=== PATIENT | female | born 1980 | race Caucasian/White ===

== ENCOUNTER 2016-07-16 15:57 | Emergency (ER) | payer SELFPAY ==
[~2016-07-16] VITALS: Ht 165.1 cm; Wt 70.0 kg
[~2016-07-16 15:57] MED LIST: BACT800T5 PO; EFFE75CA PO; FLUO10TA PO; IBUP800T23 PO; PRENTAB62 PO
[2016-07-16 15:58] VITALS: BP 120/74; PULSE 95; RESP 12; TEMP 97.9; O2SAT 98
[2016-08-27] MEDS ORDERED: BACL10TA PO (11:09)
[2016-08-28] MEDS ORDERED: CEFE2INJ2 IV (14:13)
== END 2016-07-16 16:27 | disposition left against medical advice (07) ==
LOC: NED 15:57
DX: R50.9 Fever, unspecified (principal); Z53.21 Procedure and treatment not carried out due to patient leaving prior to being seen by health care provider
CPT/HCPCS: 99281

== ENCOUNTER 2016-07-27 14:17 | Inpatient (IN) | payer OTHER ==
[2016-07-27 15:30] VITALS: BP 120/76; TEMP 98.3; O2SAT 97
--- NOTE | 2016-07-27 16:11 | PD ---
HPI Chief Complaint: Back/ Neck Pain or Injury Time Seen by Provider: 16:11 Travel History International Travel<30 days: No Contact w/Intl Traveler<30days: No History of Present Illness HPI 36 year old female with PMH of chronic back pain, presents to the ED via EMS for evaluation of one week history of left sided back pain. 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 Rated 10/10, worsened by movement. Patient also complains of increased urinary urgency, dysuria. She denies fever, chills. She states that she was seen at [facility], prescribed lortab and muscle relaxants with no improvement of symptoms. She states that she has been lying flat on her back for the last few days. She states that she was given "8 of Dilaudid" by a friend which helped her pain. Denies IVDA. PFSH Past Medical History Bipolar Disorder: Yes (? 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) Menopausal: No : 1 Para: 1 Social History Alcohol Use: Yes Tobacco Use: Yes Substance Use: Yes Allergies-Medications (Allergen,Severity, Reaction): Coded Allergies: Dimetapp (Verified Allergy, Severe, Hives, 11/21/15) Reported Meds & Prescriptions Reported Meds & Active Scripts Active Ibuprofen 800 Mg Tab 800 Mg PO TID Bactrim DS (Sulfamethoxazole-Trimethoprim DS) 1 Tab Tab 1 Tab PO BID Prozac (Fluoxetine HCl) 10 Mg Tab 10 Mg PO DAILY Vitamins Plus ( Vit W/ Ferrous Fumara) Plus Tab 1 Tab PO DAILY Reported Effexor Xr (Venlafaxine HCl) 75 Mg Cap 75 Mg PO BID Vitamins Plus ( Vit W/ Ferrous Fumara) Plus Tab 1 Tab PO Review of Systems Except as stated in HPI: all other systems reviewed are Neg Physical Exam Narrative GENERAL: Well-nourished, well-developed thin white female, sleeping under a blanket. SKIN: Warm and dry. Multiple tattoos. Multiple superficial scratches and punctures of the upper extremities without signs of infection. Patient states these are from yard work. HEAD: Normocephalic. EYES: No scleral icterus. No injection or drainage. NECK: Supple, trachea midline. No JVD or lymphadenopathy. No meningeal signs. CARDIOVASCULAR: Regular rate and rhythm without murmurs, gallops, or rubs. 2+ DP and radial pulses bilaterally. RESPIRATORY: Breath sounds clear and equal bilaterally. No accessory muscle use. GASTROINTESTINAL: Abdomen soft, nondistended. Tender to suprapubic palpation. MUSCULOSKELETAL: No cyanosis, or edema. NEUROLOGICAL: Awake and alert. Cranial nerves II through XII intact. Motor and sensory grossly within normal limits. 5/5 muscle strength in dorsiflexion, plantar flexion, knee flexion, hip flexion, manager regulatory strength. Normal speech. BACK: No midline tenderness or obvious deformity. No CVA tenderness. Tender to palpation of the left lateral flank and musculature of the left mid back. Data Data Last Documented VS Vital Signs Date Time Temp Pulse Resp B/P Pulse Ox O2 Delivery O2 Flow Rate FiO2 07/27/16 21:42 101 18 135/85 97 Room Air 07/27/16 15:30 98.3 Orders Complete Blood Count With Diff (07/27/16 16:23) Comprehensive Metabolic Panel (07/27/16 16:23) Urinalysis - C+S If Indicated (07/27/16 16:23) Ed Urine Pregnancytest Poc (07/27/16 16:23) Ct Abd/Pel W/O Iv Contrast (07/27/16 16:23) Ecg Monitoring (07/27/16 16:23) Iv Access Insert/Monitor (07/27/16 16:23) Sodium Chloride 0.9% Flush (Ns Flush) (07/27/16 16:30) Morphine Inj (Morphine Inj) (07/27/16 18:15) Sodium Chlor 0.9% 1000 Ml Inj (Ns 1000 M (07/27/16 18:08) Urine Culture (07/27/16 18:15) Ceftriaxone Inj (Rocephin Inj) (07/27/16 19:00) Chest, Single Ap (07/27/16 ) Morphine Inj (Morphine Inj) (07/27/16 21:30) Methocarbamol (Robaxin) (07/27/16 21:45) Blood Culture (07/27/16 22:04) Electrocardiogram (07/27/16 ) Vancomycin Inj (Vancomycin Inj) (07/27/16 22:15) Admit Order (Ed Use Only) (07/27/16 23:11) Labs Laboratory Tests Test 07/27/16 07/27/16 17:30 18:15 White Blood Count 9.6 TH/MM3 Red Blood Count 4.73 MIL/MM3 Hemoglobin 13.7 GM/DL Hematocrit 39.7 % Mean Corpuscular Volume 84.0 FL Mean Corpuscular Hemoglobin 29.0 PG Mean Corpuscular Hemoglobin 34.5 % Concent Red Cell Distribution Width 13.7 % Platelet Count 450 TH/MM3 Mean Platelet Volume 7.8 FL Neutrophils (%) (Auto) 81.4 % Lymphocytes (%) (Auto) 9.7 % Monocytes (%) (Auto) 8.3 % Eosinophils (%) (Auto) 0.3 % Basophils (%) (Auto) 0.3 % Neutrophils # (Auto) 7.8 TH/MM3 Lymphocytes # (Auto) 0.9 TH/MM3 Monocytes # (Auto) 0.8 TH/MM3 Eosinophils # (Auto) 0.0 TH/MM3 Basophils # (Auto) 0.0 TH/MM3 CBC Comment DIFF FINAL Differential Comment Sodium Level 137 MEQ/L Potassium Level 4.1 MEQ/L Chloride Level 98 MEQ/L Carbon Dioxide Level 26.3 MEQ/L Anion Gap 13 MEQ/L Blood Urea Nitrogen 14 MG/DL Creatinine 0.58 MG/DL Estimat Glomerular Filtration 118 ML/MIN Rate Random Glucose 109 MG/DL Calcium Level 8.9 MG/DL Total Bilirubin 0.4 MG/DL Aspartate Amino Transf 19 U/L (AST/SGOT) Alanine Aminotransferase 22 U/L (ALT/SGPT) Alkaline Phosphatase 75 U/L Total Protein 8.9 GM/DL Albumin 3.0 GM/DL Urine Color YELLOW Urine Turbidity CLOUDY Urine pH 6.0 Urine Specific [place] 1.016 Urine Protein TRACE mg/dL Urine Glucose (UA) NEG mg/dL Urine Ketones NEG mg/dL Urine Occult Blood MOD Urine Nitrite NEG Urine Bilirubin NEG Urine Urobilinogen 4.0 MG/DL Urine Leukocyte Esterase LARGE Urine RBC 4 /hpf Urine WBC 30 /hpf Urine Squamous Epithelial 58 /hpf Cells Urine Bacteria MOD /hpf Urine Hyaline Casts 9 /lpf Urine Mucus FEW /lpf Microscopic Urinalysis Comment CULTURE INDICATED MDM Medical Decision Making Medical Screen Exam Complete: Yes Emergency Medical Condition: Yes Differential Diagnosis musculoskeletal pain versus cystitis versus pyelonephritis versus nephroureterolithiasis versus spinal epidural abscess versus endocarditis versus drug-seeking behavior versus Narrative Course 36 year old female with PMH of chronic back pain, history IVDA, presents to the ED via EMS for evaluation of one week history of left sided back pain. 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 Rated 10/10, worsened by movement. Patient also complains of increased urinary urgency, dysuria. She denies fever, chills, current IVDU. She states that she was seen at [facility], prescribed lortab and muscle relaxants with no improvement of symptoms. She states that she has been lying flat on her back for the last few days. She states that she was given "8 of Dilaudid" by a friend which helped her pain. Denies IVDA. Vitals reviewed. Patient is tachycardic on presentation. Physical exam reveals a nontoxic-appearing white female, lying flat on her back, in no acute distress. Patient does become tearful, moaning with attempted physical exam. Abdominal exam positive for suprapubic tenderness. No midline tenderness of the back. Tender to palpation of the left flank and musculature of the left mid back. 5/5 strength of the bilateral lower extremities. No focal neuro deficits. IV established. Patient was administered a liter fluid, 4 mg morphine. CBC: WBC 9.6. Hemoglobin 13.7. CMP: unremarkable UA: Cloudy, moderate occult blood, large leukocyte esterase, 30 WBCs, moderate bacteria, culture pending. UPT: Negative CT of abdomen and pelvis: 1. left lower lobe consolidation, most characteristic of pneumonia. 2. moderate constipation with ileus. 3. renal calculi without renal uropathy. 4. mild bladder distention, no bladder stones per radiology read. CXR: No acute disease per radiology read. Patient was administered IV Rocephin. She reports some improvement of her symptoms on recheck. Patient does endorse a chronic cough which she states sounds "wet" but nonproductive. EKG, chest x-ray ordered, IV vancomycin, blood cultures 3 ordered. I discussed the patient, workup and plan of care with Dr. Evans. He feels that this patient is high risk for endocarditis secondary to IVDA. We'll admit to the medicine service for rule out. I spoke with who will accept this patient to the medical service for IV antibiotics. Please see medicine notes for disposition. Diagnosis Primary Impression: Pyelonephritis Additional Impressions: Left lower lobe pneumonia Qualified Code: J18.1 - Pneumonia of left lower lobe due to infectious organism History of intravenous drug use in remission Nikki Ackerman Jul 27, 2016 16:11
[2016-07-27] MEDS ORDERED: SODIUM CHLORIDE 0.9% FLUSH 5 ML FLUSH IVF PRN (16:30)
[2016-07-27] MEDS ORDERED: SODIUM CHLOR 0.9% 1000 ML INJ 1,000 ML IV SCH (18:08)
[2016-07-27] MEDS ORDERED: MORPHINE SULFATE 4 MG/ML INJ IV PUSH ONE ×2 (18:15→21:30)
[2016-07-27 18:23] LABS: AUTOMATED NEUTROPHIL # 7.8 TH/MM3 (1.8-7.7); BASOPHIL % 0.3 % (0.0-2.0); EOSINOPHIL % 0.3 % (0.0-4.0); HEMATOCRIT 39.7 % (35.0-46.0); HEMO FLAGS DIFF FINAL; LYMPH % 9.7 % (9.0-44.0); LYMPHOCYTE # 0.9 TH/MM3 (1.0-4.8); MEAN CORPUSCULAR HGB CONC 34.5 % (32.0-36.0); MONO % 8.3 % (0.0-8.0); NEUT % 81.4 % (16.0-70.0); PLATELET COUNT 450 TH/MM3 (150-450); RED BLOOD COUNT 4.73 MIL/MM3 (4.00-5.30); RED CELL DISTRIBUTION WIDTH 13.7 % (11.6-17.2); WHITE BLOOD COUNT 9.6 TH/MM3 (4.0-11.0)
[2016-07-27 18:39] LABS: BACTERIA, URINE MOD /hpf; BLOOD, URINE MOD (NEG); COMMENT (UR) CULTURE INDICATED; CULTURE IF INDICATED CULTURE INDICATED; GLUCOSE,URINE NEG (NEG); HYALINE CAST, URINE 9 /lpf (RARE); KETONE, URINE NEG (NEG); MUCUS URINE FEW /lpf (OCC); NITRITE,URINE NEG (NEG); SQUAMOUS EPITHELIAL CELL URINE 58 /hpf (0-5); URINE COLOR YELLOW (YELLW/STRAW)
[2016-07-27 18:47] LABS: ANION GAP 13 MEQ/L (5-15); AST (GOT) 19 U/L (15-37); BICARBONATE 26.3 MEQ/L (21.0-32.0); BLOOD UREA NITROGEN 14 MG/DL (7-18); CHLORIDE 98 MEQ/L (98-107); GLOMERULAR FILTRATION RATE 118 ML/MIN (>89); POTASSIUM 4.1 MEQ/L (3.5-5.1); SODIUM (NA) 137 MEQ/L (136-145)
[2016-07-27 18:50] LABS: ALKALINE PHOSPHATASE 75 U/L (45-117); ALT (GPT) 22 U/L (10-53); TOTAL BILIRUBIN ADULT 0.4 MG/DL (0.2-1.0)
[2016-07-27] MEDS ORDERED: cefTRIAXone INJ 1,000 MG in SODIUM CHLORIDE 0.9% INJ 100 ML IV ONE (19:00)
[2016-07-27 19:40] VITALS: BP 133/66; PULSE 74; RESP 20; O2SAT 98
--- NOTE | 2016-07-27 20:08 | RADRPT ---
EXAM DATE/TIME: 07/27/2016 19:04 [facility] COMPARISON: No previous studies available for comparison. INDICATIONS : Right-sided back pain with dysuria ORAL CONTRAST: No oral contrast ingested. RADIATION DOSE: 9.96 CTDIvol (mGy) MEDICAL HISTORY : Seizures. SURGICAL HISTORY : None documented. ENCOUNTER: Initial ACUITY: 1 week PAIN SCALE: 6/10 LOCATION: Right flank TECHNIQUE: Volumetric scanning of the abdomen and pelvis was performed. Using automated exposure control and ad justment of the mA and/or kV according to patient size, radiation dose was kept as low as reasonably achievable to obtain optimal diagnostic quality images. FINDINGS: There is consolidation in the left lower lobe medially most characteristic of a bronchopneumonia. No acute findings in the liver, spleen, adrenals, kidneys or pancreas. There is a diffuse ileus, cynthia cially large bowel with moderate constipation. No renal calculi or hydronephrosis identified. No acute bony abnormalities. CONCLUSION: 1. Left lower lobe consolidation medially most characteristic of pneumonia. Right lung is clear. 2. Moderate constipation with ileus. 3. No renal calculi or evidence for obstructive uropathy. 4. Bladder mildly distended. No bladder calculi. Ovidio Mac MD on July 27, 2016 at 20:03 Board Certified Radiologist. This report was verified electronically.
[2016-07-27 21:42] VITALS: BP 135/85; PULSE 101; RESP 18; O2SAT 97
[2016-07-27] MEDS ORDERED: METHOCARBAMOL 500 MG TAB PO ONE (21:45)
--- NOTE | 2016-07-27 21:53 | RADRPT ---
EXAM DATE/TIME: 07/27/2016 20:57 [facility] COMPARISON: No previous studies available for comparison. INDICATIONS : Chest and back pain. MEDICAL HISTORY : Seizures. SURGICAL HISTORY : None. ENCOUNTER: Initial ACUITY: 1 week PAIN SCORE: 10/10 LOCATION: Bilateral chest FINDINGS: A single view of the chest demonstrates the lungs to be symmetrically aerated without evidence of mas s, infiltrate or effusion. The cardiomediastinal contours are unremarkable. Osseous structures are intact. CONCLUSION: No acute disease. Ovidio Mac MD on July 27, 2016 at 21:51 Board Certified Radiologist. This report was verified electronically.
[2016-07-27] MEDS ORDERED: VANCOMYCIN INJ 1,150 MG in SODIUM CHLOR 0.9% 250 ML INJ 250 ML IV ONE (22:15)
[2016-07-27] MEDS ORDERED: NALOXONE HCL 0.4 MG/ML AMP IV PRN (23:45)
[2016-07-28] VITALS (7 sets, daily range): BP systolic 105–128; BP diastolic 67–84; PULSE 88–111; RESP 18–20; TEMP 97.6–98.7; O2SAT 96–99
[2016-07-28] MEDS ORDERED: diphenhydrAMINE HCL 25 MG CAP PO ONE (01:15)
[2016-07-28 05:20] LABS: AUTOMATED NEUTROPHIL # 6.5 TH/MM3 (1.8-7.7); BASOPHIL % 0.2 % (0.0-2.0); EOSINOPHIL % 0.3 % (0.0-4.0); HEMATOCRIT 36.5 % (35.0-46.0); HEMO FLAGS DIFF FINAL; LYMPH % 13.2 % (9.0-44.0); LYMPHOCYTE # 1.1 TH/MM3 (1.0-4.8); MEAN CELL VOLUME 84.7 FL (80.0-100.0); MEAN CORPUSCULAR HEMOGLOBIN 28.9 PG (27.0-34.0); MEAN CORPUSCULAR HGB CONC 34.1 % (32.0-36.0); MONO % 9.5 % (0.0-8.0); NEUT % 76.8 % (16.0-70.0); PLATELET COUNT 390 TH/MM3 (150-450); RED BLOOD COUNT 4.31 MIL/MM3 (4.00-5.30); RED CELL DISTRIBUTION WIDTH 13.7 % (11.6-17.2); WHITE BLOOD COUNT 8.5 TH/MM3 (4.0-11.0)
[2016-07-28 05:37] LABS: BICARBONATE 25.9 MEQ/L (21.0-32.0)
[2016-07-28] MEDS ORDERED: CYCLOBENZAPRINE HCL 10 MG TAB PO PRN (08:00)
[2016-07-28] MEDS ORDERED: PILL SPLITTER OTHER PRN (08:15)
[2016-07-28] MEDS: LEVOFLOXACIN 750 MG PREMIX INJ 150 ML IV SCH (08:16)
[2016-07-28] MEDS: ENOXAPARIN SODIUM 40 MG/0.4 ML SYRINGE SQ SCH (08:16)
[2016-07-28] MEDS: SODIUM CHLORIDE 0.9% FLUSH 5 ML FLUSH FLUSH SCH ×2 (08:17→19:58)
--- NOTE | 2016-07-28 14:33 | HHI.HP ---
HPI Service [facility] Primary Care Physician No Primary Care Physician Admission Diagnosis pyelonephritis, LLL pneumonia Diagnoses: Chief Complaint: back pain Travel History International Travel<30 Days: No Contact w/Intl Traveler <30 Da: No Traveled to Known Affected Are: No History of Present Illness 36-year-old female with history of IVDU, chronic back pain, sciatica, migraines , presents with a one-week history of back pain. 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 Denies fevers or chills. She went to [facility], given Lortab and muscle relaxers without any relief. States she has been mostly nonambulatory over the past few days. Her friend gave her a milligrams of oral Dilaudid which did eventually help the pain. Patient initially reported increase in urinary urgency and dysuria, UA with possible UTI. She denies any nausea/vomiting/diarrhea/ constipation. CT abdomen was done in the ER, showed LLL infiltrate. Upon questioning, she does report productive cough with yellow sputum for 1 month now worse over the past week. Denies any chest pain. She states the cough exacerbates her back pain. She admits to IV drug use, mostly with opiates, last use 8 days ago. She denies any history of endocarditis. She states she has been checked for HIV recently and was negative. Review of Systems Constitutional: DENIES: Diaphoretic episodes, Fever, Chills, Dizziness Endocrine: DENIES: Polydipsia, Polyuria, Polyphagia Eyes: DENIES: Blurred vision, Vision loss, Double Vision Ears, nose, mouth, throat: DENIES: Throat pain, Ear Pain, Running Nose, Odynophagia Respiratory: COMPLAINS OF: Cough, Sputum production, DENIES: Wheezing, Shortness of breath Cardiovascular: DENIES: Chest pain, Palpitations, Syncope, Dyspnea on Exertion , Lower Extremity Edema Gastrointestinal: DENIES: Abdominal pain, Constipation, Diarrhea, Nausea, Vomiting Genitourinary: COMPLAINS OF: Urgency, Dysuria, DENIES: Urinary frequency Musculoskeletal: COMPLAINS OF: Back pain, DENIES: Joint pain, Neck pain Integumentary: DENIES: Abnormal pigmentation, Pruritus, Rash Hematologic/lymphatic: DENIES: Bruising, Lymphadenopathy Immunologic/allergic: DENIES: Eczema, Urticaria Neurologic: COMPLAINS OF: Abnormal gait, DENIES: Headache, Localized weakness , Paresthesias Psychiatric: DENIES: Anxiety, Depression Past Family Social History Past Medical History chronic back pain sciatica migraines Past Surgical History Denies any prior surgeries. Reported Medications Denies taking any medications on a regular basis. Took friend's po dilaudid recently. Also recently prescribed [place] and muscle relaxers. Allergies: Coded Allergies: Dimetapp (Verified Allergy, Severe, Hives, 11/21/15) Active Ordered Medications Current Medications Medications (Trade) Dose Ordered Sig/Mendez Route Start Time Stop Time Status Last Admin (NS Flush) 2 ml UNSCH PRN FLUSH 07/27/16 23:45 (NS Flush) 2 ml BID FLUSH 07/28/16 09:00 07/28/16 08:17 (Lovenox Inj) 40 mg Q24H SQ 07/28/16 09:00 07/28/16 08:16 Naloxone HCl 0.4 mg 0.4 mg UNSCH PRN IV 07/27/16 23:45 (Levaquin 750 Mg Premix Inj) 150 ml @ 100 mls/hr Q24H IV 07/28/16 09:00 07/28/16 08:16 (Flexeril) 5 mg Q8H PRN PO 07/28/16 08:00 07/28/16 08:17 (Pill Splitter) 1 ea UNSCH PRN OTHER 07/28/16 08:15 Family History Denies any significant family history of cancer, stroke, diabetes, or heart disease. Social History Tobacco Use: 1PPD since teenager, now down to 4 cigarettes daily and using vapor Alcohol Use: Denies Illicit Drug use: The patient admits to IVDU, last use 8 days ago, injects "Roxys" and other opiates. Physical Exam Vital Signs Vital Signs Date Time Temp Pulse Resp B/P Pulse Ox O2 Delivery O2 Flow Rate FiO2 07/28/16 08:13 Room Air 2/7/17 08:13 97.9 96 18 125/78 96 07/28/16 08:00 104 07/28/16 06:08 98.7 88 20 125/78 97 07/28/16 03:42 100 07/28/16 00:38 96 18 123/84 99 Room Air 07/27/16 21:42 101 18 135/85 97 Room Air 07/27/16 19:40 74 20 133/66 98 Room Air 07/27/16 15:30 98.3 110 16 120/76 97 Room Air Physical Exam GENERAL: Well-nourished, well-developed middle aged female patient in [facility]. SKIN: Warm and dry. No rash. HEAD: Normocephalic. Atraumatic. EYES: Pupils equal and round. No scleral icterus. No injection or drainage. ENT: No nasal bleeding or discharge. Mucous membranes pink and moist. Oral mucosa with small amount of white exudate. NECK: Supple. Trachea midline. CARDIOVASCULAR: Regular rate and rhythm. S1, S2 noted. No murmur appreciated. RESPIRATORY: No accessory muscle use. Clear to auscultation. Breath sounds equal bilaterally. GASTROINTESTINAL: Abdomen soft, non-tender, nondistended. Normoactive bowel sounds x4. MUSCULOSKELETAL: No obvious deformities. Extremities without clubbing, cyanosis , or edema. Left lumbar paraspinous muscle with diffuse TTP. No lumbar bony point tenderness or overlying skin changes. NEUROLOGICAL: Awake and alert. No obvious cranial nerve deficits. Motor grossly within normal limits. 5/5 muscle strength in bilateral upper and lower extremities. Normal speech. PSYCHIATRIC:Anxious mood; insight and judgment normal. Laboratory Laboratory Tests Test 07/27/16 07/27/16 07/28/16 17:30 18:15 04:56 White Blood Count 9.6 8.5 Red Blood Count 4.73 4.31 Hemoglobin 13.7 12.5 Hematocrit 39.7 36.5 Mean Corpuscular Volume 84.0 84.7 Mean Corpuscular Hemoglobin 29.0 28.9 Mean Corpuscular Hemoglobin 34.5 34.1 Concent Red Cell Distribution Width 13.7 13.7 Platelet Count 450 390 Mean Platelet Volume 7.8 7.3 Neutrophils (%) (Auto) 81.4 76.8 Lymphocytes (%) (Auto) 9.7 13.2 Monocytes (%) (Auto) 8.3 9.5 Eosinophils (%) (Auto) 0.3 0.3 Basophils (%) (Auto) 0.3 0.2 Neutrophils # (Auto) 7.8 6.5 Lymphocytes # (Auto) 0.9 1.1 Monocytes # (Auto) 0.8 0.8 Eosinophils # (Auto) 0.0 0.0 Basophils # (Auto) 0.0 0.0 CBC Comment DIFF FINAL DIFF FINAL Differential Comment Sodium Level 137 134 Potassium Level 4.1 4.0 Chloride Level 98 100 Carbon Dioxide Level 26.3 25.9 Anion Gap 13 8 Blood Urea Nitrogen 14 12 Creatinine 0.58 0.64 Estimat Glomerular Filtration 118 105 Rate Random Glucose 109 127 Calcium Level 8.9 8.8 Total Bilirubin 0.4 Aspartate Amino Transf 19 (AST/SGOT) Alanine Aminotransferase 22 (ALT/SGPT) Alkaline Phosphatase 75 Total Protein 8.9 Albumin 3.0 Urine Color YELLOW Urine Turbidity CLOUDY Urine pH 6.0 Urine Specific [place] 1.016 Urine Protein TRACE Urine Glucose (UA) NEG Urine Ketones NEG Urine Occult Blood MOD Urine Nitrite NEG Urine Bilirubin NEG Urine Urobilinogen 4.0 Urine Leukocyte Esterase LARGE Urine RBC 4 Urine WBC 30 Urine Squamous Epithelial 58 Cells Urine Bacteria MOD Urine Hyaline Casts 9 Urine Mucus FEW Microscopic Urinalysis Comment CULTURE INDICATED Date/Time Procedure Status Source Growth 07/27/16 18:15 Urine Culture - Final Complete Urine Clean Catch 50-100,000 CFU/ML MIXED LYNDSAY... 07/27/16 00:40 Aerobic Blood Culture Received Blood Line Pending 07/27/16 00:40 Anaerobic Blood Culture Received Blood Line Pending Result Diagram: 07/28/16 0456 07/28/16 0456 Imaging Last Impressions Abdomen/Pelvis CT 07/27/16 1623 Signed Impressions: Service Date/Time: Wednesday, July 27, 2016 19:04 - CONCLUSION: 1. Left lower lobe consolidation medially most characteristic of pneumonia. Right lung is clear. 2. Moderate constipation with ileus. 3. No renal calculi or evidence for obstructive uropathy. 4. Bladder mildly distended. No bladder calculi. Ovidio Mac MD Chest X-Ray 07/27/16 0000 Signed Impressions: Service Date/Time: Wednesday, July 27, 2016 20:57 - CONCLUSION: No acute disease. Ovidio Mac MD Assessment and Plan Assessment and Plan 36-year-old female with history of IVDU, chronic back pain, sciatica, migraines , presents with a one-week history of back pain. Community Acquired LLL Pneumonia: seen on CT abd, images reviewed by me. WBC 9.6K upon arrival, afebrile, does not meet sepsis criteria. Continue on IV Levaquin. Check sputum culture. Monitor blood cultures. Abnormal UA: UA with possible UTI, given IV Rocephin, however urine culture with 50-100K mixed lyndsay, likely contaminants. D/c IV Rocephin. On IV levaquin for pneumonia as above. 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 No distal numbness/tingling. No cauda equina. Check lumbar xray. Give tramadol prn, IV toradol prn breakthrough pain, avoid IV narcotics with hx of IVDU. Give Flexeril 10mg po q8h prn spasms. Ordered K thermia pad. PT consult. Oral Candidiasis: start on Magic Mouthwash 5ml SS qid. IVDU: counseled on cessation. Last use 8days ago. Does not appear to be in withdrawal. Monitor blood cultures. ' Tobacco Use: counseled on cessation, nicotine patch prn. DVT Prophylaxis: Lovenox Written by Emilee Barriga, acting as scribe for Dr. Goodwin on 07/28/16 at 14:33. The documentation accurately reflects the work performed [id number] by me Dr. Goodwin on 07/28/16 at 14:33. Code Status Full Discussed Condition With Patient, Emilee Rapp PA-C Jul 28, 2016 14:33 Sandra Goodwin MD Jul 28, 2016 18:10
--- NOTE | 2016-07-28 17:03 | EKG ---
Date Performed: 07/28/2016 Time Performed: 00:57:20 PTAGE: 36 years EKG: SINUS TACHYCARDIA POSSIBLE LEFT ATRIAL ENLARGEMENT NONSPECIFIC T-WAVE ABNORMALITY ABNORMAL RHYTHM ECG NO PREVIOUS TRACING DOCTOR: Curt Sims Interpretating Date/Time 07/28/2016 16:59:46
[2016-07-28] MEDS: CYCLOBENZAPRINE HCL 10 MG TAB PO PRN (17:22)
[2016-07-28] MEDS: NYSTAT/DIPHENHY/LIDO MOUTHWASH (Adult) 120ML SWISH-SWAL SCH ×2 (17:22→19:58)
[2016-07-28] MEDS ORDERED: traMADol HCL 50 MG TAB PO PRN (17:30)
[2016-07-28] MEDS: KETOROLAC TROMETHAMINE 30 MG/ML (IVP) VIAL IVP PRN (19:36)
--- NOTE | 2016-07-28 20:09 | RADRPT ---
EXAM DATE/TIME: 07/28/2016 18:52 [facility] COMPARISON: No previous studies available for comparison. INDICATIONS : Severe lower back pain. MEDICAL HISTORY : Seizures. SURGICAL HISTORY : None. ENCOUNTER: Initial ACUITY: 1 day PAIN SCORE: 10/10 LOCATION: Bilateral Lower back. FINDINGS: Two view examination was performed. No acute fracture or spondylolisthesis. Moderate degenerative nikole nge at the lumbosacral junction. Small Schmorl's nodes at L1, L2, L3 and L4. CONCLUSION: 1. No acute findings. Degenerative change as above. Ovidio Mac MD on July 28, 2016 at 20:05 Board Certified Radiologist. This report was verified electronically.
[2016-07-29] MEDS: CYCLOBENZAPRINE HCL 10 MG TAB PO PRN ×2 (01:12→10:21)
[2016-07-29] MEDS: KETOROLAC TROMETHAMINE 30 MG/ML (IVP) VIAL IVP PRN ×2 (03:42→20:16)
[2016-07-29 03:49] VITALS: BP 124/82; PULSE 93; RESP 18; TEMP 97.9; O2SAT 99
[2016-07-29 05:28] LABS: AUTOMATED NEUTROPHIL # 5.4 TH/MM3 (1.8-7.7); BASOPHIL % 0.3 % (0.0-2.0); EOSINOPHIL % 0.5 % (0.0-4.0); HEMATOCRIT 39.2 % (35.0-46.0); HEMO FLAGS DIFF FINAL; LYMPH % 18.9 % (9.0-44.0); LYMPHOCYTE # 1.5 TH/MM3 (1.0-4.8); MEAN CELL VOLUME 83.2 FL (80.0-100.0); MEAN CORPUSCULAR HEMOGLOBIN 28.5 PG (27.0-34.0); MEAN CORPUSCULAR HGB CONC 34.2 % (32.0-36.0); MONO % 10.5 % (0.0-8.0); NEUT % 69.8 % (16.0-70.0); PLATELET COUNT 460 TH/MM3 (150-450); RED BLOOD COUNT 4.71 MIL/MM3 (4.00-5.30); RED CELL DISTRIBUTION WIDTH 13.8 % (11.6-17.2); WHITE BLOOD COUNT 7.8 TH/MM3 (4.0-11.0)
[2016-07-29 05:47] LABS: BICARBONATE 24.5 MEQ/L (21.0-32.0); MAGNESIUM 2.3 MG/DL (1.5-2.5)
[2016-07-29] MEDS: NYSTAT/DIPHENHY/LIDO MOUTHWASH (Adult) 120ML SWISH-SWAL SCH ×4 (08:31→20:15)
[2016-07-29] MEDS: LEVOFLOXACIN 750 MG PREMIX INJ 150 ML IV SCH (08:31)
[2016-07-29] MEDS: SODIUM CHLORIDE 0.9% FLUSH 5 ML FLUSH FLUSH SCH ×2 (08:31→20:16)
[2016-07-29] MEDS: ENOXAPARIN SODIUM 40 MG/0.4 ML SYRINGE SQ SCH (08:31)
[2016-07-29 08:34] VITALS: BP 89/56; PULSE 87; RESP 20; TEMP 98.1; O2SAT 98
--- NOTE | 2016-07-29 10:52 | HHI.PR ---
Subjective Remarks Follow up for fever, pneumonia, low back pain. The patient reports feeling much better today. No fevers overnight. Cough has improved, now nonproductive, unable to provide a sputum culture. Back pain also improved, she was able to ambulate with physical therapy today. Bowel movement normal, no diarrhea. Later on this morning, blood cultures resulted as positive, discussed with the patient. Objective Vitals Vital Signs Date Time Temp Pulse Resp B/P Pulse Ox O2 Delivery O2 Flow Rate FiO2 07/29/16 08:34 98.1 87 20 89/56 98 07/29/16 04:42 16 07/29/16 03:49 97.9 93 18 124/82 99 07/28/16 21:54 Room Air 07/28/16 21:06 98.0 99 18 105/67 97 07/28/16 14:37 97.6 111 18 128/83 97 I/O 07/28/16 07/28/16 07/28/16 07/29/16 07/29/16 07/29/16 07:00 15:00 23:00 07:00 15:00 23:00 Intake Total 390 ml Balance 390 ml Intake Oral 240 ml IV Total 150 ml # Voids 3 1 # Bowel Movements 1 Result Diagram: 07/29/16 0455 07/29/16 0455 Imaging Last Impressions Lumbar Spine X-Ray 07/28/16 0000 Signed Impressions: Service Date/Time: Thursday, July 28, 2016 18:52 - CONCLUSION: 1. No acute findings. Degenerative change as above. Ovidio Mac MD Abdomen/Pelvis CT 07/27/16 1623 Signed Impressions: Service Date/Time: Wednesday, July 27, 2016 19:04 - CONCLUSION: 1. Left lower lobe consolidation medially most characteristic of pneumonia. Right lung is clear. 2. Moderate constipation with ileus. 3. No renal calculi or evidence for obstructive uropathy. 4. Bladder mildly distended. No bladder calculi. Ovidio Mac MD Chest X-Ray 07/27/16 0000 Signed Impressions: Service Date/Time: Wednesday, July 27, 2016 20:57 - CONCLUSION: No acute disease. Ovidio Mac MD Objective Remarks GENERAL: Well-nourished, well-developed middle aged female patient in [facility]. SKIN: Warm and dry. No rash. HEAD: Normocephalic. Atraumatic. EYES: Pupils equal and round. No scleral icterus. No injection or drainage. ENT: No nasal bleeding or discharge. Mucous membranes pink and moist. Oral mucosa with small amount of white exudate. NECK: Supple. Trachea midline. CARDIOVASCULAR: Tachycardic, Regular rhythm. S1, S2 noted. No murmur appreciated. RESPIRATORY: No accessory muscle use. Clear to auscultation. Breath sounds equal bilaterally. GASTROINTESTINAL: Abdomen soft, non-tender, nondistended. Normoactive bowel sounds x4. MUSCULOSKELETAL: No obvious deformities. Extremities without clubbing, cyanosis , or edema. Left lumbar paraspinous muscle with diffuse TTP. No lumbar bony point tenderness or overlying skin changes. NEUROLOGICAL: Awake and alert. No obvious cranial nerve deficits. Motor grossly within normal limits. 5/5 muscle strength in bilateral upper and lower extremities. Normal speech. PSYCHIATRIC: Appropriate mood; insight and judgment normal. Medications and IVs Current Medications Medications (Trade) Dose Ordered Sig/Mendez Route Start Time Stop Time Status Last Admin (NS Flush) 2 ml UNSCH PRN FLUSH 07/27/16 23:45 (NS Flush) 2 ml BID FLUSH 07/28/16 09:00 07/29/16 08:31 (Lovenox Inj) 40 mg Q24H SQ 07/28/16 09:00 07/29/16 08:31 (Narcan Inj) 0.4 mg UNSCH PRN IV 07/27/16 23:45 (Pill Splitter) 1 ea UNSCH PRN OTHER 07/28/16 08:15 (Magic Mouthwash Adult Liq) 5 ml QID SWISH-SWAL 07/28/16 18:00 07/29/16 12:47 (Flexeril) 10 mg Q8H PRN PO 07/28/16 16:00 07/29/16 10:21 (Toradol Inj) 15 mg Q6H PRN IVP 07/28/16 17:30 08/02/16 17:29 07/29/16 03:42 (Ultram) 50 mg Q4H PRN PO 07/28/16 17:30 07/29/16 12:46 (Ultram) 100 mg Q4H PRN PO 07/28/16 17:30 Guaifenesin 600 mg 600 mg BID PO 07/29/16 11:00 07/29/16 11:34 Pharmacy Profile Note 0 ml @ 0 mls/hr UNSCH OTHER 07/29/16 11:00 (Vancomycin Inj/ NS 250 ml Inj) 250 ml @ 250 mls/hr Q12H IV 07/29/16 12:00 07/29/16 12:47 Miscellaneous Information SPECIFIC LAB TO BE DRAWN:VANCOMYCIN TROUGH DATE TO... ONCE ONCE XX 07/30/16 23:45 07/30/16 23:46 (Prostaphlin Inj/ NS Inj) 100 ml @ 200 mls/hr Q4H IV 07/29/16 16:00 (Levaquin) 750 mg DAILY@11 PO 07/30/16 11:00 A/P Problem List: (1) Bacteremia ICD Code: R78.81 Status: Acute (2) Left lower lobe pneumonia ICD Code: J18.1 Status: Acute (3) IVDU (intravenous drug user) ICD Code: F19.90 Status: Acute Assessment and Plan 36-year-old female with history of IVDU, chronic back pain, sciatica, migraines , presents with a one-week history of back pain. Bacteremia: 2/ blood cultures with gram positive cocci. Repeat blood cultures x2. Started IV Vanco. Consulted ID who started IV Oxacillin in addition to vanco. Check ESR/CRP, lumbar spine MRI r/out discitis/osteomyelitis. Check echocardiogram to eval for endocarditis. Community Acquired LLL Pneumonia: seen on CT abd, images reviewed by me. WBC 9.6K upon arrival, afebrile, does not meet sepsis criteria. Continue on Levaquin. Check sputum culture. ID recommends repeat CXR in 2 days. Abnormal UA: UA with possible UTI, given IV Rocephin, however urine culture with 50-100K mixed lyndsay, likely contaminants. D/c IV Rocephin. On levaquin for pneumonia as above. 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 No distal numbness/tingling/cauda equina. Lumbar xray unremarkable. Give tramadol prn, IV toradol prn breakthrough pain, avoid IV narcotics with hx of IVDU. Give Flexeril 10mg po q8h prn spasms. Ordered K thermia pad. PT consult. Oral Candidiasis: start on Magic Mouthwash 5ml SS qid. IVDU: counseled on cessation. Last use 8days ago. Does not appear to be in withdrawal. Blood cultures positive as above. Tobacco Use: counseled on cessation, nicotine patch prn. DVT Prophylaxis: Lovenox Written by Emilee Barriga, acting as scribe for Dr. Goodwin on 07/29/16 at 10:50. The documentation accurately reflects the work performed [id number] by me Dr. Goodwin on 07/29/16 at 10:50. Problem Qualifiers (1) Left lower lobe pneumonia: Qualified Code: J18.1 - Pneumonia of left lower lobe due to infectious organism Emilee Barriga PA-C Jul 29, 2016 10:52 Sandra Goodwin MD Jul 29, 2016 16:32
[2016-07-29] MEDS ORDERED: Vancomycin Consult Pharmacy 1 EA OTHER SCH (11:00)
[2016-07-29] MEDS: guaiFENesin E.R. 600 MG TAB PO SCH ×2 (11:34→20:16)
[2016-07-29 12:33] VITALS: BP 107/63; PULSE 100; RESP 16; TEMP 98; O2SAT 99
[2016-07-29] MEDS: traMADol HCL 50 MG TAB PO PRN ×2 (12:46→17:43)
[2016-07-29] MEDS: VANCOMYCIN 1,000 MG/NS 250 ML IV SCH ×2 (12:47)
--- NOTE | 2016-07-29 13:34 | PD.CONS ---
History of Present Illness Service Infectious disease Consult Requested By Ham Millan Reason for Consult Evaluate patient with possible blood culture Primary Care Physician No Primary Care Physician Diagnoses: History of Present Illness Patient seen and examined. Records reviewed. Patient is a 36-year-old female presented to the hospital for further evaluation of worsening back pain. Patient's problems started about a week and a half ago when she started experiencing low back pain. 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 She's had previous problem with sciatica and thought it might be her sciatica. It the pain was bad and it started radiating to her posterior left lower extremity. Been able to do any activity, and has been in bed for most of the time. She was also experiencing some subjective fevers, and was getting significant sweats. She has a chronic smoker's cough with no sputum production, and has not really noted any significant change. Denies any shortness of breath or any chest pain. She has not had any abdominal pain nausea vomiting or diarrhea. Ice any dysuria but noted that her urine was tea colored. Denies any vaginal discharge. She denies any urinary incontinence or urinary retention. She has known IV drug use, and the last time she used drugs was in the last several weeks. She has not had any prior infection in any of her injection sites. Patient presented to the hospital, and she has not been febrile. 2 blood cultures done and are now reported as growing gram-positive cocci. She also has an abnormal urinalysis. Her CT of the abdomen and pelvis did not show any significant intra-abdominal pathogen, but there are some suggestion of some infiltrates in the left base. Infectious disease consultation is requested to evaluate the patient. Review of Systems Constitutional: COMPLAINS OF: Diaphoretic episodes, Fever, Chills Eyes: DENIES: Eye pain Ears, nose, mouth, throat: DENIES: Vertigo, Oral lesions, Throat pain, Hoarseness, Ear Pain, Running Nose, Sinus Pain, Toothache Respiratory: COMPLAINS OF: Cough, DENIES: Hemoptysis, Sputum production, Shortness of breath Cardiovascular: DENIES: Chest pain, Palpitations, Syncope Gastrointestinal: DENIES: Abdominal pain, Diarrhea, Nausea, Vomiting, Difficulty Swallowing Genitourinary: DENIES: Urgency, Hematuria, Dysuria Musculoskeletal: COMPLAINS OF: Muscle aches, Back pain, DENIES: Neck pain Integumentary: DENIES: Pruritus, Rash Immunologic/allergic: DENIES: Urticaria Neurologic: DENIES: Headache Psychiatric: DENIES: Anxiety Past Family Social History Allergies: Coded Allergies: Dimetapp (Verified Allergy, Severe, Hives, 11/21/15) Past Medical History chronic back pain sciatica migraines 2 pregnancies, and 2 spontaneous vaginal delivery Previous HIV testing negative, last one probably in the last 6-12 months done [facility] Past Surgical History None Active Ordered Medications Flexeril Lovenox Mucinex Portal Levaquin Ultram Vancomycin Social History Used to smoke a pack a day of cigarettes, started using E vapor and had cut down significantly on her smoking Denies alcohol abuse Patient admits to IV drug use Physical Exam Vital Signs Vital Signs Date Time Temp Pulse Resp B/P Pulse Ox O2 Delivery O2 Flow Rate FiO2 07/29/16 12:33 98.0 100 16 107/63 99 07/29/16 08:34 98.1 87 20 89/56 98 07/29/16 04:42 16 07/29/16 03:49 97.9 93 18 124/82 99 07/28/16 21:54 Room Air 07/28/16 21:06 98.0 99 18 105/67 97 07/28/16 14:37 97.6 111 18 128/83 97 Physical Exam GENERAL: This is a thin, well-developed female, awake and alert, looks acutely ill appearing, in distress due to her back pain. Not in respiratory distress. SKIN: Warm and moist, no generalized rash, no ecchymosis or embolic lesions. She has some track hernandez in her upper extremities. HEAD: Atraumatic. Normocephalic. No temporal or scalp tenderness. EYES: Pale conjunctivae, no petechia or hemorrhage. Pupils equal round and reactive. Extraocular motions intact. No scleral icterus. No injection or drainage. ENT: Nose without bleeding, or purulent drainage. Moist oral mucosa. Throat without erythema or exudate. Uvula midline. Airway patent. NECK: Trachea midline. No JVD , Has some cervical lymphadenopathy. Supple, nontender, no meningeal signs. CARDIOVASCULAR: Regular rate and rhythm without murmurs, gallops, or rubs. RESPIRATORY: Clear to auscultation. Breath sounds equal bilaterally. No wheezes , rales, or rhonchi. GASTROINTESTINAL: Abdomen soft, non-tender, nondistended. No hepato-splenomegaly , or palpable masses. Bowel sounds are present and normoactive. No guarding. MUSCULOSKELETAL: Extremities without clubbing, cyanosis, or edema. No joint tenderness, effusion, or edema noted. No calf tenderness. Negative Homans sign bilaterally. NEUROLOGICAL: Awake and alert. Cranial nerves II through XII intact. Motor and sensory grossly within normal limits. Five out of 5 muscle strength in all muscle groups. Normal speech. BACK: NO CVA tenderness, no spine point tenderness LINE: PIV with no evidence of infection Laboratory Laboratory Tests Test 07/29/16 04:55 White Blood Count 7.8 Red Blood Count 4.71 Hemoglobin 13.4 Hematocrit 39.2 Mean Corpuscular Volume 83.2 Mean Corpuscular Hemoglobin 28.5 Mean Corpuscular Hemoglobin 34.2 Concent Red Cell Distribution Width 13.8 Platelet Count 460 Mean Platelet Volume 7.5 Neutrophils (%) (Auto) 69.8 Lymphocytes (%) (Auto) 18.9 Monocytes (%) (Auto) 10.5 Eosinophils (%) (Auto) 0.5 Basophils (%) (Auto) 0.3 Neutrophils # (Auto) 5.4 Lymphocytes # (Auto) 1.5 Monocytes # (Auto) 0.8 Eosinophils # (Auto) 0.0 Basophils # (Auto) 0.0 CBC Comment DIFF FINAL Differential Comment Sodium Level 135 Potassium Level 4.0 Chloride Level 101 Carbon Dioxide Level 24.5 Anion Gap 10 Blood Urea Nitrogen 17 Creatinine 0.57 Estimat Glomerular Filtration 120 Rate Random Glucose 109 Calcium Level 9.4 Phosphorus Level 3.9 Magnesium Level 2.3 Vitamin B12 Level 365 25-Hydroxy Vitamin D Total 22.5 Date/Time Procedure Status Source Growth 07/29/16 12:21 Aerobic Blood Culture Received Blood Peripheral Pending 07/29/16 12:21 Anaerobic Blood Culture Received Blood Peripheral Pending 07/27/16 18:15 Urine Culture - Final Complete Urine Clean Catch 50-100,000 CFU/ML MIXED FAUSTINO... 07/27/16 00:40 Aerobic Blood Culture - Preliminary Resulted Blood Line Gram Positive Cocci 07/27/16 00:40 Anaerobic Blood Culture - Preliminary Resulted Blood Line NO GROWTH IN 1 DAY Result Diagram: 07/29/16 0455 07/29/16 0455 Imaging RADIOLOGY STUDIES/FILMS REVIEWED Lumbar Spine X-Ray 07/28/16 0000 Signed Impressions: Service Date/Time: Thursday, July 28, 2016 18:52 - CONCLUSION: 1. No acute findings. Degenerative change as above. Ovidio Mac MD Abdomen/Pelvis CT 07/27/16 1623 Signed Impressions: Service Date/Time: Wednesday, July 27, 2016 19:04 - CONCLUSION: 1. Left lower lobe consolidation medially most characteristic of pneumonia. Right lung is clear. 2. Moderate constipation with ileus. 3. No renal calculi or evidence for obstructive uropathy. 4. Bladder mildly distended. No bladder calculi. Ovidio Mac MD Chest X-Ray 07/27/16 0000 Signed Impressions: Service Date/Time: Wednesday, July 27, 2016 20:57 - CONCLUSION: No acute disease. Ovidio Mac MD Assessment and Plan Assessment and Plan IMPRESSION Sepsis on presentation, has (+) BC, patient with IVDU and back pain - concern is back infection, discitis, osteo - R/O endocarditis (+) UA, no significant symptoms Known active IVDU RECOMMENDATION Repeat blood culture to document clearing Echocardiogram to evaluate the valves MRI of the lumbar spine to look at the disc and spine Continue vancomycin Also on Levaquin for questionable pneumonia - Will need to repeat chest x-ray in a few days Add oxacillin Once gram-positive cocci identified, if MSSA, will use oxacillin, and if MRSA will use IV vancomycin Monitor progress Follow cultures and adjust antibiotics accordingly I will determine course of antibiotics once workup is completed I will follow along with you. Thank you for this consultation Discussed Condition With Explained plan to the patient Tamika Leiva MD Jul 29, 2016 13:34
[2016-07-29 14:32] VITALS: BP 103/64; PULSE 108; RESP 14; TEMP 98.3
[2016-07-29] MEDS: OXACILLIN INJ 2 GM in SODIUM CHLORIDE 0.9% INJ 100 ML IV SCH ×2 (15:38→20:16)
[2016-07-29] MEDS: NICOTINE 14 MG/24 HR PATCH TD SCH (17:56)
[2016-07-30] MEDS: OXACILLIN INJ 2 GM in SODIUM CHLORIDE 0.9% INJ 100 ML IV SCH ×4 (00:44→11:28)
[2016-07-30] MEDS: VANCOMYCIN 1,000 MG/NS 250 ML IV SCH ×2 (00:44)
[2016-07-30] MEDS: KETOROLAC TROMETHAMINE 30 MG/ML (IVP) VIAL IVP PRN (03:06)
[2016-07-30 03:16] VITALS: BP 104/73; PULSE 88; RESP 21; TEMP 98.6; O2SAT 98
[2016-07-30 07:06] VITALS: BP 93/67; PULSE 88; RESP 14; TEMP 97; O2SAT 97
[2016-07-30] MEDS: REMOVE OLD PATCH TD SCH (09:00)
[2016-07-30] MEDS: guaiFENesin E.R. 600 MG TAB PO SCH ×2 (09:00→21:00)
--- NOTE | 2016-07-30 09:19 | HHI.PR ---
Subjective Remarks Follow-up for bacteremia. The patient reports her cough is improving. Tolerating diet. Normal BM. Denies any fever, chills, chest pain, shortness breath, nausea, vomiting, rash. Objective Vitals Vital Signs Date Time Temp Pulse Resp B/P Pulse Ox O2 Delivery O2 Flow Rate FiO2 07/30/16 07:06 97.0 88 14 93/67 97 07/30/16 04:07 16 07/30/16 03:16 98.6 88 21 104/73 98 07/29/16 14:32 98.3 108 14 103/64 07/29/16 12:33 98.0 100 16 107/63 99 I/O 07/29/16 07/29/16 07/29/16 07/30/16 07/30/16 07/30/16 07:00 15:00 23:00 07:00 15:00 23:00 Intake Total 390 ml 875 ml Balance 390 ml 875 ml Intake Oral 240 ml 500 ml IV Total 150 ml 375 ml # Voids 1 1 Result Diagram: 07/29/16 0455 07/29/16 0455 Imaging Last Impressions Lumbar Spine X-Ray 07/28/16 0000 Signed Impressions: Service Date/Time: Thursday, July 28, 2016 18:52 - CONCLUSION: 1. No acute findings. Degenerative change as above. Ovidio Mac MD Abdomen/Pelvis CT 07/27/16 1623 Signed Impressions: Service Date/Time: Wednesday, July 27, 2016 19:04 - CONCLUSION: 1. Left lower lobe consolidation medially most characteristic of pneumonia. Right lung is clear. 2. Moderate constipation with ileus. 3. No renal calculi or evidence for obstructive uropathy. 4. Bladder mildly distended. No bladder calculi. Ovidio Mac MD Chest X-Ray 07/27/16 0000 Signed Impressions: Service Date/Time: Wednesday, July 27, 2016 20:57 - CONCLUSION: No acute disease. Ovidio Mac MD Objective Remarks GENERAL: Well-developed well-nourished. In no acute distress. SKIN: Warm and dry. No lesions noted. HEENT: Normocephalic. Pupils equal and round. Mucous membranes pink and moist. CARDIOVASCULAR: Regular rate and rhythm. No murmur appreciated. RESPIRATORY: No accessory muscle use. Clear to auscultation. Breath sounds equal bilaterally. GASTROINTESTINAL: Abdomen soft, non-tender, nondistended. Bowel sounds x4. MUSCULOSKELETAL: No obvious deformities. No clubbing or cyanosis. No edema. NEUROLOGICAL: Awake and alert. No focal neurological deficits. Moves upper and lower extremities spontaneously. Normal speech. PSYCHIATRIC: Appropriate mood and affect; insight and judgment normal. A/P Problem List: (1) Bacteremia ICD Code: R78.81 Status: Acute (2) Left lower lobe pneumonia ICD Code: J18.1 Status: Acute (3) IVDU (intravenous drug user) ICD Code: F19.90 Status: Acute Assessment and Plan 36-year-old female with history of IVDU, chronic back pain, sciatica, migraines , presents with a one-week history of back pain. Bacteremia: 2/4 blood cultures with gram positive cocci. Repeat blood cultures x2 pending. Continue IV Vanco. Consulted ID who started IV Oxacillin in addition to vanco. ESR/CRP elevated. Ordered lumbar spine MRI r/out discitis/ osteomyelitis. Check echocardiogram to eval for endocarditis. Community Acquired LLL Pneumonia: Consolidation seen on CT abd. WBC 9.6K upon arrival, afebrile, does not meet sepsis criteria. Continue on Levaquin. Sputum culture pending. ID recommends repeat CXR in a few days. Abnormal UA: UA with possible UTI, given IV Rocephin, however urine culture with 50-100K mixed lyndsay, likely contaminants. D/c IV Rocephin. On levaquin for pneumonia as above. 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 No distal numbness/tingling/cauda equina. Lumbar xray unremarkable. Give tramadol prn, IV toradol prn breakthrough pain, avoid IV narcotics with hx of IVDU. Flexeril 10mg po q8h prn spasms. Ordered K thermia pad. PT consult. Oral Candidiasis: Continue Magic Mouthwash 5ml SS qid. IVDU: counseled on cessation. Last use 8days prior to admission. Does not appear to be in withdrawal. Blood cultures positive as above. Tobacco Use: counseled on cessation, nicotine patch prn. DVT Prophylaxis: Lovenox Written by Jaciel Pratt, acting as scribe for Dr. Goodwin on 07/30/16 at 09:19. The documentation accurately reflects the work performed [id number] by me Dr. Goodwin on 07/30/16 at 09:19. Discharge Planning Disposition pending clinical course. Problem Qualifiers (1) Left lower lobe pneumonia: Qualified Code: J18.1 - Pneumonia of left lower lobe due to infectious organism Jaciel Pratt Jul 30, 2016 09:19 Sandra Goodwin MD Jul 30, 2016 11:21
[2016-07-30] MEDS ORDERED: GADODIAMIDE PF 287 MG/ML 10 ML VIAL (for RAD MRI) IV ONE (09:51)
[2016-07-30] MEDS: NICOTINE 14 MG/24 HR PATCH TD SCH (10:13)
[2016-07-30] MEDS: LEVOFLOXACIN 750 MG TAB PO SCH (10:14)
[2016-07-30] MEDS: SODIUM CHLORIDE 0.9% FLUSH 5 ML FLUSH FLUSH SCH ×2 (10:14→21:00)
[2016-07-30] MEDS: ENOXAPARIN SODIUM 40 MG/0.4 ML SYRINGE SQ SCH (10:14)
[2016-07-30] MEDS: traMADol HCL 50 MG TAB PO PRN (10:15)
[2016-07-30] MEDS: NYSTAT/DIPHENHY/LIDO MOUTHWASH (Adult) 120ML SWISH-SWAL SCH ×4 (10:15→21:00)
--- NOTE | 2016-07-30 11:10 | RADRPT ---
EXAM DATE/TIME: 07/30/2016 09:15 [facility] COMPARISON: No previous studies available for comparison. INDICATIONS: Abscess. Back pain. History of IVDU. CONTRAST: 9 cc Omniscan (gadodiamide) IV MEDICAL HISTORY: None. SURGICAL HISTORY: None. ENCOUNTER: Subsequent ACUITY: 3 day PAIN SCORE: 6/10 LOCATION: Back. TECHNIQUE: Multiplanar multisequence MRI of the lumbar spine was performed with and without contrast. FINDINGS: Severe disc space narrowing at L5-S1 as well as marrow edema surrounding this disc space involving th e lower half of L5 and the upper half of S1. There is also diffuse enhancement of this area of marro w edema. There is also an enhancing anterior epidural collection extending from the superior aspect of L5 to the inferior aspect of S1 predominantly centrally and left paracentral in location. This an terior epidural abscess appears to efface the left anterior lateral aspect of the thecal sac and like ly impinges upon the left S1 nerve root. Clinical correlation is recommended. The findings are cons istent with probable acute discitis at L5-S1 with associated osteomyelitis of the L5 and S1 vertebral bodies and central/left paracentral anterior epidural abscess. The remainder of the lumbar disc spa anoop are normal in height and signal intensity. The remainder of the lumbar vertebral bodies are also normal in height and marrow intensity. T12-L1: There is no significant spinal stenosis, disc bulge or herniation. The bilateral neural foramina are patent. The facet joints and ligaments are normal. L1-2: There is no significant spinal stenosis, disc bulge or herniation. The bilateral neural foramina are patent. The facet joints and ligaments are normal. L2-3: There is mild bilateral foraminal narrowing related to facet joint hypertrophy and ligamentous laxity . No diffuse or focal disc bulge is noted. No spinal stenosis is noted. L3-4: There is minimal bilateral foraminal narrowing secondary to mild facet joint hypertrophy and ligament ous laxity. No focal disc herniation is noted. No spinal stenosis is noted. L4-5: There is no significant spinal stenosis, disc bulge or herniation. Bilateral neural foramina are pat ent. Minimal facet joint hypertrophy is noted bilaterally. L5-S1: Again, there is an anterior central to left paracentral enhancing epidural abscess which resulted in slight effacement of the thecal sac and likely impinges upon the left S1 nerve root. Again diskitis and associated osteomyelitis of the L5 and S1 vertebral bodies is noted at this level also. There is no spinal stenosis. Moderate bilateral foraminal narrowing is noted secondary to diffuse disc bulge and facet joint hypertrophy bilaterally at this level. CONCLUSION: 1. Acute discitis and associated osteomyelitis involving the L5-S1 level and the L5 and S1 vertebra l bodies with moderate-sized anterior epidural abscess extending from the top of L5 to the bottom of S1 centrally and within the left paracentral region. The epidural abscess appears to impinge upon th e left S1 nerve root and effaces the left anterior lateral aspect of the thecal sac at this level. 2. Moderate bilateral foraminal narrowing at L5-S1 secondary to diffuse disc bulge and facet joint h ypertrophy bilaterally. 3. Minimal bilateral foraminal narrowing at L2-3 and L3-4. Vincent Olsen MD on July 30, 2016 at 10:17 Board Certified Radiologist. This report was verified electronically.
[2016-07-30 11:20] VITALS: BP 109/72; PULSE 107; RESP 18; TEMP 96.1; O2SAT 96
[2016-07-30] MEDS ORDERED: PROPOFOL 200 MG/20 ML AMP IV ONE (12:00)
[2016-07-30] MEDS ORDERED: LACTATED RINGER'S 1000 ML INJ 1,000 ML IV ONE (12:00)
[2016-07-30] MEDS ORDERED: PHENYLEPH/NS 1000 MCG/10 ML SYR IV ONE (12:00)
--- NOTE | 2016-07-30 12:57 | EC ---
Study Study Date:07/30/2016 STUDY CONCLUSIONS SUMMARY - Procedure narrative: Transthoracic echocardiography. Image quality was suboptimal. Scanning was performed from the parasternal, apical, and subcostal acoustic windows. - Left ventricle: The cavity size was normal. Wall thickness was normal. Systolic function was normal. The estimated ejection fraction was in the range of 55% to 60%. Wall motion was normal; there were no regional wall motion abnormalities. - Aortic valve: Valve area: 3.02cm^2 (Vmax). If LV function is below 40, please consider prescribing an ACEI or ARB or document rationale for non-use. PROCEDURE DATA STUDY STATUS: Elective. Procedure: Transthoracic echocardiography. Image quality was suboptimal. Scanning was performed from the parasternal, apical, and subcostal acoustic windows. Study completion: The patient tolerated the procedure well. Transthoracic echocardiography. M-mode, complete 2D, complete spectral Doppler, and color Doppler. Height: Height: 65in. Weight: Weight: 98.8lb. Body mass index: BMI: 16.5kg/m^2. Body surface area: BSA: 1.47m^2. Patient status: Inpatient. CARDIAC ANATOMY LEFT VENTRICLE: The cavity size was normal. Wall thickness was normal. Systolic function was normal. The estimated ejection fraction was in the range of 55% to 60%. Wall motion was normal; there were no regional wall motion abnormalities. AORTIC VALVE: Trileaflet; normal thickness leaflets. Doppler: Transvalvular velocity was within the normal range. There was no stenosis. No regurgitation. Valve area: 3.02cm^2 (Vmax). Indexed valve area: 2.05cm^2/m^2 (Vmax). AORTA: Aortic root: The aortic root was normal in size. MITRAL VALVE: Structurally normal valve. Doppler: Transvalvular velocity was within the normal range. There was no evidence for stenosis. Trace regurgitation. LEFT ATRIUM: The atrium was normal in size. RIGHT VENTRICLE: The cavity size was normal. Wall thickness was normal. PULMONIC VALVE: Doppler: Transvalvular velocity was within the normal range. There was no evidence for stenosis. No regurgitation. TRICUSPID VALVE: Structurally normal valve. Doppler: Transvalvular velocity was within the normal range. Trace regurgitation. PULMONARY ARTERY: The main pulmonary artery was normal-sized. Systolic pressure was within the normal range. RIGHT ATRIUM: The atrium was normal in size. PERICARDIUM: There was no pericardial effusion. SYSTEMIC VEINS: Inferior vena cava: The vessel was normal in size. Patient weight: 98.8lb _Ejection fraction:_ 65-75% _Fractional shortening:_ 32% up to 5Kg 5-11.5Kg 11.6-22.9Kg 23-45Kg 45-57Kg Aortic Root 7-13 <17 13-22 17-27 17-27 LA diam 6-13 <23 24-38 33-47 37-40 RVID 10-17 7-15 7-15 7-18 8-17 LVIDd 12-22 <32 24-38 33-47 37-40 LVPW 2-4 3-6 5-7 6-8 7-8 IVS 2-4 3-6 5-7 6-8 7-8 BASIC MEASUREMENTS ADULT NORMAL Left ventricle LV internal dimension, ED, chordal *41.3 mm 43-52 level, PLAX LV internal dimension, ES, chordal 32 mm 23-38 level, PLAX Fractional shortening, chordal level, *23 % >29 PLAX LV posterior wall thickness, ED 6.84 mm IVS/LVPW ratio, ED 1.22 <1.3 Ventricular septum Septal thickness, ED 8.36 mm Aortic valve Leaflet separation 15 mm 15-26 BASIC MEASUREMENTS ADULT NORMAL Aortic valve Leaflet separation 15 mm 15-26 Aorta Root diameter, ED 21 mm 20-37 Left atrium Anterior-posterior dimension, ES 29 mm 19-40 Anterior-posterior dimension index, ES 1.97 cm/m^2 <2.2 LA/aortic root ratio 1.38 DOPPLER MEASUREMENTS ADULT NORMAL Main pulmonary artery Pressure, S 17 mm Hg =30 Aortic valve Peak velocity, S 77.4 cm/s Valve area, Vmax 3.02 cm^2 Valve area index, Vmax 2.05 cm^2/m^2 Mitral valve Peak E-wave velocity 47.9 cm/s Peak A-wave velocity 47.9 cm/s Deceleration time *148 ms 150-230 Peak E/A ratio 1 Tricuspid valve Regurgitant peak velocity 162 cm/s Peak RV-RA gradient, S 10 mm Hg Maximal regurgitant velocity 162 cm/s Systemic veins Estimated CVP 10 mm Hg Right ventricle RV pressure, S 20 mm Hg <30 Pulmonic valve Peak velocity, S 80.1 cm/s LEGEND: Mean values are shown as u=mean value. Asterisk (*) hernandez values outside specified normal range. Prepared and signed by Kevin Lam [id number]
[2016-07-30] MEDS: CYCLOBENZAPRINE HCL 10 MG TAB PO PRN (13:11)
--- NOTE | 2016-07-30 14:34 | HHI.IDPN ---
Subjective Subjective Remarks Notes reviewed Temps ok Back pain better with meds Did some walking with PT and sat up today MRI noted - has discitis, osteo L5-S1 and epidural abscess Antibiotics Levaquin Vanco Oxacillin Lines PIV Past Medical History chronic back pain sciatica migraines 2 pregnancies, and 2 spontaneous vaginal delivery Previous HIV testing negative, last one probably in the last 6-12 months done in the [facility] Allergies: Coded Allergies: Dimetapp (Verified Allergy, Severe, Hives, 11/21/15) Objective . Vital Signs Date Time Temp Pulse Resp B/P Pulse Ox O2 Delivery O2 Flow Rate FiO2 07/30/16 11:20 96.1 107 18 109/72 96 07/30/16 07:06 97.0 88 14 93/67 97 07/30/16 04:07 16 07/30/16 03:16 98.6 88 21 104/73 98 07/29/16 14:32 98.3 108 14 103/64 07/29/16 07/29/16 07/30/16 15:00 23:00 07:00 Intake Total 390 ml 875 ml Balance 390 ml 875 ml Intake Oral 240 ml 500 ml IV Total 150 ml 375 ml # Voids 1 1 . Laboratory Tests Test 07/29/16 07/30/16 04:55 06:25 White Blood Count 7.8 TH/MM3 Red Blood Count 4.71 MIL/MM3 Hemoglobin 13.4 GM/DL Hematocrit 39.2 % Mean Corpuscular Volume 83.2 FL Mean Corpuscular Hemoglobin 28.5 PG Mean Corpuscular Hemoglobin 34.2 % Concent Red Cell Distribution Width 13.8 % Platelet Count 460 TH/MM3 Mean Platelet Volume 7.5 FL Neutrophils (%) (Auto) 69.8 % Lymphocytes (%) (Auto) 18.9 % Monocytes (%) (Auto) 10.5 % Eosinophils (%) (Auto) 0.5 % Basophils (%) (Auto) 0.3 % Neutrophils # (Auto) 5.4 TH/MM3 Lymphocytes # (Auto) 1.5 TH/MM3 Monocytes # (Auto) 0.8 TH/MM3 Eosinophils # (Auto) 0.0 TH/MM3 Basophils # (Auto) 0.0 TH/MM3 CBC Comment DIFF FINAL Differential Comment Erythrocyte Sedimentation Rate 26 mm/hr Laboratory Tests Test 07/29/16 07/30/16 04:55 06:25 Sodium Level 135 MEQ/L Potassium Level 4.0 MEQ/L Chloride Level 101 MEQ/L Carbon Dioxide Level 24.5 MEQ/L Anion Gap 10 MEQ/L Blood Urea Nitrogen 17 MG/DL Creatinine 0.57 MG/DL Estimat Glomerular Filtration 120 ML/MIN Rate Random Glucose 109 MG/DL Calcium Level 9.4 MG/DL Phosphorus Level 3.9 MG/DL Magnesium Level 2.3 MG/DL Vitamin B12 Level 365 PG/ML 25-Hydroxy Vitamin D Total 22.5 ng/ML C-Reactive Protein 5.29 MG/DL Microbiology Date/Time Procedure Status Source Growth 07/27/16 18:15 Urine Culture - Final Complete Urine Clean Catch 50-100,000 CFU/ML MIXED FAUSTINO... 07/29/16 12:12 Aerobic Blood Culture - Preliminary Resulted Blood Peripheral NO GROWTH IN 1 DAY 07/29/16 12:12 Anaerobic Blood Culture - Preliminary Resulted Blood Peripheral NO GROWTH IN 1 DAY 07/29/16 12:21 Aerobic Blood Culture - Preliminary Resulted Blood Peripheral NO GROWTH IN 1 DAY 07/29/16 12:21 Anaerobic Blood Culture - Preliminary Resulted Blood Peripheral NO GROWTH IN 1 DAY 07/29/16 18:40 Gram Stain - Final Resulted Sputum Expectorated Sputum 07/29/16 18:40 Sputum Culture - Preliminary Resulted Sputum Expectorated Sputum IMMATURE GROWTH - REINCUBATE 07/30/16 06:25 Aerobic Blood Culture Received Blood Peripheral Pending 07/30/16 06:25 Anaerobic Blood Culture Received Blood Peripheral Pending Imaging Last Impressions Lumbar Spine MRI 07/30/16 0000 Signed Impressions: Service Date/Time: July 09:15 - CONCLUSION: 1. Acute discitis and associated osteomyelitis involving the L5-S1 level and the L5 and S1 vertebral bodies with moderate-sized anterior epidural abscess extending from the top of L5 to the bottom of S1 centrally and within the left paracentral region. The epidural abscess appears to impinge upon the left S1 nerve root and effaces the left anterior lateral aspect of the thecal sac at this level. 2. Moderate bilateral foraminal narrowing at L5-S1 secondary to diffuse disc bulge and facet joint hypertrophy bilaterally. 3. Minimal bilateral foraminal narrowing at L2-3 and L3-4. Vincent Olsen MD Lumbar Spine X-Ray 07/28/16 0000 Signed Impressions: Service Date/Time: Thursday, July 28, 2016 18:52 - CONCLUSION: 1. No acute findings. Degenerative change as above. Ovidio Mac MD Abdomen/Pelvis CT 07/27/16 1623 Signed Impressions: Service Date/Time: Wednesday, July 27, 2016 19:04 - CONCLUSION: 1. Left lower lobe consolidation medially most characteristic of pneumonia. Right lung is clear. 2. Moderate constipation with ileus. 3. No renal calculi or evidence for obstructive uropathy. 4. Bladder mildly distended. No bladder calculi. Ovidio Mac MD Chest X-Ray 07/27/16 0000 Signed Impressions: Service Date/Time: Wednesday, July 27, 2016 20:57 - CONCLUSION: No acute disease. Ovidio Mac MD Physical Exam GENERAL: awake and alert, not in respiratory distress. Looks better than yesterday SKIN: Warm and moist, no generalized rash, no ecchymosis or embolic lesions. She has some track hernandez in her upper extremities. HEENT: Pale conjunctivae, no petechia or hemorrhage. No scleral icterus. No injection or drainage. Moist oral mucosa. Throat without erythema or exudate. NECK: Trachea midline. No JVD , Has some cervical lymphadenopathy. Supple, nontender, no meningeal signs. CARDIOVASCULAR: Regular rate and rhythm without murmurs, gallops, or rubs. RESPIRATORY: Clear to auscultation. Breath sounds equal bilaterally. No wheezes , rales, or rhonchi. GASTROINTESTINAL: Abdomen soft, non-tender, nondistended. No hepato-splenomegaly , or palpable masses. Bowel sounds are present and normoactive. No guarding. MUSCULOSKELETAL: Extremities without clubbing, cyanosis, or edema. No joint tenderness, effusion, or edema noted. No calf tenderness. Negative Homans sign bilaterally. NEUROLOGICAL: Awake and alert. Cranial nerves II through XII intact. Motor and sensory grossly within normal limits. Five out of 5 muscle strength in all muscle groups. Normal speech. BACK: No CVA tenderness, no spine point tenderness LINE: PIV with no evidence of infection Assessment & Plan Remarks IMPRESSION Sepsis on presentation, has Coag Neg Staph(+) BC, patient with IVDU and back pain - concern is back infection, discitis, osteo - No endocarditis on TTE MRI with L5-S1 discitis, osteo and epidural abscess (+) UA, no significant symptoms Known active IVDU RECOMMENDATION Follow BC Continue vancomycin Also on Levaquin for questionable pneumonia - Will need to repeat chest x-ray in a few days Stop oxacillin Get neurosurgery consult today Monitor progress Explained plan to patient D/W Tamika Judge MD Jul 30, 2016 14:33
--- NOTE | 2016-07-30 15:53 | PD.CONS ---
History of Present Illness Service Neurosurgery Consult Requested By Sandra Goodwin MD Reason for Consult L5-S1 discitis, osteomyelitis, epidural abscess Primary Care Physician No Primary Care Physician Diagnoses: History of Present Illness Review 6-year-old female states that on July 18 she was working in [employer], and that evening developed onset of pain in her low back. The next day the pain became much more severe and began radiating to the left greater than right lower extremity. She states that for most of the past week, she was in bed, unable to ambulate due to the severe pain. She has not noted any bowel or bladder dysfunction. No dysuria or hematuria. She has a chronic cough which she relates to smoking, but no increased productive cough recently. She denies fevers or chills. She remained in bed up until 3 days ago when she presented to the emergency room. She states that she thought that she may have had a flareup of back pain and sciatica, which she has previously had in the past couple of years. Since admission, blood cultures have revealed coagulase negative staph., with mixed lyndsay in urine culture. Leg and low back pain remained quite severe with attempts to ambulate and mobilize out of bed. She complains of intermittent spasm in the lower extremities. No loss of bowel or bladder control. No diarrhea or constipation. Review of Systems Constitutional: DENIES: Fever, Dizziness Eyes: DENIES: Blurred vision, Double Vision Ears, nose, mouth, throat: DENIES: Tinnitus, Hearing loss, Vertigo Respiratory: COMPLAINS OF: Cough, DENIES: Sputum production, Shortness of breath Cardiovascular: DENIES: Chest pain, Palpitations Gastrointestinal: COMPLAINS OF: Abdominal pain, DENIES: Constipation, Diarrhea , Nausea, Vomiting Musculoskeletal: COMPLAINS OF: Joint pain, Muscle aches, Back pain Hematologic/lymphatic: DENIES: Bruising Neurologic: COMPLAINS OF: Abnormal gait, DENIES: Paresthesias, Speech Problems Psychiatric: COMPLAINS OF: Anxiety, DENIES: Confusion Past Family Social History Allergies: Coded Allergies: Dimetapp (Verified Allergy, Severe, Hives, 11/21/15) Past Medical History No cardiac, pulmonary, gastrointestinal disease. No diabetes or hypertension. Past Surgical History No major surgeries reported. Reported Medications No prescription medications Family History Positive diabetes. Hypertension in her father Social History She has smoked 1 pack cigarettes a day for many years. Trying to decrease, now smoking approximately one half pack cigarettes a day. History of IV drug abuse Physical Exam Vital Signs Vital Signs Date Time Temp Pulse Resp B/P Pulse Ox O2 Delivery O2 Flow Rate FiO2 07/30/16 11:20 96.1 107 18 109/72 96 07/30/16 07:06 97.0 88 14 93/67 97 07/30/16 04:07 16 07/30/16 03:16 98.6 88 21 104/73 98 Physical Exam SKIN: No rashes, ecchymoses or lesions. Gen.: Thin, otherwise normal well-developed lady, appears moderately painful during the examination HEAD: No lacerations or contusions. Normocephalic EYES: Sclerae are clear and nonicteric. No periorbital edema or ecchymosis ENT: No CSF otorrhea or rhinorrhea. No facial fracture or deformity NECK: Supple, nontender, no meningeal signs. CARDIOVASCULAR: Regular rate and rhythm without murmurs, gallops, or rubs. RESPIRATORY: Clear to auscultation. Breath sounds equal bilaterally. No wheezes , rales, or rhonchi. GASTROINTESTINAL: Abdomen soft, non-tender, nondistended. No hepato-splenomegaly , or palpable masses. No guarding. Normal bowel sounds MUSCULOSKELETAL: Extremities without cyanosis, or edema. No joint tenderness, effusion, or edema noted. No calf tenderness. Posterior tibial pulse 2+ bilateral Significant tenderness over the lower lumbar paraspinous musculature. No significant Tenderness or hip pain with range of motion. NEUROLOGICAL: Awake and alert Oriented X 3 Speech is clear Conversant and appropriate Follow simple commands well Answers questions appropriately Reasonable judgment and insight Recent and remote memory are intact Appears somewhat anxious Pupils are equal and reactive to accommodation. Extra-ocular movements, visual villar to confrontation, facial sensorimotor, tongue, palate, sternocleidomastoid testing, hearing to finger rub testing, and bilateral shoulder shrug are all intact. Sensation is intact to light touch in all extremities Strength normal major flexion and extension groups all extremities Mary's absent bilaterally No ankle clonus Plantar responses absent bilateral Fine motor movements intact upper extremities Laboratory Current Medications Medications (Trade) Dose Ordered Sig/Mendez Route Start Time Stop Time Status Last Admin (NS Flush) 2 ml UNSCH PRN FLUSH 07/27/16 23:45 (NS Flush) 2 ml BID FLUSH 07/28/16 09:00 07/30/16 10:14 (Narcan Inj) 0.4 mg UNSCH PRN IV 07/27/16 23:45 (Pill Splitter) 1 ea UNSCH PRN OTHER 07/28/16 08:15 (Magic Mouthwash Adult Liq) 5 ml QID SWISH-SWAL 07/28/16 18:00 07/30/16 13:11 (Flexeril) 10 mg Q8H PRN PO 07/28/16 16:00 07/30/16 13:11 (Ultram) 50 mg Q4H PRN PO 07/28/16 17:30 07/30/16 10:15 (Ultram) 100 mg Q4H PRN PO 07/28/16 17:30 Guaifenesin 600 mg 600 mg BID PO 07/29/16 11:00 07/30/16 09:00 Pharmacy Profile Note 0 ml @ 0 mls/hr UNSCH OTHER 07/29/16 11:00 (Vancomycin Inj/ NS 250 ml Inj) 250 ml @ 250 mls/hr Q12H IV 07/29/16 12:00 07/30/16 00:44 Miscellaneous Information SPECIFIC LAB TO BE DRAWN:VANCOMYCIN TROUGH DATE TO... ONCE ONCE XX 07/30/16 23:45 07/30/16 23:46 (Levaquin) 750 mg DAILY@11 PO 07/30/16 11:00 07/30/16 10:14 (Habitrol 14 Mg Patch.24 Hr) 1 patch DAILY TD 07/29/16 17:45 07/30/16 10:13 Miscellaneous Information 1 DAILY TD 07/30/16 09:00 07/30/16 09:00 Laboratory Tests Test 07/30/16 06:25 Erythrocyte Sedimentation Rate 26 mm/hr C-Reactive Protein 5.29 MG/DL Hepatitis A IgM Antibody NEGATIVE Hepatitis B Surface Antigen NEGATIVE Hepatitis B Core IgM Antibody NEGATIVE Hepatitis C Antibody REACTIVE HIV (1&2) Antibody NEGATIVE Laboratory Tests Test 07/30/16 06:25 Erythrocyte Sedimentation Rate 26 C-Reactive Protein 5.29 Hepatitis A IgM Antibody NEGATIVE Hepatitis B Surface Antigen NEGATIVE Hepatitis B Core IgM Antibody NEGATIVE Hepatitis C Antibody REACTIVE HIV (1&2) Antibody NEGATIVE Date/Time Procedure Status Source Growth 07/30/16 06:25 Aerobic Blood Culture Received Blood Peripheral Pending 07/30/16 06:25 Anaerobic Blood Culture Received Blood Peripheral Pending 07/29/16 18:40 Gram Stain - Final Resulted Sputum Expectorated Sputum 07/29/16 18:40 Sputum Culture - Preliminary Resulted Sputum Expectorated Sputum IMMATURE GROWTH - REINCUBATE 07/29/16 12:21 Aerobic Blood Culture - Preliminary Resulted Blood Peripheral NO GROWTH IN 1 DAY 07/29/16 12:21 Anaerobic Blood Culture - Preliminary Resulted Blood Peripheral NO GROWTH IN 1 DAY 07/27/16 18:15 Urine Culture - Final Complete Urine Clean Catch 50-100,000 CFU/ML MIXED LYNDSAY... Result Diagram: 07/29/16 0455 07/29/16 0455 Imaging 07/30/16 MRI Lumbar spine images reviewed. Lumbar Spine MRI 07/30/16 0000 Signed Impressions: Service Date/Time: July 09:15 - CONCLUSION: 1. Acute discitis and associated osteomyelitis involving the L5-S1 level and the L5 and S1 vertebral bodies with moderate-sized anterior epidural abscess extending from the top of L5 to the bottom of S1 centrally and within the left paracentral region. The epidural abscess appears to impinge upon the left S1 nerve root and effaces the left anterior lateral aspect of the thecal sac at this level. 2. Moderate bilateral foraminal narrowing at L5-S1 secondary to diffuse disc bulge and facet joint hypertrophy bilaterally. 3. Minimal bilateral foraminal narrowing at L2-3 and L3-4. Vincent Olsen MD Lumbar Spine X-Ray 07/28/16 0000 Signed Impressions: Service Date/Time: Thursday, July 28, 2016 18:52 - CONCLUSION: 1. No acute findings. Degenerative change as above. Ovidio Mac MD Abdomen/Pelvis CT 07/27/16 1623 Signed Impressions: Service Date/Time: Wednesday, July 27, 2016 19:04 - CONCLUSION: 1. Left lower lobe consolidation medially most characteristic of pneumonia. Right lung is clear. 2. Moderate constipation with ileus. 3. No renal calculi or evidence for obstructive uropathy. 4. Bladder mildly distended. No bladder calculi. Ovidio Mac MD Chest X-Ray 07/27/16 0000 Signed Impressions: Service Date/Time: Wednesday, July 27, 2016 20:57 - CONCLUSION: No acute disease. Ovidio Mac MD Assessment and Plan Assessment and Plan Impression: L5 - S1 discitis,osteomyelitis, epidural abscess recommendations: The MRI images were reviewed with the patient. Treatment options and discussed in detail including observation versus surgical intervention. Although she does not have significant focal deficits on lower extremity neurologic exam, due to the severity of her pain and the significant size of the epidural abscess, surgical intervention is recommended. The procedure, risks, possible complications, anticipated recovery time, and prognosis of open fully discussed. All questions answered. She appears to understand all the above. She wishes to proceed with surgical intervention which is scheduled for today. Plan L5 S1 laminectomy, evacuation abscess Patient has been on lovenox and toradol, which may increase risk of post operative hematoma. Hamilton Baer MD Jul 30, 2016 15:53
[2016-07-30 16:24] VITALS: BP 119/71; PULSE 96; RESP 18; TEMP 96; O2SAT 98
[2016-07-30] MEDS ORDERED: KETOROLAC TROMETHAMINE 30 MG/ML (IVP) VIAL IV PUSH PRN (17:45)
[2016-07-30] MEDS: ACETAMINOPHEN/HYDROcodone 325 MG/5 MG TAB PO PRN (18:00)
[2016-07-30] MEDS ORDERED: GENTAMICIN SULFATE 80 MG/2 ML VIAL ONE (20:00)
[2016-07-30] MEDS ORDERED: THROMBIN (TOPICAL) 5,000 UNIT VIAL ONE (20:00)
[2016-07-30] MEDS ORDERED: LIDOCAINE 1%/EPINEPHrine 1:100,000 SOLN 30 ML VIAL ONE (20:00)
[2016-07-30] MEDS ORDERED: GELFOAM SIZE 100 ONE (20:00)
[2016-07-30] MEDS ORDERED: ceFAZolin INJ 1,000 MG VIAL ONE (20:11)
[2016-07-30] MEDS ORDERED: fentaNYL CITRATE 250 MCG/5 ML AMP ONE (22:44)
[2016-07-30] MEDS ORDERED: MIDAZOLAM HCL 2 MG/2 ML VIAL ONE (22:44)
--- NOTE | 2016-07-30 22:52 | RADRPT ---
EXAM DATE/TIME: 07/30/2016 21:10 [facility] COMPARISON: No previous studies available for comparison. INDICATIONS : Laminectomy L5-S1. MEDICAL HISTORY : Seizures. SURGICAL HISTORY : None. ENCOUNTER: Initial ACUITY: 1 day PAIN SCORE: Non-responsive. LOCATION: Lumbar Spine. FINDINGS: A single lateral view of the lumbar spine was performed. There is normal alignment of the vertebral bodies without evidence of subluxation. Vertebral body height and disc space height is maintained. CONCLUSION: 1. Surgical instruments overlie posterior elements at lumbosacral junction. Ovidio Mac MD on July 30, 2016 at 22:50 Board Certified Radiologist. This report was verified electronically.
[2016-07-30] MEDS ORDERED: *morphine SULFATE 8 MG/ML PERIprocedure ONLY ONE (22:59)
--- NOTE | 2016-07-30 23:26 | PD.OP ---
Operative Report Date of Surgery: Jul 30, 2016 Preoperative Diagnosis: (1) Discitis of lumbosacral region (2) Abscess in epidural space of lumbar spine L5-S1 discitis, osteomyelitis L5-S1 epidural abscess Postoperative Diagnosis: (1) Discitis of lumbosacral region (2) Abscess in epidural space of lumbar spine L5-S1 discitis, osteomyelitis L5-S1 epidural abscess Procedure: Left L5 semi-hemilaminectomy, evacuation epidural abscess, resection degenerative herniated disc Anesthesia: Gen. Surgeon: Hamilton Baer Advertising Statistical Clerk(s): Catalino Dubon Operation and Findings: Findings: Small loculated area of epidural abscess accompanied by necrotic appearing debris/herniated disc material primarily L5-S1 ventral midline. Procedure in detail: The patient was brought into the operating room and general endotracheal anesthesia induced without difficulty. Knee-high sequential compression devices were placed. Lines were established by Anesthesia The patient was placed in prone position on the concentric Jaylen table with the side bolsters and all extremities appropriately padded Appropriate time-out procedure was performed with all personal present and in agreement The lumbar region was shaved with clippers and sterilely prepped and draped. 1% Xylocaine with epinephrine was used for local infiltration over the incision site which was made just to the left of midline at the L5-S1 level. The incision was carried sharply down to the lumbodorsal fascia which was incised just adjacent to the spinous processes. Castro elevator was used for subperiosteal elevation of paraspinous musculature and fascia away from the lamina and spinous process of L5 and S1 on the left side The deep self-retaining retractor was placed. The appropriate level was verified with intraoperative C-arm. The microscope was moved into place and used for the remainder of the procedure including the closure. the 3 mm Kerrison rongeur was used to remove the inferior aspect of the L5 lamina along with a small amount of the medial facet sufficient to gain access to the lateral recess without significant nerve root or thecal sac retraction. The ligamentum flavum was elevated away from the thecal sac and resected with the Kerrison rongeur which was also used to further remove ligamentum along the lateral recess. The exiting nerve left S1 root was traced down to the medial aspect of the left S1 pedicle and traced back to the exit from the thecal sac. The thecal sac and exiting nerve root were then retracted gently medially revealing the underlying disc and annulus. The patient was noted to have significant disruption of the disc with essentially total loss of intervertebral disc. On amount of necrotic-appearing disc and inflammatory debris was noted ventral to the thecal sac. This was further visualized by next working medial to the exiting left S1 nerve root with the [place] 4 dissector Any loose pieces of disc material in the intervertebral disc space were carefully removed. The neural structures appeared well decompressed at the end of the procedure. Bleeding was carefully controlled with bone wax for the bone bleeding and bipolar forceps. There is no significant bleeding time of closure. No cerebrospinal fluid leakage was encountered. The closure was performed with 0 Vicryl interrupted for the deep and superficial fascia, with 3-0 Vicryl interrupted for the subcutaneous closure, and 4-0 Vicryl running for the subcuticular closure. The dressing of sterile Mastisol, Steri-Strips, and Primapore dressing was applied. The patient was taken to recovery room in stable condition. All counts were correct at the end of the case. No specimen was sent to pathology. The culturette swab of the epidural abscess and a specimen of the necrotic- appearing disc material were both sent to microbiology for fungal and bacterial cultures Estimated blood loss was 25 cc . Hamilton Baer MD Jul 30, 2016 23:26
[2016-07-30] MEDS ORDERED: DO NOT ADM ANY ANTICOAGULANT DRUGS XX PRN (23:45)
[2016-07-30] MEDS ORDERED: PHARMACY ORDERED LAB XX ONE (23:45)
[2016-07-31] MEDS: VANCOMYCIN 1,000 MG/NS 250 ML IV SCH ×6 (00:25→11:45)
[2016-07-31] MEDS: D5-1/2 NS + KCL 20 MEQ INJ 1,000 ML IV SCH ×2 (00:28→17:04)
[2016-07-31] MEDS: MORPHINE SULFATE 4 MG/ML INJ IV PUSH PRN ×5 (00:46→19:54)
[2016-07-31] MEDS: CYCLOBENZAPRINE HCL 10 MG TAB PO PRN ×3 (02:22→22:26)
[2016-07-31 08:00] VITALS: BP 114/76; PULSE 84; RESP 17; TEMP 98.5; O2SAT 97
[2016-07-31] MEDS: SODIUM CHLORIDE 0.9% FLUSH 5 ML FLUSH FLUSH SCH ×2 (09:00→22:27)
[2016-07-31] MEDS: NICOTINE 14 MG/24 HR PATCH TD SCH (09:00)
[2016-07-31] MEDS: NYSTAT/DIPHENHY/LIDO MOUTHWASH (Adult) 120ML SWISH-SWAL SCH ×4 (09:00→22:27)
[2016-07-31] MEDS: REMOVE OLD PATCH TD SCH (09:00)
[2016-07-31] MEDS: guaiFENesin E.R. 600 MG TAB PO SCH ×2 (09:00→22:25)
[2016-07-31] MEDS ORDERED: INSULIN NovoLIN REGULAR SUPPLEMENTAL SCALE ONE (09:32)
--- NOTE | 2016-07-31 09:38 | HHI.IDPN ---
Subjective Subjective Remarks Notes reviewed D/W RN Patient seen in [facility] Went to surgery late last night had semilaminectomy, gabe of epidural abscess and resention of degenerated herniated disc G/S and C/S negative so far Temps ok Back pain better Antibiotics Levaquin Vanco Lines PIV Past Medical History chronic back pain sciatica migraines 2 pregnancies, and 2 spontaneous vaginal delivery Previous HIV testing negative, last one probably in the last 6-12 months done in the [facility] Allergies: Coded Allergies: Dimetapp (Verified Allergy, Severe, Hives, 11/21/15) Objective . Vital Signs Date Time Temp Pulse Resp B/P Pulse Ox O2 Delivery O2 Flow Rate FiO2 07/31/16 08:00 98.5 84 17 114/76 97 07/31/16 06:00 80 12 128/66 97 Room Air 07/31/16 04:00 98.4 79 16 109/79 98 Room Air 125/65 07/31/16 02:00 98.1 90 16 135/83 98 Room Air 07/31/16 01:00 83 12 132/71 97 Room Air 07/31/16 00:00 91 10 117/81 98 Room Air 136/73 07/30/16 23:30 98.1 97 9 114/85 97 Room Air 125/72 07/30/16 23:15 93 10 117/79 96 Room Air 115/65 07/30/16 23:00 97 12 128/91 99 Room Air 121/69 07/30/16 22:45 103 16 130/89 99 Simple Mask 10 135/69 07/30/16 22:36 97.7 119 15 137/89 99 Simple Mask 10 139/80 07/30/16 19:08 18 07/30/16 16:24 96.0 96 18 119/71 98 07/30/16 11:20 96.1 107 18 109/72 96 07/30/16 07/30/16 07/31/16 15:00 23:00 07:00 Intake Total 1200 ml 1710 ml 1118 ml Output Total 25 ml 1700 ml Balance 1200 ml 1685 ml -582 ml Intake Oral 1000 ml 10 ml 600 ml IV Total 200 ml 300 ml 518 ml Other 1400 ml Output Urine Total 0 ml 1700 ml Estimated Blood Loss 25 ml Other 0 ml # Voids 2 . Laboratory Tests Test 07/30/16 06:25 Erythrocyte Sedimentation Rate 26 mm/hr Laboratory Tests Test 07/30/16 07/31/16 06:25 06:55 C-Reactive Protein 5.29 MG/DL Creatinine 0.47 MG/DL Estimat Glomerular Filtration 150 ML/MIN Rate Microbiology Date/Time Procedure Status Source Growth 07/29/16 12:12 Aerobic Blood Culture - Preliminary Resulted Blood Peripheral NO GROWTH IN 1 DAY 07/29/16 12:12 Anaerobic Blood Culture - Preliminary Resulted Blood Peripheral NO GROWTH IN 1 DAY 07/29/16 12:21 Aerobic Blood Culture - Preliminary Resulted Blood Peripheral NO GROWTH IN 1 DAY 07/29/16 12:21 Anaerobic Blood Culture - Preliminary Resulted Blood Peripheral NO GROWTH IN 1 DAY 07/29/16 18:40 Gram Stain - Final Complete Sputum Expectorated Sputum 07/29/16 18:40 Sputum Culture - Final Complete Sputum Expectorated Sputum HEAVY GROWTH NORMAL RESPIRATORY FAUSTINO 07/30/16 06:25 Aerobic Blood Culture Received Blood Peripheral Pending 07/30/16 06:25 Anaerobic Blood Culture Received Blood Peripheral Pending 07/30/16 21:40 Gram Stain Received Abscess Back Pending 07/30/16 21:40 Wound Culture Received Abscess Back Pending 07/30/16 21:40 Acid Fast Stain Received Abscess Back Pending 07/30/16 21:40 Mycobacterial Culture Received Abscess Back Pending 07/30/16 21:40 Fungal Smear Received Abscess Back Pending 07/30/16 21:40 Fungal Culture Received Abscess Back Pending 07/30/16 21:50 Gram Stain Received Abscess Back Pending 07/30/16 21:50 Wound Culture Received Abscess Back Pending 07/30/16 21:50 Acid Fast Stain Received Abscess Back Pending 07/30/16 21:50 Mycobacterial Culture Received Abscess Back Pending 07/30/16 21:50 Fungal Smear Received Abscess Back Pending 07/30/16 21:50 Fungal Culture Received Abscess Back Pending 07/31/16 06:55 Aerobic Blood Culture Received Blood Peripheral Pending 07/31/16 06:55 Anaerobic Blood Culture Received Blood Peripheral Pending Imaging Last Impressions Lumbar Spine MRI 07/30/16 0000 Signed Impressions: Service Date/Time: July 09:15 - CONCLUSION: 1. Acute discitis and associated osteomyelitis involving the L5-S1 level and the L5 and S1 vertebral bodies with moderate-sized anterior epidural abscess extending from the top of L5 to the bottom of S1 centrally and within the left paracentral region. The epidural abscess appears to impinge upon the left S1 nerve root and effaces the left anterior lateral aspect of the thecal sac at this level. 2. Moderate bilateral foraminal narrowing at L5-S1 secondary to diffuse disc bulge and facet joint hypertrophy bilaterally. 3. Minimal bilateral foraminal narrowing at L2-3 and L3-4. Vincent Olsen MD Lumbar Spine X-Ray 07/28/16 0000 Signed Impressions: Service Date/Time: Thursday, July 28, 2016 18:52 - CONCLUSION: 1. No acute findings. Degenerative change as above. Ovidio Mac MD Abdomen/Pelvis CT 07/27/16 1623 Signed Impressions: Service Date/Time: Wednesday, July 27, 2016 19:04 - CONCLUSION: 1. Left lower lobe consolidation medially most characteristic of pneumonia. Right lung is clear. 2. Moderate constipation with ileus. 3. No renal calculi or evidence for obstructive uropathy. 4. Bladder mildly distended. No bladder calculi. Ovidio Mac MD Chest X-Ray 07/27/16 0000 Signed Impressions: Service Date/Time: Wednesday, July 27, 2016 20:57 - CONCLUSION: No acute disease. Ovidio Mac MD Physical Exam GENERAL: awake and alert, not in respiratory distress. SKIN: Warm and moist, no generalized rash. No embolic lesions. She has some track hernandez in her upper extremities. HEENT: Pale conjunctivae, no petechia or hemorrhage. No scleral icterus. Moist oral mucosa. Throat without erythema or exudate. NECK: Trachea midline. No JVD , Has some cervical lymphadenopathy. Supple, nontender, no meningeal signs. CARDIOVASCULAR: Regular rate and rhythm without murmurs, gallops, or rubs. RESPIRATORY: Clear to auscultation. Breath sounds equal bilaterally. No wheezes , rales, or rhonchi. GASTROINTESTINAL: Abdomen soft, non-tender, nondistended. No hepato-splenomegaly , or palpable masses. Bowel sounds are present and normoactive. No guarding. MUSCULOSKELETAL: Extremities without clubbing, cyanosis, or edema. No joint tenderness, effusion, or edema noted. No calf tenderness. Negative Homans sign bilaterally. NEUROLOGICAL: Awake and alert. Cranial nerves II through XII intact. Motor and sensory grossly within normal limits. Five out of 5 muscle strength in all muscle groups. Normal speech. BACK: Dressing in place from OR last night LINE: PIV with no evidence of infection Assessment & Plan Remarks IMPRESSION Sepsis on presentation, has Coag Neg Staph(+) BC, patient with IVDU and back pain - concern is back infection, discitis, osteo - No endocarditis on TTE MRI with L5-S1 discitis, osteo and epidural abscess - S/P surgery (+) UA, no significant symptoms Known active IVDU RECOMMENDATION Follow BC Continue vancomycin Also on Levaquin for questionable pneumonia - Will need to repeat chest x-ray in a few days Monitor progress Will need a long course of IV Abx Explained plan to patient D/W RN Will have hospitalist call ID coverage if there is any question regarding the C/ S result Tamika Leiva MD Jul 31, 2016 09:37
[2016-07-31] MEDS: LEVOFLOXACIN 750 MG TAB PO SCH (10:35)
[2016-07-31 11:00] VITALS: BP 93/50; PULSE 94; RESP 17; TEMP 98.1; O2SAT 99
[2016-07-31] MEDS: ACETAMINOPHEN/HYDROcodone 325 MG/5 MG TAB PO PRN ×3 (12:49→22:26)
[2016-07-31 13:45] VITALS: BP 109/66; PULSE 89; RESP 16; TEMP 97.7; O2SAT 98
[2016-07-31 14:05] VITALS: BP 109/66; PULSE 89; RESP 16; TEMP 97.7; O2SAT 98
[2016-07-31] MEDS ORDERED: DO NOT ADM ANY ANTICOAGULANT DRUGS XX PRN (14:30)
--- NOTE | 2016-07-31 15:19 | HHI.PR ---
Subjective Remarks Patient feels weak. Back pain is controlled by meds. Says surgery went well. No n/v/d/c. Says she has pain however is controlled by meds. No n/v/d/c. No fevers overnight. Objective Vitals Vital Signs Date Time Temp Pulse Resp B/P Pulse Ox O2 Delivery O2 Flow Rate FiO2 07/31/16 13:45 97.7 89 16 109/66 98 07/31/16 11:00 98.1 94 17 93/50 99 07/31/16 08:00 98.5 84 17 114/76 97 07/31/16 06:00 80 12 128/66 97 Room Air 07/31/16 04:00 98.4 79 16 109/79 98 Room Air 125/65 07/31/16 02:00 98.1 90 16 135/83 98 Room Air 07/31/16 01:00 83 12 132/71 97 Room Air 07/31/16 00:00 91 10 117/81 98 Room Air 136/73 07/30/16 23:30 98.1 97 9 114/85 97 Room Air 125/72 07/30/16 23:15 93 10 117/79 96 Room Air 115/65 07/30/16 23:00 97 12 128/91 99 Room Air 121/69 07/30/16 22:45 103 16 130/89 99 Simple Mask 10 135/69 07/30/16 22:36 97.7 119 15 137/89 99 Simple Mask 10 139/80 07/30/16 19:08 18 07/30/16 16:24 96.0 96 18 119/71 98 I/O 07/30/16 07/30/16 07/30/16 07/31/16 07/31/16 07/31/16 07:00 15:00 23:00 07:00 15:00 23:00 Intake Total 1200 ml 1710 ml 1118 ml 200 ml Output Total 25 ml 1700 ml 1850 ml Balance 1200 ml 1685 ml -582 ml -1650 ml Intake Oral 1000 ml 10 ml 600 ml 200 ml IV Total 200 ml 300 ml 518 ml Other 1400 ml Output Urine Total 0 ml 1700 ml 1850 ml Estimated Blood Loss 25 ml Other 0 ml # Voids 2 Result Diagram: 07/29/16 0455 07/31/16 0655 Imaging Last Impressions Lumbar Spine X-Ray 2/9/17 0000 Signed Impressions: Service Date/Time: July 21:10 - CONCLUSION: 1. Surgical instruments overlie posterior elements at lumbosacral junction. Ovidio Mac MD Lumbar Spine MRI 07/30/16 0000 Signed Impressions: Service Date/Time: July 09:15 - CONCLUSION: 1. Acute discitis and associated osteomyelitis involving the L5-S1 level and the L5 and S1 vertebral bodies with moderate-sized anterior epidural abscess extending from the top of L5 to the bottom of S1 centrally and within the left paracentral region. The epidural abscess appears to impinge upon the left S1 nerve root and effaces the left anterior lateral aspect of the thecal sac at this level. 2. Moderate bilateral foraminal narrowing at L5-S1 secondary to diffuse disc bulge and facet joint hypertrophy bilaterally. 3. Minimal bilateral foraminal narrowing at L2-3 and L3-4. Vincent Olsen MD Abdomen/Pelvis CT 07/27/16 1623 Signed Impressions: Service Date/Time: Wednesday, July 27, 2016 19:04 - CONCLUSION: 1. Left lower lobe consolidation medially most characteristic of pneumonia. Right lung is clear. 2. Moderate constipation with ileus. 3. No renal calculi or evidence for obstructive uropathy. 4. Bladder mildly distended. No bladder calculi. Ovidio Mac MD Chest X-Ray 07/27/16 0000 Signed Impressions: Service Date/Time: Wednesday, July 27, 2016 20:57 - CONCLUSION: No acute disease. Ovidio Mac MD Objective Remarks GENERAL: Well-developed well-nourished. In no acute distress. SKIN: Warm and dry. No lesions noted. HEENT: Normocephalic. Pupils equal and round. Mucous membranes pink and moist. CARDIOVASCULAR: Regular rate and rhythm. No murmur appreciated. RESPIRATORY: No accessory muscle use. Clear to auscultation. Breath sounds equal bilaterally. GASTROINTESTINAL: Abdomen soft, non-tender, nondistended. Bowel sounds x4. MUSCULOSKELETAL: Back with 2 dressings c/d/i on lower back after surgery. No obvious deformities. No clubbing or cyanosis. No edema. NEUROLOGICAL: Awake and alert. No focal neurological deficits. Moves upper and lower extremities spontaneously. Normal speech. PSYCHIATRIC: Appropriate mood and affect; insight and judgment normal. A/P Problem List: (1) Bacteremia ICD Code: R78.81 Status: Acute (2) Left lower lobe pneumonia ICD Code: J18.1 Status: Acute (3) IVDU (intravenous drug user) ICD Code: F19.90 Status: Acute Assessment and Plan 36-year-old female with history of IVDU, chronic back pain, sciatica, migraines , presents with a one-week history of back pain. Bacteremia: 2/4 blood cultures with gram positive cocci. Sepsis on presentation, has Coag Neg Staph(+) BC, patient with IVDU and back pain Repeat blood cultures x2 NTD. ID consulted seen by Dr Leiva . Continue IV Vanco. ESR/CRP elevated. Ordered lumbar spine MRI r/out discitis/ osteomyelitis. JAMIE no endocarditis. MRI with L5-S1 discitis, osteo and epidural abscess- S/P surgery 07/30/16 semilaminectomy, eval of epidural abscess and retention of degenerated herniated disc G/S and C/S negative so far Will need a long course of IV Abx Currently on vancomycin IV and also levaquin for PNA Pain meds, flexeril for back pain Community Acquired LLL Pneumonia: Consolidation seen on CT abd. WBC 9.6K upon arrival, afebrile, does not meet sepsis criteria. Continue on Levaquin. Sputum culture pending. ID recommends repeat CXR in a few days. Abnormal UA: UA with possible UTI, given IV Rocephin, however urine culture with 50-100K mixed lyndsay, likely contaminants. D/c IV Rocephin. On levaquin for pneumonia as above. Oral Candidiasis: Continue Magic Mouthwash 5ml SS qid. IVDU: counseled on cessation. Last use 8days prior to admission. Does not appear to be in withdrawal. Blood cultures positive as above. Tobacco Use: counseled on cessation, nicotine patch prn. PT consult. DVT Prophylaxis: Lovenox Discussed with the patient, nurse, ID specialist Dr Leiva Problem Qualifiers (1) Left lower lobe pneumonia: Qualified Code: J18.1 - Pneumonia of left lower lobe due to infectious organism Sandra Goodwin MD Jul 31, 2016 15:18
[2016-07-31 18:27] VITALS: O2SAT 96
[2016-07-31 21:03] VITALS: BP 102/60; PULSE 96; RESP 18; TEMP 97.3; O2SAT 98
[2016-08-01] VITALS (9 sets, daily range): BP systolic 85–126; BP diastolic 47–78; PULSE 80–111; RESP 18–22; TEMP 96.9–98.8; O2SAT 98–100
[2016-08-01] MEDS: VANCOMYCIN 1,000 MG/NS 250 ML IV SCH ×6 (00:09→21:18)
[2016-08-01] MEDS: MORPHINE SULFATE 4 MG/ML INJ IV PUSH PRN ×5 (00:10→22:37)
[2016-08-01] MEDS: ACETAMINOPHEN/HYDROcodone 325 MG/5 MG TAB PO PRN ×4 (04:10→21:18)
[2016-08-01] MEDS: CYCLOBENZAPRINE HCL 10 MG TAB PO PRN ×2 (07:37→21:18)
[2016-08-01] MEDS: NYSTAT/DIPHENHY/LIDO MOUTHWASH (Adult) 120ML SWISH-SWAL SCH ×4 (09:00→21:00)
[2016-08-01] MEDS: NICOTINE 14 MG/24 HR PATCH TD SCH (09:00)
[2016-08-01] MEDS: REMOVE OLD PATCH TD SCH (09:00)
[2016-08-01] MEDS: SODIUM CHLORIDE 0.9% FLUSH 5 ML FLUSH FLUSH SCH ×2 (09:01→21:00)
[2016-08-01] MEDS: guaiFENesin E.R. 600 MG TAB PO SCH ×2 (09:01→21:18)
[2016-08-01] MEDS: LEVOFLOXACIN 750 MG TAB PO SCH (11:39)
[2016-08-01] MEDS ORDERED: PHARMACY ORDERED LAB XX ONE (11:45)
--- NOTE | 2016-08-01 13:42 | HHI.PR ---
Subjective Remarks Able to move. No numbness. Pain is controlled by meds. No fever or chills overnight. No rash. Denies cp, sob, n/v/d/c. Objective Vitals Vital Signs Date Time Temp Pulse Resp B/P Pulse Ox O2 Delivery O2 Flow Rate FiO2 08/01/16 12:25 /78 104/78 08/01/16 12:04 98.8 80 18 85/47 99 08/01/16 08:02 97.6 90 18 107/67 100 08/01/16 05:42 18 08/01/16 04:00 97.0 92 18 118/75 100 08/01/16 00:26 96.9 111 18 126/75 100 08/01/16 00:18 18 07/31/16 21:03 97.3 96 18 102/60 98 07/31/16 18:27 96 21 07/31/16 14:05 97.7 89 16 109/66 98 07/31/16 13:45 97.7 89 16 109/66 98 I/O 07/31/16 07/31/16 07/31/16 08/01/16 08/01/16 08/01/16 07:00 15:00 23:00 07:00 15:00 23:00 Intake Total 1118 ml 200 ml Output Total 1700 ml 1850 ml Balance -582 ml -1650 ml Intake Oral 600 ml 200 ml IV Total 518 ml Output Urine Total 1700 ml 1850 ml # Voids 2 3 # Bowel Movements 0 0 Result Diagram: 07/29/16 0455 07/31/16 0655 Imaging Last Impressions Lumbar Spine X-Ray 07/30/16 0000 Signed Impressions: Service Date/Time: July 21:10 - CONCLUSION: 1. Surgical instruments overlie posterior elements at lumbosacral junction. Ovidio Mac MD Lumbar Spine MRI 07/30/16 0000 Signed Impressions: Service Date/Time: July 09:15 - CONCLUSION: 1. Acute discitis and associated osteomyelitis involving the L5-S1 level and the L5 and S1 vertebral bodies with moderate-sized anterior epidural abscess extending from the top of L5 to the bottom of S1 centrally and within the left paracentral region. The epidural abscess appears to impinge upon the left S1 nerve root and effaces the left anterior lateral aspect of the thecal sac at this level. 2. Moderate bilateral foraminal narrowing at L5-S1 secondary to diffuse disc bulge and facet joint hypertrophy bilaterally. 3. Minimal bilateral foraminal narrowing at L2-3 and L3-4. Vincent Olsen MD Abdomen/Pelvis CT 07/27/16 1623 Signed Impressions: Service Date/Time: Wednesday, July 27, 2016 19:04 - CONCLUSION: 1. Left lower lobe consolidation medially most characteristic of pneumonia. Right lung is clear. 2. Moderate constipation with ileus. 3. No renal calculi or evidence for obstructive uropathy. 4. Bladder mildly distended. No bladder calculi. Ovidio Mac MD Chest X-Ray 07/27/16 0000 Signed Impressions: Service Date/Time: Wednesday, July 27, 2016 20:57 - CONCLUSION: No acute disease. Ovidio Mac MD Objective Remarks GENERAL: Well-developed well-nourished. In no acute distress. SKIN: Warm and dry. No lesions noted. HEENT: Normocephalic. Pupils equal and round. Mucous membranes pink and moist. CARDIOVASCULAR: Regular rate and rhythm. No murmur appreciated. RESPIRATORY: No accessory muscle use. Clear to auscultation. Breath sounds equal bilaterally. GASTROINTESTINAL: Abdomen soft, non-tender, nondistended. Bowel sounds x4. MUSCULOSKELETAL: Back with 2 dressings c/d/i on lower back after surgery. No obvious deformities. No clubbing or cyanosis. No edema. NEUROLOGICAL: Awake and alert. No focal neurological deficits. Moves upper and lower extremities spontaneously. Normal speech. PSYCHIATRIC: Appropriate mood and affect; insight and judgment normal. A/P Problem List: (1) Bacteremia ICD Code: R78.81 Status: Acute (2) Left lower lobe pneumonia ICD Code: J18.1 Status: Acute (3) IVDU (intravenous drug user) ICD Code: F19.90 Status: Acute Assessment and Plan 36-year-old female with history of IVDU, chronic back pain, sciatica, migraines , presents with a one-week history of back pain. Bacteremia: 2/4 blood cultures with gram positive cocci, staph hominis Sepsis on presentation, has Coag Neg Staph(+) BC, patient with IVDU and back pain Repeat blood cultures x2 NTD. ID consulted seen by Dr Leiva . Continue IV Vanco. ESR/CRP elevated. Ordered lumbar spine MRI r/out discitis/ osteomyelitis. JAMIE no endocarditis. MRI with L5-S1 discitis, osteo and epidural abscess- S/P surgery 07/30/16 semilaminectomy, eval of epidural abscess and retention of degenerated herniated disc G/S and C/S negative so far Will need a long course of IV Abx Currently on vancomycin IV and also levaquin for PNA Pain meds, flexeril for back pain Community Acquired LLL Pneumonia: Consolidation seen on CT abd. WBC 9.6K upon arrival, afebrile, does not meet sepsis criteria. Continue on Levaquin. Sputum culture pending. ID recommends repeat CXR in a few days. Abnormal UA: UA with possible UTI, given IV Rocephin, however urine culture with 50-100K mixed lyndsay, likely contaminants. D/c IV Rocephin. On levaquin for pneumonia as above. Oral Candidiasis: Continue Magic Mouthwash 5ml SS qid. IVDU: counseled on cessation. Last use 8days prior to admission. Does not appear to be in withdrawal. Blood cultures positive as above. Tobacco Use: counseled on cessation, nicotine patch prn. PT consult. DVT Prophylaxis: Lovenox Discussed with the patient, nurse, ID specialist Dr Leiva Problem Qualifiers (1) Left lower lobe pneumonia: Qualified Code: J18.1 - Pneumonia of left lower lobe due to infectious organism Sandra Goodwin MD Aug 01, 2016 13:42
--- NOTE | 2016-08-01 14:05 | HHI.NSPN ---
History Chief Complaint: my back hurts Interval History Day2 after lumbar decompression for osteomyelitis, very alert and getting OOB. She is voiding on her own. Review of Systems General: Negative for: fever, chills, insomnia Respiratory: Negative for: shortness of breath, cough, sputum Cardiovascular: Negative for: chest pain, palpitations, orthopnea Gastrointestinal: Negative for: nausea, vomitting, diarrhea, constipation Genitourinary: Negative for: urinary burning, urinary frequency, urinary urgency Exam Results Vital Signs Date Time Temp Pulse Resp B/P Pulse Ox O2 Delivery O2 Flow Rate FiO2 08/01/16 12:25 /78 104/78 08/01/16 12:04 98.8 80 18 99 07/31/16 18:27 21 07/31/16 06:00 Room Air 07/30/16 22:45 10 Intake and Output 07/31/16 07/31/16 08/01/16 08:00 16:00 00:00 Intake Total 1318 ml Output Total 2250 ml 1300 ml Balance -932 ml -1300 ml Physical Examination Alert and cooperative, speech fluent, Motor 5/5 with pain in the hip flexors, quads, ant tib and EHL, gastroc nicole Sensory intact to LT in all dermatomes including S1 No Babinski, no clonus, no saddle anesthesia Wound in lower back dressed and dry Lab, Micro, Other Results Laboratory Tests Test 08/01/16 11:50 Vancomycin Level Trough 5.6 MCG/ML Microbiology Date/Time Procedure Status Source Growth 07/29/16 18:40 Gram Stain - Final Complete Sputum Expectorated Sputum 07/29/16 18:40 Sputum Culture - Final Complete Sputum Expectorated Sputum HEAVY GROWTH NORMAL RESPIRATORY FAUSTINO 07/30/16 06:25 Aerobic Blood Culture - Preliminary Resulted Blood Peripheral NO GROWTH IN 2 DAYS 07/30/16 06:25 Anaerobic Blood Culture - Preliminary Resulted Blood Peripheral NO GROWTH IN 2 DAYS 07/30/16 21:40 Gram Stain - Final Resulted Abscess Back 07/30/16 21:40 Wound Culture - Preliminary Resulted Abscess Back NO GROWTH IN 24 HOURS. 07/30/16 21:40 Acid Fast Stain - Final Resulted Abscess Back NO ACID FAST BACILLI SEEN 07/30/16 21:40 Mycobacterial Culture Resulted Abscess Back Pending 07/30/16 21:40 Fungal Smear - Final Resulted Abscess Back NO FUNGAL ELEMENTS SEEN. 07/30/16 21:40 Fungal Culture Resulted Abscess Back Pending 07/30/16 21:50 Gram Stain - Final Resulted Abscess Back 07/30/16 21:50 Wound Culture - Preliminary Resulted Abscess Back NO GROWTH IN 24 HOURS. 07/30/16 21:50 Acid Fast Stain - Final Resulted Abscess Back NO ACID FAST BACILLI SEEN 07/30/16 21:50 Mycobacterial Culture Resulted Abscess Back Pending 07/30/16 21:50 Fungal Smear - Final Resulted Abscess Back NO FUNGAL ELEMENTS SEEN. 07/30/16 21:50 Fungal Culture Resulted Abscess Back Pending 07/31/16 06:55 Aerobic Blood Culture - Preliminary Resulted Blood Peripheral NO GROWTH IN 1 DAY 07/31/16 06:55 Anaerobic Blood Culture - Preliminary Resulted Blood Peripheral NO GROWTH IN 1 DAY Medical Decision Making Impression and Plan Stable neurologically, followed by ID. A brace was added for comfort. rehab continued. Vin Robertson Aug 01, 2016 2:05 pm
[2016-08-01] MEDS: D5-1/2 NS + KCL 20 MEQ INJ 1,000 ML IV SCH ×2 (15:15→17:11)
[2016-08-02] VITALS (8 sets, daily range): BP systolic 94–120; BP diastolic 61–75; PULSE 74–96; RESP 18–20; TEMP 95.6–98.4; O2SAT 95–100
[2016-08-02] MEDS: VANCOMYCIN 1,000 MG/NS 250 ML IV SCH ×6 (04:23→21:01)
[2016-08-02] MEDS: CYCLOBENZAPRINE HCL 10 MG TAB PO PRN ×2 (04:23→18:29)
[2016-08-02] MEDS: ACETAMINOPHEN/HYDROcodone 325 MG/5 MG TAB PO PRN ×2 (04:26→11:13)
[2016-08-02] MEDS: MORPHINE SULFATE 4 MG/ML INJ IV PUSH PRN ×2 (05:22→11:47)
[2016-08-02] MEDS: SODIUM CHLORIDE 0.9% FLUSH 5 ML FLUSH FLUSH SCH ×2 (08:47→21:01)
[2016-08-02] MEDS: REMOVE OLD PATCH TD SCH (08:48)
[2016-08-02] MEDS: NYSTAT/DIPHENHY/LIDO MOUTHWASH (Adult) 120ML SWISH-SWAL SCH ×4 (08:48→21:21)
[2016-08-02] MEDS: NICOTINE 14 MG/24 HR PATCH TD SCH (08:48)
[2016-08-02] MEDS: guaiFENesin E.R. 600 MG TAB PO SCH ×2 (08:48→21:01)
--- NOTE | 2016-08-02 09:10 | HHI.PR ---
Subjective Remarks Says she has back pain especially with movement. Pain meds held as BP is into a lower side. No n/v/d/c. Denies fever or chills. Will change fluids to NS and will give a bolus of 1l NS. Objective Vitals Vital Signs Date Time Temp Pulse Resp B/P Pulse Ox O2 Delivery O2 Flow Rate FiO2 08/02/16 04:00 97.2 82 18 105/68 99 08/02/16 00:00 97.6 78 18 114/72 97 08/01/16 20:00 97.2 88 18 118/74 98 08/01/16 19:14 21 08/01/16 18:00 102 22 114/76 08/01/16 16:00 97.7 82 18 101/72 100 Manual Cuff/Auscultation Arterial Line 08/01/16 12:25 /78 104/78 08/01/16 12:04 98.8 80 18 85/47 99 08/01/16 10:15 100 21 I/O 08/01/16 08/01/16 08/01/16 08/02/16 08/02/16 08/02/16 07:00 15:00 23:00 07:00 15:00 23:00 # Voids 2 4 4 # Bowel Movements 0 0 Result Diagram: 07/29/16 0455 07/31/16 0655 Imaging Last Impressions Lumbar Spine X-Ray 07/30/16 0000 Signed Impressions: Service Date/Time: July 21:10 - CONCLUSION: 1. Surgical instruments overlie posterior elements at lumbosacral junction. Ovidio Mac MD Lumbar Spine MRI 07/30/16 0000 Signed Impressions: Service Date/Time: July 09:15 - CONCLUSION: 1. Acute discitis and associated osteomyelitis involving the L5-S1 level and the L5 and S1 vertebral bodies with moderate-sized anterior epidural abscess extending from the top of L5 to the bottom of S1 centrally and within the left paracentral region. The epidural abscess appears to impinge upon the left S1 nerve root and effaces the left anterior lateral aspect of the thecal sac at this level. 2. Moderate bilateral foraminal narrowing at L5-S1 secondary to diffuse disc bulge and facet joint hypertrophy bilaterally. 3. Minimal bilateral foraminal narrowing at L2-3 and L3-4. Vincent Olsen MD Abdomen/Pelvis CT 07/27/16 1623 Signed Impressions: Service Date/Time: Wednesday, July 27, 2016 19:04 - CONCLUSION: 1. Left lower lobe consolidation medially most characteristic of pneumonia. Right lung is clear. 2. Moderate constipation with ileus. 3. No renal calculi or evidence for obstructive uropathy. 4. Bladder mildly distended. No bladder calculi. Ovidio Mac MD Chest X-Ray 07/27/16 0000 Signed Impressions: Service Date/Time: Wednesday, July 27, 2016 20:57 - CONCLUSION: No acute disease. Ovidio Mac MD Objective Remarks GENERAL: Well-developed well-nourished. In no acute distress. SKIN: Warm and dry. No lesions noted. HEENT: Normocephalic. Pupils equal and round. Mucous membranes pink and moist. CARDIOVASCULAR: Regular rate and rhythm. No murmur appreciated. RESPIRATORY: No accessory muscle use. Clear to auscultation. Breath sounds equal bilaterally. GASTROINTESTINAL: Abdomen soft, non-tender, nondistended. Bowel sounds x4. MUSCULOSKELETAL: Back with 2 dressings c/d/i on lower back after surgery. No obvious deformities. No clubbing or cyanosis. No edema. NEUROLOGICAL: Awake and alert. No focal neurological deficits. Moves upper and lower extremities spontaneously. Normal speech. PSYCHIATRIC: Appropriate mood and affect; insight and judgment normal. A/P Problem List: (1) Bacteremia ICD Code: R78.81 Status: Acute (2) Left lower lobe pneumonia ICD Code: J18.1 Status: Acute (3) IVDU (intravenous drug user) ICD Code: F19.90 Status: Acute Assessment and Plan 36-year-old female with history of IVDU, chronic back pain, sciatica, migraines , presents with a one-week history of back pain. Bacteremia: 2/4 blood cultures with gram positive cocci, staph hominis Sepsis on presentation, has Coag Neg Staph(+) BC, patient with IVDU and back pain Repeat blood cultures x2 NTD. ID consulted seen by Dr Leiva . Continue IV Vanco. ESR/CRP elevated. Ordered lumbar spine MRI r/out discitis/ osteomyelitis. JAMIE no endocarditis. MRI with L5-S1 discitis, osteo and epidural abscess- S/P surgery 07/30/16 semilaminectomy, eval of epidural abscess and retention of degenerated herniated disc G/S and C/S negative so far Will need a long course of IV Abx Currently on vancomycin IV and also levaquin for PNA Pain meds per pain scale, hold pain meds if low BP discussed with the patient and the nurse. Flexeril for back pain Community Acquired LLL Pneumonia: Consolidation seen on CT abd. WBC 9.6K upon arrival, afebrile, does not meet sepsis criteria. Continue on Levaquin. Sputum culture pending. ID recommends repeat CXR in a few days. Will repeat CXR. Abnormal UA: UA with possible UTI, given IV Rocephin, however urine culture with 50-100K mixed lyndsay, likely contaminants. D/c IV Rocephin. On levaquin for pneumonia as above. low BP. Change IVF to 0.9 NS. Give 1L NS bolus. Oral Candidiasis: Continue Magic Mouthwash 5ml SS qid. IVDU: counseled on cessation. Last use 8days prior to admission. Does not appear to be in withdrawal. Blood cultures positive as above. Tobacco Use: counseled on cessation, nicotine patch prn. PT consult. DVT Prophylaxis: Lovenox Discussed with the patient, nurse Problem Qualifiers (1) Left lower lobe pneumonia: Qualified Code: J18.1 - Pneumonia of left lower lobe due to infectious organism Sandra Goodwin MD Aug 02, 2016 09:10
[2016-08-02] MEDS ORDERED: SODIUM CHLOR 0.9% 1000 ML INJ 1,000 ML IV ONE (09:30)
[2016-08-02] MEDS: LEVOFLOXACIN 750 MG TAB PO SCH (11:12)
[2016-08-02] MEDS ORDERED: PHARMACY ORDERED LAB XX ONE (11:45)
--- NOTE | 2016-08-02 13:19 | HHI.NSPN ---
History Chief Complaint: my back hurts Interval History Day 3 after lumbar decompression for osteomyelitis, very alert and getting OOB. She is voiding on her own but has some constipation and pain control difficulties Review of Systems General: Negative for: fever, chills, insomnia Exam Results Vital Signs Date Time Temp Pulse Resp B/P Pulse Ox O2 Delivery O2 Flow Rate FiO2 08/02/16 11:50 97.0 96 18 107/62 98 08/02/16 09:15 21 07/31/16 06:00 Room Air 07/30/16 22:45 10 Physical Examination Alert and cooperative, speech fluent, Motor 5/5 with pain in the hip flexors, quads, ant tib and EHL, gastroc nicole Sensory intact to LT in all dermatomes including S1 No Babinski, no clonus, no saddle anesthesia Wound in lower back dressed and dry Lab, Micro, Other Results Microbiology Date/Time Procedure Status Source Growth 07/30/16 21:40 Gram Stain - Final Complete Abscess Back 07/30/16 21:40 Wound Culture - Final Complete Pseudomonas Aeruginosa 07/30/16 21:40 Acid Fast Stain - Final Resulted Abscess Back NO ACID FAST BACILLI SEEN 07/30/16 21:40 Mycobacterial Culture Resulted Abscess Back Pending 07/30/16 21:40 Fungal Smear - Final Resulted Abscess Back NO FUNGAL ELEMENTS SEEN. 07/30/16 21:40 Fungal Culture Resulted Abscess Back Pending 07/30/16 21:50 Gram Stain - Final Complete Abscess Back 07/30/16 21:50 Wound Culture - Final Complete Abscess Back NO GROWTH IN 72 HRS.--AEROBICALLY OR ... 07/30/16 21:50 Acid Fast Stain - Final Resulted Abscess Back NO ACID FAST BACILLI SEEN 07/30/16 21:50 Mycobacterial Culture Resulted Abscess Back Pending 07/30/16 21:50 Fungal Smear - Final Resulted Abscess Back NO FUNGAL ELEMENTS SEEN. 07/30/16 21:50 Fungal Culture Resulted Abscess Back Pending 07/31/16 06:55 Aerobic Blood Culture - Preliminary Resulted Blood Peripheral NO GROWTH IN 2 DAYS 07/31/16 06:55 Anaerobic Blood Culture - Preliminary Resulted Blood Peripheral NO GROWTH IN 2 DAYS Medical Decision Making Impression and Plan Stable neurologically, followed by ID for pseudomonas at L5S1 with osteomyelitis. A brace was added for comfort. rehab continued. Total Minutes: 10 Vin Robertson Aug 02, 2016 13:19
[2016-08-02] MEDS: MORPHINE SULFATE 30 MG CONTROLLED RELEASE TAB PO SCH ×2 (14:47→21:02)
[2016-08-02] MEDS: SODIUM CHLOR 0.9% 1000 ML INJ 1,000 ML IV SCH ×2 (14:48→18:31)
[2016-08-03] VITALS: BP 114/71; PULSE 86; RESP 18; TEMP 97.2; O2SAT 100
[2016-08-03 04:00] VITALS: BP 114/69; PULSE 77; RESP 18; TEMP 96.1; O2SAT 97
[2016-08-03] MEDS: VANCOMYCIN 1,000 MG/NS 250 ML IV SCH ×6 (04:03→21:26)
[2016-08-03] MEDS: SODIUM CHLOR 0.9% 1000 ML INJ 1,000 ML IV SCH ×2 (04:05→17:36)
[2016-08-03] MEDS: MORPHINE SULFATE 4 MG/ML INJ IV PUSH PRN ×6 (05:22→21:17)
[2016-08-03] MEDS: CYCLOBENZAPRINE HCL 10 MG TAB PO PRN ×2 (05:22→13:09)
--- NOTE | 2016-08-03 07:02 | RADRPT ---
EXAM DATE/TIME: 08/03/2016 05:43 [facility] COMPARISON: CHEST SINGLE AP, July 27, 2016, 20:57. INDICATIONS : Coughing, short of breath, severe back pain, recent back surgery MEDICAL HISTORY : seizures SURGICAL HISTORY : lumbar spine ENCOUNTER: Subsequent ACUITY: 1 week PAIN SCORE: 9/10 LOCATION: Bilateral chest FINDINGS: A single view of the chest demonstrates the lungs to be symmetrically aerated without evidence of mas s, infiltrate or effusion. The cardiomediastinal contours are unremarkable. Osseous structures are intact. CONCLUSION: 1. No acute cardiopulmonary disease. Karlo Vizcarra MD on August 03, 2016 at 7:00 Board Certified Radiologist. This report was verified electronically.
[2016-08-03 08:34] VITALS: BP 108/62; PULSE 70; RESP 20; TEMP 96.9; O2SAT 99
[2016-08-03] MEDS: BISACODYL 10 MG SUPP RECTAL SCH (09:00)
[2016-08-03] MEDS: REMOVE OLD PATCH TD SCH (09:00)
[2016-08-03] MEDS: CHOLECALCIFEROL (VIT D3) 1000 UNIT TAB PO SCH (09:04)
[2016-08-03] MEDS: MORPHINE SULFATE 30 MG CONTROLLED RELEASE TAB PO SCH ×2 (09:04→21:13)
[2016-08-03] MEDS: guaiFENesin E.R. 600 MG TAB PO SCH ×2 (09:05→21:12)
[2016-08-03] MEDS: NICOTINE 14 MG/24 HR PATCH TD SCH (09:05)
[2016-08-03] MEDS: DOCUSATE SODIUM 50 MG/SENNA 8.6 MG TAB PO SCH (09:05)
[2016-08-03] MEDS: NYSTAT/DIPHENHY/LIDO MOUTHWASH (Adult) 120ML SWISH-SWAL SCH ×4 (09:06→21:13)
[2016-08-03] MEDS: SODIUM CHLORIDE 0.9% FLUSH 5 ML FLUSH FLUSH SCH ×2 (09:07→21:00)
--- NOTE | 2016-08-03 11:05 | HHI.IDPN ---
Subjective Subjective Remarks Notes reviewed No fever Started getting OOB this weekend C/O back mc after she has been up Wears a brace when she is up C/S from OR with rare PSAE BC on admission with Staph hominis Repeat BC negative so far TTE report noted, no mention of vegetation 07/30 - Had hemilaminectomy, evac of epidural abscess and resection of degenerated herniated disc G/S and C/S negative so far Antibiotics Levaquin Vanco Lines PIV Past Medical History chronic back pain sciatica migraines 2 pregnancies, and 2 spontaneous vaginal delivery Previous HIV testing negative, last one probably in the last 6-12 months done in the [facility] Allergies: Coded Allergies: Dimetapp (Verified Allergy, Severe, Hives, 11/21/15) Objective . Vital Signs Date Time Temp Pulse Resp B/P Pulse Ox O2 Delivery O2 Flow Rate FiO2 08/03/16 10:04 18 08/03/16 09:16 20 08/03/16 08:34 96.9 70 20 108/62 99 08/03/16 04:00 96.1 77 18 114/69 97 08/03/16 00:00 97.2 86 18 114/71 100 08/02/16 20:00 98.4 87 18 105/68 99 08/02/16 15:54 95.6 89 18 110/75 100 08/02/16 11:50 97.0 96 18 107/62 98 08/02/16 11:11 106/64 08/02/16 08/02/16 08/03/16 15:00 23:00 07:00 Intake Total 480 ml 850 ml Balance 480 ml 850 ml Intake Oral 480 ml 850 ml # Voids 9 7 # Bowel Movements 0 . Laboratory Tests Test 08/02/16 08:09 Creatinine 0.57 MG/DL Estimat Glomerular Filtration 120 ML/MIN Rate Imaging Last Impressions Lumbar Spine MRI 07/30/16 0000 Signed Impressions: Service Date/Time: July 09:15 - CONCLUSION: 1. Acute discitis and associated osteomyelitis involving the L5-S1 level and the L5 and S1 vertebral bodies with moderate-sized anterior epidural abscess extending from the top of L5 to the bottom of S1 centrally and within the left paracentral region. The epidural abscess appears to impinge upon the left S1 nerve root and effaces the left anterior lateral aspect of the thecal sac at this level. 2. Moderate bilateral foraminal narrowing at L5-S1 secondary to diffuse disc bulge and facet joint hypertrophy bilaterally. 3. Minimal bilateral foraminal narrowing at L2-3 and L3-4. Vincent Olsen MD Lumbar Spine X-Ray 07/28/16 0000 Signed Impressions: Service Date/Time: Thursday, July 28, 2016 18:52 - CONCLUSION: 1. No acute findings. Degenerative change as above. Ovidio Mac MD Abdomen/Pelvis CT 07/27/16 1623 Signed Impressions: Service Date/Time: Wednesday, July 27, 2016 19:04 - CONCLUSION: 1. Left lower lobe consolidation medially most characteristic of pneumonia. Right lung is clear. 2. Moderate constipation with ileus. 3. No renal calculi or evidence for obstructive uropathy. 4. Bladder mildly distended. No bladder calculi. Ovidio Mac MD Chest X-Ray 07/27/16 0000 Signed Impressions: Service Date/Time: Wednesday, July 27, 2016 20:57 - CONCLUSION: No acute disease. Ovidio Mac MD Physical Exam GENERAL: awake and alert, not in respiratory distress. SKIN: Warm and moist, no generalized rash. No embolic lesions. She has some track hernandez in her upper extremities. HEENT: Pale conjunctivae, no petechia or hemorrhage. No scleral icterus. Moist oral mucosa. Throat without erythema or exudate. NECK: Has some cervical lymphadenopathy. Supple, nontender, no meningeal signs. CARDIOVASCULAR: Regular rate and rhythm without murmurs, gallops, or rubs. RESPIRATORY: Clear to auscultation. Breath sounds equal bilaterally. No wheezes , rales, or rhonchi. GASTROINTESTINAL: Abdomen soft, non-tender, nondistended. No hepato-splenomegaly , or palpable masses. Bowel sounds are present and normoactive. No guarding. MUSCULOSKELETAL: Extremities without clubbing, cyanosis, or edema. No joint tenderness, effusion, or edema noted. No calf tenderness. Negative Homans sign bilaterally. NEUROLOGICAL: Non-focal BACK: Incision dry, no redness, has old dried blood LINE: PIV with no evidence of infection Assessment & Plan Remarks IMPRESSION Sepsis on presentation, has Staph hominis (+) BC on admission, patient with IVDU and back pain - Fup BC negative MRI with L5-S1 discitis, osteo and epidural abscess - S/P surgery - C/S with PSAE (+) UA, no significant symptoms Known active IVDU RECOMMENDATION Follow BC Continue vancomycin Continue Levaquin Add Cefepime for 2nd PSAE coverage If BC negative, will have PICC placed Monitor progress Will need a long course of IV Abx Disposition will be a problem because of her IVDU and she has no insurance coverage Spoke with CM Explained plan to patient Tamika Leiva MD Aug 03, 2016 11:05
[2016-08-03 11:47] VITALS: BP 125/63; PULSE 80; RESP 20; TEMP 97.1; O2SAT 100
[2016-08-03] MEDS: LEVOFLOXACIN 750 MG TAB PO SCH (12:30)
[2016-08-03] MEDS: CEFEPIME INJ 2,000 MG in SODIUM CHLORIDE 0.9% INJ 100 ML IV SCH (12:30)
--- NOTE | 2016-08-03 12:50 | HHI.PR ---
Subjective Remarks BP better controlled. Pain when moving. Says she has spasm as well. No n/v/d/c. Denies cp, sob. No fever or chills. Able to ambulate to the bedside commode. Objective Vitals Vital Signs Date Time Temp Pulse Resp B/P Pulse Ox O2 Delivery O2 Flow Rate FiO2 08/03/16 11:47 97.1 80 20 125/63 100 08/03/16 10:04 18 08/03/16 09:16 20 08/03/16 08:34 96.9 70 20 108/62 99 08/03/16 04:00 96.1 77 18 114/69 97 08/03/16 00:00 97.2 86 18 114/71 100 08/02/16 20:00 98.4 87 18 105/68 99 08/02/16 15:54 95.6 89 18 110/75 100 I/O 08/02/16 08/02/16 08/02/16 08/03/16 08/03/16 08/03/16 07:00 15:00 23:00 07:00 15:00 23:00 Intake Total 480 ml 850 ml 1450 ml Balance 480 ml 850 ml 1450 ml Intake Oral 480 ml 850 ml IV Total 1450 ml # Voids 9 7 # Bowel Movements 0 Result Diagram: 08/02/16 0809 Imaging Last Impressions Chest X-Ray 08/03/16 0600 Signed Impressions: Service Date/Time: Wednesday, August 03, 2016 05:43 - CONCLUSION: 1. No acute cardiopulmonary disease. Karlo Vizcarra MD Lumbar Spine X-Ray 07/30/16 0000 Signed Impressions: Service Date/Time: July 21:10 - CONCLUSION: 1. Surgical instruments overlie posterior elements at lumbosacral junction. Ovidio Mac MD Lumbar Spine MRI 07/30/16 0000 Signed Impressions: Service Date/Time: July 09:15 - CONCLUSION: 1. Acute discitis and associated osteomyelitis involving the L5-S1 level and the L5 and S1 vertebral bodies with moderate-sized anterior epidural abscess extending from the top of L5 to the bottom of S1 centrally and within the left paracentral region. The epidural abscess appears to impinge upon the left S1 nerve root and effaces the left anterior lateral aspect of the thecal sac at this level. 2. Moderate bilateral foraminal narrowing at L5-S1 secondary to diffuse disc bulge and facet joint hypertrophy bilaterally. 3. Minimal bilateral foraminal narrowing at L2-3 and L3-4. Vincent Olsen MD Abdomen/Pelvis CT 07/27/16 1623 Signed Impressions: Service Date/Time: Wednesday, July 27, 2016 19:04 - CONCLUSION: 1. Left lower lobe consolidation medially most characteristic of pneumonia. Right lung is clear. 2. Moderate constipation with ileus. 3. No renal calculi or evidence for obstructive uropathy. 4. Bladder mildly distended. No bladder calculi. Ovidio Mac MD Objective Remarks GENERAL: Well-developed well-nourished. In no acute distress. SKIN: Warm and dry. No lesions noted. HEENT: Normocephalic. Pupils equal and round. Mucous membranes pink and moist. CARDIOVASCULAR: Regular rate and rhythm. No murmur appreciated. RESPIRATORY: No accessory muscle use. Clear to auscultation. Breath sounds equal bilaterally. GASTROINTESTINAL: Abdomen soft, non-tender, nondistended. Bowel sounds x4. MUSCULOSKELETAL: Back with 2 dressings c/d/i on lower back after surgery. No obvious deformities. No clubbing or cyanosis. No edema. NEUROLOGICAL: Awake and alert. No focal neurological deficits. Moves upper and lower extremities spontaneously. Normal speech. PSYCHIATRIC: Appropriate mood and affect; insight and judgment normal. A/P Problem List: (1) Bacteremia ICD Code: R78.81 Status: Acute (2) Left lower lobe pneumonia ICD Code: J18.1 Status: Acute (3) IVDU (intravenous drug user) ICD Code: F19.90 Status: Acute Assessment and Plan 36-year-old female with history of IVDU, chronic back pain, sciatica, migraines , presents with a one-week history of back pain. Bacteremia: 2/4 blood cultures with gram positive cocci, staph hominis Sepsis on presentation, has Coag Neg Staph(+) BC, patient with IVDU and back pain Repeat blood cultures x2 NTD. ID consulted seen by Dr Leiva . Continue IV Vanco. ESR/CRP elevated. Ordered lumbar spine MRI r/out discitis/ osteomyelitis. JAMIE no endocarditis. MRI with L5-S1 discitis, osteo and epidural abscess- S/P surgery 07/30/16 semilaminectomy, eval of epidural abscess and retention of degenerated herniated disc G/S and C/S negative so far Will need a long course of IV Abx Currently on vancomycin IV and also levaquin for PNA Pain meds per pain scale, hold pain meds if low BP discussed with the patient and the nurse. Flexeril for back pain Community Acquired LLL Pneumonia: Consolidation seen on CT abd. WBC 9.6K upon arrival, afebrile, does not meet sepsis criteria. Continue on Levaquin. Sputum culture pending. ID recommends repeat CXR in a few days. Repeat CXR reviewed. Abnormal UA: UA with possible UTI, given IV Rocephin, however urine culture with 50-100K mixed lyndsay, likely contaminants. D/c IV Rocephin. On levaquin for pneumonia as above. low BP. Change IVF to 0.9 NS. Give 1L NS bolus. Oral Candidiasis: Continue Magic Mouthwash 5ml SS qid. IVDU: counseled on cessation. Last use 8days prior to admission. Does not appear to be in withdrawal. Blood cultures positive as above. Tobacco Use: counseled on cessation, nicotine patch prn. PT consult. DVT Prophylaxis: Lovenox Discussed with the patient, nurse Problem Qualifiers (1) Left lower lobe pneumonia: Qualified Code: J18.1 - Pneumonia of left lower lobe due to infectious organism Sandra Goodwin MD Aug 03, 2016 12:50
[2016-08-03 16:06] VITALS: BP 111/64; PULSE 86; RESP 20; TEMP 98.1; O2SAT 99
[2016-08-03 20:52] VITALS: BP 116/68; PULSE 80; RESP 20; TEMP 98.5; O2SAT 100
[2016-08-04 00:39] VITALS: BP 112/73; PULSE 85; RESP 20; TEMP 98.7; O2SAT 96
[2016-08-04] MEDS: CEFEPIME INJ 2,000 MG in SODIUM CHLORIDE 0.9% INJ 100 ML IV SCH ×3 (01:13→23:42)
[2016-08-04] MEDS: SODIUM CHLOR 0.9% 1000 ML INJ 1,000 ML IV SCH ×3 (01:15→21:23)
[2016-08-04] MEDS: MORPHINE SULFATE 4 MG/ML INJ IV PUSH PRN ×6 (01:17→23:54)
[2016-08-04] MEDS: VANCOMYCIN 1,000 MG/NS 250 ML IV SCH ×6 (03:54→21:22)
[2016-08-04 05:32] VITALS: BP 110/74; PULSE 87; RESP 20; TEMP 96.5; O2SAT 100
[2016-08-04] MEDS: CYCLOBENZAPRINE HCL 10 MG TAB PO PRN ×2 (06:38→13:14)
[2016-08-04 07:54] VITALS: BP 120/66; PULSE 76; RESP 20; TEMP 97.7; O2SAT 100
[2016-08-04] MEDS: REMOVE OLD PATCH TD SCH (09:00)
[2016-08-04] MEDS: SODIUM CHLORIDE 0.9% FLUSH 5 ML FLUSH FLUSH SCH ×2 (09:00→21:00)
--- NOTE | 2016-08-04 10:17 | HHI.PR ---
Subjective Remarks Says she has pain in her back, however is able to move to bedside commode. No fever or chills. overnight. No n/v/d/c. Objective Vitals Vital Signs Date Time Temp Pulse Resp B/P Pulse Ox O2 Delivery O2 Flow Rate FiO2 08/04/16 07:54 97.7 76 20 120/66 100 08/04/16 05:32 96.5 87 20 110/74 100 08/04/16 00:39 98.7 85 20 112/73 96 08/03/16 20:52 98.5 80 20 116/68 100 08/03/16 17:57 20 08/03/16 16:06 98.1 86 20 111/64 99 08/03/16 11:47 97.1 80 20 125/63 100 I/O 08/03/16 08/03/16 08/03/16 08/04/16 08/04/16 08/04/16 07:00 15:00 23:00 07:00 15:00 23:00 Intake Total 850 ml 1450 ml 2811 ml Output Total 1000 ml 600 ml Balance 850 ml 1450 ml 1811 ml -600 ml Intake Oral 850 ml 1200 ml IV Total 1450 ml 1611 ml Output Urine Total 1000 ml 600 ml # Voids 7 # Bowel Movements 0 0 Result Diagram: 08/04/16 0708 Imaging Last Impressions Chest X-Ray 08/03/16 0600 Signed Impressions: Service Date/Time: Wednesday, August 03, 2016 05:43 - CONCLUSION: 1. No acute cardiopulmonary disease. Karlo Vizcarra MD Lumbar Spine X-Ray 07/30/16 0000 Signed Impressions: Service Date/Time: July 21:10 - CONCLUSION: 1. Surgical instruments overlie posterior elements at lumbosacral junction. Ovidio Mac MD Lumbar Spine MRI 07/30/16 0000 Signed Impressions: Service Date/Time: July 09:15 - CONCLUSION: 1. Acute discitis and associated osteomyelitis involving the L5-S1 level and the L5 and S1 vertebral bodies with moderate-sized anterior epidural abscess extending from the top of L5 to the bottom of S1 centrally and within the left paracentral region. The epidural abscess appears to impinge upon the left S1 nerve root and effaces the left anterior lateral aspect of the thecal sac at this level. 2. Moderate bilateral foraminal narrowing at L5-S1 secondary to diffuse disc bulge and facet joint hypertrophy bilaterally. 3. Minimal bilateral foraminal narrowing at L2-3 and L3-4. Vincent Olsen MD Abdomen/Pelvis CT 07/27/16 1623 Signed Impressions: Service Date/Time: Wednesday, July 27, 2016 19:04 - CONCLUSION: 1. Left lower lobe consolidation medially most characteristic of pneumonia. Right lung is clear. 2. Moderate constipation with ileus. 3. No renal calculi or evidence for obstructive uropathy. 4. Bladder mildly distended. No bladder calculi. Ovidio Mac MD Objective Remarks GENERAL: Well-developed well-nourished. In no acute distress. SKIN: Warm and dry. No lesions noted. HEENT: Normocephalic. Pupils equal and round. Mucous membranes pink and moist. CARDIOVASCULAR: Regular rate and rhythm. No murmur appreciated. RESPIRATORY: No accessory muscle use. Clear to auscultation. Breath sounds equal bilaterally. GASTROINTESTINAL: Abdomen soft, non-tender, nondistended. Bowel sounds x4. MUSCULOSKELETAL: Back with 2 dressings c/d/i on lower back after surgery. No obvious deformities. No clubbing or cyanosis. No edema. NEUROLOGICAL: Awake and alert. No focal neurological deficits. Moves upper and lower extremities spontaneously. Normal speech. PSYCHIATRIC: Appropriate mood and affect; insight and judgment normal. A/P Problem List: (1) Bacteremia ICD Code: R78.81 Status: Acute (2) Left lower lobe pneumonia ICD Code: J18.1 Status: Acute (3) IVDU (intravenous drug user) ICD Code: F19.90 Status: Acute Assessment and Plan 36-year-old female with history of IVDU, chronic back pain, sciatica, migraines , presents with a one-week history of back pain. Bacteremia: 2/4 blood cultures with gram positive cocci, staph hominis Sepsis on presentation, has Coag Neg Staph(+) BC, patient with IVDU and back pain Repeat blood cultures x2 NTD. ID consulted seen by Dr Leiva . Continue IV Vanco. ESR/CRP elevated. Ordered lumbar spine MRI r/out discitis/ osteomyelitis. JAMIE no endocarditis. MRI with L5-S1 discitis, osteo and epidural abscess- S/P surgery 07/30/16 semilaminectomy, eval of epidural abscess and retention of degenerated herniated disc G/S and C/S negative so far Will need a long course of IV Abx Currently on vancomycin IV and also levaquin for PNA Pain meds per pain scale, hold pain meds if low BP discussed with the patient and the nurse. Flexeril for back pain Community Acquired LLL Pneumonia: Consolidation seen on CT abd. WBC 9.6K upon arrival, afebrile, does not meet sepsis criteria. Continue on Levaquin. Sputum culture pending. ID recommends repeat CXR in a few days. Repeat CXR reviewed. Abnormal UA: UA with possible UTI, given IV Rocephin, however urine culture with 50-100K mixed lyndsay, likely contaminants. D/c IV Rocephin. On levaquin for pneumonia as above. low BP. Change IVF to 0.9 NS. Give 1L NS bolus. Oral Candidiasis: Continue Magic Mouthwash 5ml SS qid. IVDU: counseled on cessation. Last use 8days prior to admission. Does not appear to be in withdrawal. Blood cultures positive as above. Tobacco Use: counseled on cessation, nicotine patch prn. PT consult. DVT Prophylaxis: Lovenox Discussed with the patient, nurse Problem Qualifiers (1) Left lower lobe pneumonia: Qualified Code: J18.1 - Pneumonia of left lower lobe due to infectious organism Sandra Goodwin MD Aug 04, 2016 10:17
[2016-08-04] MEDS: MORPHINE SULFATE 30 MG CONTROLLED RELEASE TAB PO SCH ×2 (10:52→21:22)
[2016-08-04] MEDS: NICOTINE 14 MG/24 HR PATCH TD SCH (10:53)
[2016-08-04] MEDS: BISACODYL 10 MG SUPP RECTAL SCH (10:54)
[2016-08-04] MEDS: LEVOFLOXACIN 750 MG TAB PO SCH (10:54)
[2016-08-04] MEDS: CHOLECALCIFEROL (VIT D3) 1000 UNIT TAB PO SCH (10:54)
[2016-08-04] MEDS: DOCUSATE SODIUM 50 MG/SENNA 8.6 MG TAB PO SCH (10:54)
[2016-08-04] MEDS: guaiFENesin E.R. 600 MG TAB PO SCH ×2 (10:55→21:22)
[2016-08-04] MEDS: NYSTAT/DIPHENHY/LIDO MOUTHWASH (Adult) 120ML SWISH-SWAL SCH ×4 (10:57→21:22)
[2016-08-04 12:36] VITALS: BP 97/59; PULSE 86; RESP 20; TEMP 97.8; O2SAT 100
[2016-08-04] MEDS: ACETAMINOPHEN/HYDROcodone 325 MG/5 MG TAB PO PRN ×2 (13:15→17:08)
[2016-08-04 17:13] VITALS: BP 133/80; PULSE 92; RESP 20; TEMP 98.6; O2SAT 100
--- NOTE | 2016-08-04 20:06 | HHI.NSPN ---
History Chief Complaint: left back and gluteal region pain Interval History 07/30/2016: Status post L5-S1 laminectomy, evacuation epidural abscess. Exam Results Vital Signs Date Time Temp Pulse Resp B/P Pulse Ox O2 Delivery O2 Flow Rate FiO2 08/04/16 19:10 18 08/04/16 17:13 98.6 92 133/80 100 08/02/16 09:15 21 Intake and Output 08/03/16 08/03/16 08/04/16 08:00 16:00 00:00 Intake Total 2300 ml 2811 ml Output Total 1000 ml Balance 2300 ml 1811 ml Physical Examination Alert and cooperative, speech fluent, Motor 5/5 in all major flexion and extension groups in the right and left lower extremity Sensory intact to LT in all lower extremity dermatomes including S1 No Babinski, no clonus, no saddle anesthesia Wound in lower back dressed and dry Lab, Micro, Other Results Laboratory Tests Test 08/04/16 07:08 Creatinine 0.47 MG/DL Estimat Glomerular Filtration 150 ML/MIN Rate Medical Decision Making Impression and Plan Impression: 1. Stable neurologic exam postoperative. No focal or extremity neurologic deficit following L5-S1 laminectomy evacuation of epidural abscess 2. Persistent left gluteal, hip region pain 3. L5-S1 discitis, osteomyelitis Plan: Discussed with patient. Continue to mobilize out of bed as tolerated. No lumbar brace necessary at this time. Activity precautions including no reaching, bending, heavy lifting. Continuing IV antibiotics per infectious disease: Vancomycin, Levaquin, cefepime Total Minutes: 10 Hamilton Baer MD Aug 04, 2016 20:06
[2016-08-04 20:57] VITALS: BP 123/65; PULSE 81; RESP 20; TEMP 98.4; O2SAT 100
[2016-08-05 00:27] VITALS: BP 102/59; PULSE 95; RESP 18; TEMP 98.6; O2SAT 100
[2016-08-05] MEDS: CYCLOBENZAPRINE HCL 10 MG TAB PO PRN ×3 (02:16→21:11)
[2016-08-05] MEDS: VANCOMYCIN 1,000 MG/NS 250 ML IV SCH ×6 (04:29→21:09)
[2016-08-05] MEDS: MORPHINE SULFATE 4 MG/ML INJ IV PUSH PRN ×5 (04:30→23:03)
[2016-08-05 05:37] VITALS: BP 119/75; PULSE 84; RESP 19; TEMP 96.7; O2SAT 100
[2016-08-05] MEDS: ACETAMINOPHEN/HYDROcodone 325 MG/5 MG TAB PO PRN ×4 (06:57→21:11)
[2016-08-05] MEDS: SODIUM CHLOR 0.9% 1000 ML INJ 1,000 ML IV SCH ×2 (07:30→11:41)
[2016-08-05 08:00] VITALS: BP 107/67; PULSE 76; RESP 17; TEMP 97.1; O2SAT 99
[2016-08-05] MEDS: BISACODYL 10 MG SUPP RECTAL SCH (09:00)
[2016-08-05] MEDS: REMOVE OLD PATCH TD SCH (09:00)
[2016-08-05] MEDS: SODIUM CHLORIDE 0.9% FLUSH 5 ML FLUSH FLUSH SCH ×2 (09:20→21:00)
[2016-08-05] MEDS: guaiFENesin E.R. 600 MG TAB PO SCH ×2 (09:20→21:11)
[2016-08-05] MEDS: NYSTAT/DIPHENHY/LIDO MOUTHWASH (Adult) 120ML SWISH-SWAL SCH ×4 (09:21→21:17)
[2016-08-05] MEDS: DOCUSATE SODIUM 50 MG/SENNA 8.6 MG TAB PO SCH (09:21)
[2016-08-05] MEDS: NICOTINE 14 MG/24 HR PATCH TD SCH (09:21)
[2016-08-05] MEDS: CHOLECALCIFEROL (VIT D3) 1000 UNIT TAB PO SCH (09:21)
[2016-08-05] MEDS: MORPHINE SULFATE 30 MG CONTROLLED RELEASE TAB PO SCH ×2 (09:21→21:11)
[2016-08-05] MEDS: LEVOFLOXACIN 750 MG TAB PO SCH (11:41)
[2016-08-05] MEDS: CEFEPIME INJ 2,000 MG in SODIUM CHLORIDE 0.9% INJ 100 ML IV SCH ×2 (11:41→23:03)
[2016-08-05 12:00] VITALS: BP 97/54; PULSE 77; RESP 16; TEMP 96.7; O2SAT 100
--- NOTE | 2016-08-05 12:17 | HHI.IDPN ---
Subjective Subjective Remarks Notes reviewed No fever Main problem is pain control C/S from OR with rare PSAE BC on admission with Staph hominis Repeat BC negative so far TTE report noted, no mention of vegetation 07/30 - Had hemilaminectomy, evac of epidural abscess and resection of degenerated herniated disc Antibiotics Cefepime Levaquin Vanco Lines PIV Past Medical History chronic back pain sciatica migraines 2 pregnancies, and 2 spontaneous vaginal delivery Previous HIV testing negative, last one probably in the last 6-12 months done in the [facility] Allergies: Coded Allergies: Dimetapp (Verified Allergy, Severe, Hives, 11/21/15) Objective . Vital Signs Date Time Temp Pulse Resp B/P Pulse Ox O2 Delivery O2 Flow Rate FiO2 08/05/16 08:00 97.1 76 17 107/67 99 08/05/16 05:37 96.7 84 19 119/75 100 08/05/16 00:27 98.6 95 18 102/59 100 08/04/16 20:57 98.4 81 20 123/65 100 08/04/16 19:10 18 08/04/16 17:13 98.6 92 20 133/80 100 08/04/16 14:20 20 08/04/16 12:36 97.8 86 20 97/59 100 08/04/16 08/04/16 08/05/16 15:00 23:00 07:00 Intake Total 1320 ml 1155 ml Output Total 700 ml Balance 620 ml 1155 ml Intake Oral 1320 ml IV Total 1155 ml Output Urine Total 700 ml # Voids 4 2 # Bowel Movements 1 1 . Laboratory Tests Test 08/04/16 07:08 Creatinine 0.47 MG/DL Estimat Glomerular Filtration 150 ML/MIN Rate Imaging Last Impressions Lumbar Spine MRI 07/30/16 0000 Signed Impressions: Service Date/Time: July 09:15 - CONCLUSION: 1. Acute discitis and associated osteomyelitis involving the L5-S1 level and the L5 and S1 vertebral bodies with moderate-sized anterior epidural abscess extending from the top of L5 to the bottom of S1 centrally and within the left paracentral region. The epidural abscess appears to impinge upon the left S1 nerve root and effaces the left anterior lateral aspect of the thecal sac at this level. 2. Moderate bilateral foraminal narrowing at L5-S1 secondary to diffuse disc bulge and facet joint hypertrophy bilaterally. 3. Minimal bilateral foraminal narrowing at L2-3 and L3-4. Vincent Olsen MD Lumbar Spine X-Ray 07/28/16 0000 Signed Impressions: Service Date/Time: Thursday, July 28, 2016 18:52 - CONCLUSION: 1. No acute findings. Degenerative change as above. Ovidio Mac MD Abdomen/Pelvis CT 07/27/16 1623 Signed Impressions: Service Date/Time: Wednesday, July 27, 2016 19:04 - CONCLUSION: 1. Left lower lobe consolidation medially most characteristic of pneumonia. Right lung is clear. 2. Moderate constipation with ileus. 3. No renal calculi or evidence for obstructive uropathy. 4. Bladder mildly distended. No bladder calculi. Ovidio Mac MD Chest X-Ray 07/27/16 0000 Signed Impressions: Service Date/Time: Wednesday, July 27, 2016 20:57 - CONCLUSION: No acute disease. Ovidio Mac MD Physical Exam GENERAL: awake and alert, not in respiratory distress. SKIN: Warm and moist, no generalized rash. No embolic lesions. She has some track hernandez in her upper extremities. HEENT: Pale conjunctivae, no petechia or hemorrhage. No scleral icterus. Moist oral mucosa. Throat without erythema or exudate. NECK: Has some cervical lymphadenopathy. Supple, nontender, no meningeal signs. CARDIOVASCULAR: Regular rate and rhythm without murmurs, gallops, or rubs. RESPIRATORY: Clear to auscultation. Breath sounds equal bilaterally. No wheezes , rales, or rhonchi. GASTROINTESTINAL: Abdomen soft, non-tender, nondistended. No hepato-splenomegaly , or palpable masses. Bowel sounds are present and normoactive. No guarding. MUSCULOSKELETAL: Extremities without clubbing, cyanosis, or edema. No joint tenderness, effusion, or edema noted. No calf tenderness. Negative Homans sign bilaterally. NEUROLOGICAL: Non-focal BACK: Incision dry, no redness, has old dried blood LINE: PIV with no evidence of infection Assessment & Plan Remarks IMPRESSION Sepsis on presentation, has Staph hominis (+) BC on admission, patient with IVDU and back pain - Fup BC negative MRI with L5-S1 discitis, osteo and epidural abscess - S/P surgery - C/S with PSAE (+) UA, no significant symptoms Known active IVDU RECOMMENDATION Follow BC Continue vancomycin - at least 7 days Continue Levaquin Continue Cefepime PICC Monitor progress Will need a long course of IV Abx Will do CT spine at least 2 weeks post op Disposition will be a problem because of her IVDU and she has no insurance coverage Pain control Tamika Leiva MD Aug 05, 2016 12:17
--- NOTE | 2016-08-05 12:41 | HHI.PR ---
Subjective Remarks Complaining of pain and says she can't move much. No fever or chills overnight. No n/v/d/c. Objective Vitals Vital Signs Date Time Temp Pulse Resp B/P Pulse Ox O2 Delivery O2 Flow Rate FiO2 08/05/16 08:00 97.1 76 17 107/67 99 08/05/16 05:37 96.7 84 19 119/75 100 08/05/16 00:27 98.6 95 18 102/59 100 08/04/16 20:57 98.4 81 20 123/65 100 08/04/16 19:10 18 08/04/16 17:13 98.6 92 20 133/80 100 08/04/16 14:20 20 I/O 08/04/16 08/04/16 08/04/16 08/05/16 08/05/16 08/05/16 07:00 15:00 23:00 07:00 15:00 23:00 Intake Total 1320 ml 1155 ml Output Total 600 ml 700 ml Balance -600 ml 620 ml 1155 ml Intake Oral 1320 ml IV Total 1155 ml Output Urine Total 600 ml 700 ml # Voids 4 2 # Bowel Movements 0 1 1 Result Diagram: 08/04/16 0708 Imaging Last Impressions Chest X-Ray 08/03/16 0600 Signed Impressions: Service Date/Time: Wednesday, August 03, 2016 05:43 - CONCLUSION: 1. No acute cardiopulmonary disease. Karlo Vizcarra MD Lumbar Spine X-Ray 07/30/16 0000 Signed Impressions: Service Date/Time: July 21:10 - CONCLUSION: 1. Surgical instruments overlie posterior elements at lumbosacral junction. Ovidio Mac MD Lumbar Spine MRI 07/30/16 0000 Signed Impressions: Service Date/Time: July 09:15 - CONCLUSION: 1. Acute discitis and associated osteomyelitis involving the L5-S1 level and the L5 and S1 vertebral bodies with moderate-sized anterior epidural abscess extending from the top of L5 to the bottom of S1 centrally and within the left paracentral region. The epidural abscess appears to impinge upon the left S1 nerve root and effaces the left anterior lateral aspect of the thecal sac at this level. 2. Moderate bilateral foraminal narrowing at L5-S1 secondary to diffuse disc bulge and facet joint hypertrophy bilaterally. 3. Minimal bilateral foraminal narrowing at L2-3 and L3-4. Vincent Olsen MD Abdomen/Pelvis CT 07/27/16 1623 Signed Impressions: Service Date/Time: Wednesday, July 27, 2016 19:04 - CONCLUSION: 1. Left lower lobe consolidation medially most characteristic of pneumonia. Right lung is clear. 2. Moderate constipation with ileus. 3. No renal calculi or evidence for obstructive uropathy. 4. Bladder mildly distended. No bladder calculi. Ovidio Mac MD Objective Remarks GENERAL: Well-developed well-nourished. In no acute distress. SKIN: Warm and dry. No lesions noted. HEENT: Normocephalic. Pupils equal and round. Mucous membranes pink and moist. CARDIOVASCULAR: Regular rate and rhythm. No murmur appreciated. RESPIRATORY: No accessory muscle use. Clear to auscultation. Breath sounds equal bilaterally. GASTROINTESTINAL: Abdomen soft, non-tender, nondistended. Bowel sounds x4. MUSCULOSKELETAL: Back with 2 dressings c/d/i on lower back after surgery. No obvious deformities. No clubbing or cyanosis. No edema. NEUROLOGICAL: Awake and alert. No focal neurological deficits. Moves upper and lower extremities spontaneously. Normal speech. PSYCHIATRIC: Appropriate mood and affect; insight and judgment normal. A/P Problem List: (1) Bacteremia ICD Code: R78.81 Status: Acute (2) Left lower lobe pneumonia ICD Code: J18.1 Status: Acute (3) IVDU (intravenous drug user) ICD Code: F19.90 Status: Acute Assessment and Plan 36-year-old female with history of IVDU, chronic back pain, sciatica, migraines , presents with a one-week history of back pain. Bacteremia: 2/ blood cultures with gram positive cocci, staph hominis Sepsis on presentation, has Coag Neg Staph(+) BC, patient with IVDU and back pain Repeat blood cultures x2 NTD. ID consulted seen by Dr Leiva . Continue IV Vanco. ESR/CRP elevated. Ordered lumbar spine MRI r/out discitis/ osteomyelitis. JAMIE no endocarditis. MRI with L5-S1 discitis, osteo and epidural abscess- S/P surgery 07/30/16 semilaminectomy, eval of epidural abscess and retention of degenerated herniated disc G/S and C/S negative so far Will need a long course of IV Abx Currently on vancomycin IV and also levaquin for PNA Pain meds per pain scale, hold pain meds if low BP discussed with the patient and the nurse. Flexeril for back pain Community Acquired LLL Pneumonia: Consolidation seen on CT abd. WBC 9.6K upon arrival, afebrile, does not meet sepsis criteria. Continue on Levaquin. Sputum culture pending. ID recommends repeat CXR in a few days. Repeat CXR reviewed. Postsurgical pain, says is not controlled by meds. Will consult palliative care for pain management. Abnormal UA: UA with possible UTI, given IV Rocephin, however urine culture with 50-100K mixed lyndsay, likely contaminants. D/c IV Rocephin. On levaquin for pneumonia as above. low BP. Change IVF to 0.9 NS. Give 1L NS bolus. Oral Candidiasis: Continue Magic Mouthwash 5ml SS qid. IVDU: counseled on cessation. Last use 8days prior to admission. Does not appear to be in withdrawal. Blood cultures positive as above. Tobacco Use: counseled on cessation, nicotine patch prn. PT consult. DVT Prophylaxis: Lovenox Discussed with the patient, nurse, palliative care Problem Qualifiers (1) Left lower lobe pneumonia: Qualified Code: J18.1 - Pneumonia of left lower lobe due to infectious organism Sandra Goodwin MD Aug 05, 2016 12:41
[2016-08-05 16:00] VITALS: BP 117/66; PULSE 88; RESP 18; TEMP 98.6; O2SAT 100
[2016-08-05 19:30] VITALS: BP 101/62; PULSE 89; RESP 18; TEMP 97.9; O2SAT 100
[2016-08-06 00:05] VITALS: BP 120/62; PULSE 99; RESP 18; TEMP 98.1; O2SAT 100
[2016-08-06] MEDS: SODIUM CHLOR 0.9% 1000 ML INJ 1,000 ML IV SCH ×3 (03:30→22:53)
[2016-08-06] MEDS: VANCOMYCIN 1,000 MG/NS 250 ML IV SCH ×6 (04:09→21:17)
[2016-08-06 04:38] VITALS: BP 114/69; PULSE 74; RESP 18; TEMP 97.5; O2SAT 100
[2016-08-06] MEDS: ACETAMINOPHEN/HYDROcodone 325 MG/5 MG TAB PO PRN ×2 (05:08→21:17)
[2016-08-06] MEDS: CYCLOBENZAPRINE HCL 10 MG TAB PO PRN ×2 (05:08→21:17)
[2016-08-06] MEDS: MORPHINE SULFATE 4 MG/ML INJ IV PUSH PRN ×4 (06:38→22:35)
[2016-08-06 07:15] VITALS: BP 93/62; PULSE 79; RESP 18; TEMP 97.1; O2SAT 97
[2016-08-06] MEDS: DOCUSATE SODIUM 50 MG/SENNA 8.6 MG TAB PO SCH (08:57)
[2016-08-06] MEDS: CHOLECALCIFEROL (VIT D3) 1000 UNIT TAB PO SCH (08:57)
[2016-08-06] MEDS: REMOVE OLD PATCH TD SCH (08:57)
[2016-08-06] MEDS: NICOTINE 14 MG/24 HR PATCH TD SCH (08:57)
[2016-08-06] MEDS: guaiFENesin E.R. 600 MG TAB PO SCH ×2 (08:59→21:16)
[2016-08-06] MEDS: MORPHINE SULFATE 30 MG CONTROLLED RELEASE TAB PO SCH ×2 (08:59→21:16)
[2016-08-06] MEDS: SODIUM CHLORIDE 0.9% FLUSH 5 ML FLUSH FLUSH SCH ×2 (09:00→21:17)
[2016-08-06] MEDS: NYSTAT/DIPHENHY/LIDO MOUTHWASH (Adult) 120ML SWISH-SWAL SCH ×4 (09:00→21:18)
[2016-08-06] MEDS: BISACODYL 10 MG SUPP RECTAL SCH (09:00)
--- NOTE | 2016-08-06 10:23 | HHI.HCPN ---
Palliative care service was consulted on this patient. Formal consultations with the goal of assisting in management of acute post-operative pain in patients with aggressive goals is beyond the current staffing capabilities of the palliative care service. Discussed with Dr. Goodwin. We will be happy to discuss any specific questions with you or the team. We certainly recognize that this case presents challenges given the prior history of IV drug abuse. An clinical studies specialist would help in this patient's care if available. Jorge Reza MD Aug 06, 2016 10:23
[2016-08-06 11:00] VITALS: BP 99/63; PULSE 91; RESP 18; TEMP 97.4; O2SAT 100
--- NOTE | 2016-08-06 11:35 | HHI.PR ---
Subjective Remarks Says pain is better controlled today. Says she is able to move more. no n/v/d/ c. No fever or chills overnight. Objective Vitals Vital Signs Date Time Temp Pulse Resp B/P Pulse Ox O2 Delivery O2 Flow Rate FiO2 08/06/16 07:15 97.1 79 18 93/62 97 08/06/16 04:38 97.5 74 18 114/69 100 08/06/16 00:05 98.1 99 18 120/62 100 08/05/16 19:30 97.9 89 18 101/62 100 08/05/16 16:00 98.6 88 18 117/66 100 08/05/16 12:00 96.7 77 16 97/54 100 I/O 08/05/16 08/05/16 08/05/16 08/06/16 08/06/16 08/06/16 07:00 15:00 23:00 07:00 15:00 23:00 Intake Total 1155 ml 480 ml 720 ml Output Total 600 ml Balance 1155 ml 480 ml 120 ml Intake Oral 480 ml 720 ml IV Total 1155 ml Output Urine Total 600 ml # Voids 2 3 1 10 # Bowel Movements 0 Result Diagram: 08/06/16 0617 Imaging Last Impressions Chest X-Ray 08/03/16 06 Signed Impressions: Service Date/Time: Wednesday, August 03, 2016 05:43 - CONCLUSION: 1. No acute cardiopulmonary disease. Karlo Vizcarra MD Lumbar Spine X-Ray 07/30/16 0000 Signed Impressions: Service Date/Time: July 21:10 - CONCLUSION: 1. Surgical instruments overlie posterior elements at lumbosacral junction. Ovidio Mac MD Lumbar Spine MRI 07/30/16 0000 Signed Impressions: Service Date/Time: July 09:15 - CONCLUSION: 1. Acute discitis and associated osteomyelitis involving the L5-S1 level and the L5 and S1 vertebral bodies with moderate-sized anterior epidural abscess extending from the top of L5 to the bottom of S1 centrally and within the left paracentral region. The epidural abscess appears to impinge upon the left S1 nerve root and effaces the left anterior lateral aspect of the thecal sac at this level. 2. Moderate bilateral foraminal narrowing at L5-S1 secondary to diffuse disc bulge and facet joint hypertrophy bilaterally. 3. Minimal bilateral foraminal narrowing at L2-3 and L3-4. Vincent Olsen MD Abdomen/Pelvis CT 07/27/16 1623 Signed Impressions: Service Date/Time: Wednesday, July 27, 2016 19:04 - CONCLUSION: 1. Left lower lobe consolidation medially most characteristic of pneumonia. Right lung is clear. 2. Moderate constipation with ileus. 3. No renal calculi or evidence for obstructive uropathy. 4. Bladder mildly distended. No bladder calculi. Ovidio Mac MD Objective Remarks GENERAL: Well-developed well-nourished. In no acute distress. SKIN: Warm and dry. No lesions noted. HEENT: Normocephalic. Pupils equal and round. Mucous membranes pink and moist. CARDIOVASCULAR: Regular rate and rhythm. No murmur appreciated. RESPIRATORY: No accessory muscle use. Clear to auscultation. Breath sounds equal bilaterally. GASTROINTESTINAL: Abdomen soft, non-tender, nondistended. Bowel sounds x4. MUSCULOSKELETAL: Back with 2 dressings c/d/i on lower back after surgery. No obvious deformities. No clubbing or cyanosis. No edema. NEUROLOGICAL: Awake and alert. No focal neurological deficits. Moves upper and lower extremities spontaneously. Normal speech. PSYCHIATRIC: Appropriate mood and affect; insight and judgment normal. A/P Problem List: (1) Bacteremia ICD Code: R78.81 Status: Acute (2) Left lower lobe pneumonia ICD Code: J18.1 Status: Acute (3) IVDU (intravenous drug user) ICD Code: F19.90 Status: Acute Assessment and Plan 36-year-old female with history of IVDU, chronic back pain, sciatica, migraines , presents with a one-week history of back pain. Bacteremia: 2/ blood cultures with gram positive cocci, staph hominis Sepsis on presentation, has Coag Neg Staph(+) BC, patient with IVDU and back pain Repeat blood cultures x2 NTD. ID consulted seen by Dr Leiva . Continue IV Vanco. ESR/CRP elevated. Ordered lumbar spine MRI r/out discitis/ osteomyelitis. JAMIE no endocarditis. MRI with L5-S1 discitis, osteo and epidural abscess- S/P surgery 07/30/16 semilaminectomy, eval of epidural abscess and retention of degenerated herniated disc G/S and C/S negative so far Will need a long course of IV Abx Currently on vancomycin IV and also levaquin for PNA Pain meds per pain scale, hold pain meds if low BP discussed with the patient and the nurse. Flexeril for back pain Community Acquired LLL Pneumonia: Consolidation seen on CT abd. WBC 9.6K upon arrival, afebrile, does not meet sepsis criteria. Continue on Levaquin. Sputum culture pending. ID recommends repeat CXR in a few days. Repeat CXR reviewed. Postsurgical pain, says is not controlled by meds. Will consult palliative care for pain management. Abnormal UA: UA with possible UTI, given IV Rocephin, however urine culture with 50-100K mixed lyndsay, likely contaminants. D/c IV Rocephin. On levaquin for pneumonia as above. low BP. Change IVF to 0.9 NS. Give 1L NS bolus. Oral Candidiasis: Continue Magic Mouthwash 5ml SS qid. IVDU: counseled on cessation. Last use 8days prior to admission. Does not appear to be in withdrawal. Blood cultures positive as above. Tobacco Use: counseled on cessation, nicotine patch prn. PT consult. DVT Prophylaxis: Lovenox Discussed with the patient, nurse, palliative care Problem Qualifiers (1) Left lower lobe pneumonia: Qualified Code: J18.1 - Pneumonia of left lower lobe due to infectious organism Sandra Goodwin MD Aug 06, 2016 11:35
[2016-08-06] MEDS: LEVOFLOXACIN 750 MG TAB PO SCH (11:39)
[2016-08-06] MEDS: CEFEPIME INJ 2,000 MG in SODIUM CHLORIDE 0.9% INJ 100 ML IV SCH ×2 (11:40→22:53)
[2016-08-06 15:15] VITALS: BP 114/71; PULSE 107; RESP 18; TEMP 97.5; O2SAT 97
--- NOTE | 2016-08-06 16:32 | RADRPT ---
EXAM DATE/TIME: 08/06/2016 16:17 [facility] COMPARISON: CHEST SINGLE AP, August 03, 2016, 5:43. INDICATIONS : Post picc line placement. MEDICAL HISTORY : seizures SURGICAL HISTORY : lumbar spine surgery. ENCOUNTER: Initial ACUITY: 1 week PAIN SCORE: Non-responsive. LOCATION: Bilateral chest FINDINGS: A single view of the chest demonstrates the lungs to be symmetrically aerated without evidence of mas s, infiltrate or effusion. The cardiomediastinal contours are unremarkable. Osseous structures are intact. Right upper extremity PICC line with the tip projecting over the central venous system. CONCLUSION: 1. Right upper extremity PICC line with the tip projecting over the central venous system. 2. No acute cardiopulmonary process. Bruno Jin MD on August 06, 2016 at 16:29 Board Certified Radiologist. This report was verified electronically.
[2016-08-06 20:00] VITALS: BP 107/79; PULSE 97; RESP 18; TEMP 97.6; O2SAT 100
[2016-08-07] VITALS: BP 106/74; PULSE 96; RESP 18; TEMP 97.6; O2SAT 100
[2016-08-07] MEDS: ACETAMINOPHEN/HYDROcodone 325 MG/5 MG TAB PO PRN ×5 (00:57→23:34)
[2016-08-07] MEDS: MORPHINE SULFATE 4 MG/ML INJ IV PUSH PRN ×5 (03:05→22:01)
[2016-08-07] MEDS: VANCOMYCIN 1,000 MG/NS 250 ML IV SCH ×6 (03:05→21:44)
[2016-08-07 04:00] VITALS: BP 110/72; PULSE 90; RESP 18; TEMP 97.6; O2SAT 100
[2016-08-07] MEDS: CYCLOBENZAPRINE HCL 10 MG TAB PO PRN ×3 (05:22→21:41)
[2016-08-07 08:26] VITALS: BP 109/64; PULSE 77; RESP 18; TEMP 96.3; O2SAT 100
[2016-08-07] MEDS: SODIUM CHLORIDE 0.9% FLUSH 5 ML FLUSH FLUSH SCH ×2 (09:00→21:00)
[2016-08-07] MEDS: CHOLECALCIFEROL (VIT D3) 1000 UNIT TAB PO SCH (09:00)
[2016-08-07] MEDS: REMOVE OLD PATCH TD SCH (09:00)
[2016-08-07] MEDS: NYSTAT/DIPHENHY/LIDO MOUTHWASH (Adult) 120ML SWISH-SWAL SCH ×2 (09:00→21:42)
[2016-08-07] MEDS: MORPHINE SULFATE 30 MG CONTROLLED RELEASE TAB PO SCH ×2 (09:47→21:41)
[2016-08-07] MEDS: guaiFENesin E.R. 600 MG TAB PO SCH ×2 (09:47→21:41)
[2016-08-07] MEDS: LEVOFLOXACIN 750 MG TAB PO SCH (09:48)
[2016-08-07] MEDS: DOCUSATE SODIUM 50 MG/SENNA 8.6 MG TAB PO SCH (09:48)
[2016-08-07] MEDS: NICOTINE 14 MG/24 HR PATCH TD SCH (09:49)
[2016-08-07] MEDS: BISACODYL 10 MG SUPP RECTAL SCH (09:51)
--- NOTE | 2016-08-07 10:15 | HHI.IDPN ---
Subjective Subjective Remarks Notes reviewed No fever Main problem is pain control Has done some PT when pain manageable C/S from OR with rare PSAE BC on admission with Staph hominis Repeat BC negative so far TTE report noted, no mention of vegetation 07/30 - Had hemilaminectomy, evac of epidural abscess and resection of degenerated herniated disc Antibiotics Cefepime Vanco Levaquin Lines PIV Past Medical History chronic back pain sciatica migraines 2 pregnancies, and 2 spontaneous vaginal delivery Previous HIV testing negative, last one probably in the last 6-12 months done in the [facility] Allergies: Coded Allergies: Dimetapp (Verified Allergy, Severe, Hives, 11/21/15) Objective . Vital Signs Date Time Temp Pulse Resp B/P Pulse Ox O2 Delivery O2 Flow Rate FiO2 08/07/16 08:26 96.3 77 18 109/64 100 08/07/16 06:58 20 08/07/16 06:16 20 08/07/16 04:00 97.6 90 18 110/72 100 08/07/16 00:00 97.6 96 18 106/74 100 08/06/16 22:17 20 08/06/16 20:00 97.6 97 18 107/79 100 08/06/16 18:28 08/06/16 15:15 97.5 107 18 114/71 97 08/06/16 11:00 97.4 91 18 99/63 100 08/06/16 08/06/16 08/07/16 15:00 23:00 07:00 Intake Total 1380 ml 1200 ml Balance 1380 ml 1200 ml Intake Oral 480 ml IV Total 900 ml 1200 ml # Voids 7 # Bowel Movements 0 . Laboratory Tests Test 08/06/16 06:17 Creatinine 0.57 MG/DL Estimat Glomerular Filtration 120 ML/MIN Rate Imaging Last Impressions Lumbar Spine MRI 07/30/16 0000 Signed Impressions: Service Date/Time: July 09:15 - CONCLUSION: 1. Acute discitis and associated osteomyelitis involving the L5-S1 level and the L5 and S1 vertebral bodies with moderate-sized anterior epidural abscess extending from the top of L5 to the bottom of S1 centrally and within the left paracentral region. The epidural abscess appears to impinge upon the left S1 nerve root and effaces the left anterior lateral aspect of the thecal sac at this level. 2. Moderate bilateral foraminal narrowing at L5-S1 secondary to diffuse disc bulge and facet joint hypertrophy bilaterally. 3. Minimal bilateral foraminal narrowing at L2-3 and L3-4. Vincent Olsen MD Lumbar Spine X-Ray 07/28/16 0000 Signed Impressions: Service Date/Time: Thursday, July 28, 2016 18:52 - CONCLUSION: 1. No acute findings. Degenerative change as above. Ovidio Mac MD Abdomen/Pelvis CT 07/27/16 1623 Signed Impressions: Service Date/Time: Wednesday, July 27, 2016 19:04 - CONCLUSION: 1. Left lower lobe consolidation medially most characteristic of pneumonia. Right lung is clear. 2. Moderate constipation with ileus. 3. No renal calculi or evidence for obstructive uropathy. 4. Bladder mildly distended. No bladder calculi. Ovidio Mac MD Chest X-Ray 07/27/16 0000 Signed Impressions: Service Date/Time: Wednesday, July 27, 2016 20:57 - CONCLUSION: No acute disease. Ovidio Mac MD Physical Exam GENERAL: awake and alert, not in respiratory distress. SKIN: Warm and moist, no generalized rash. No embolic lesions. She has some track hernandez in her upper extremities. HEENT: Pale conjunctivae. No scleral icterus. Moist oral mucosa. Throat without erythema or exudate. NECK: Has some cervical lymphadenopathy. Supple, nontender, no meningeal signs. CARDIOVASCULAR: Regular rate and rhythm without murmurs, gallops, or rubs. RESPIRATORY: Clear to auscultation. Breath sounds equal bilaterally. No wheezes , rales, or rhonchi. GASTROINTESTINAL: Abdomen soft, non-tender, nondistended. No hepato-splenomegaly , or palpable masses. Bowel sounds are present and normoactive. No guarding. MUSCULOSKELETAL: Extremities without clubbing, cyanosis, or edema. No joint tenderness, effusion, or edema noted. No calf tenderness. NEUROLOGICAL: Non-focal BACK: Incision dry, no redness, has old dried blood LINE: PICC with no evidence of infection Assessment & Plan Remarks IMPRESSION Sepsis on presentation, has Staph hominis (+) BC on admission, patient with IVDU and back pain - Fup BC negative MRI with L5-S1 discitis, osteo and epidural abscess - S/P surgery - C/S with PSAE (+) UA, no significant symptoms Known active IVDU RECOMMENDATION Follow BC Continue vancomycin - continue this and I will reassess on Wednesday Continue Levaquin Continue Cefepime Monitor progress Will need a long course of IV Abx Will do CT spine at least 2 weeks post op Aug 12 Disposition will be a problem because of her IVDU and she has no insurance coverage Pain control Tamika Leiva MD Aug 07, 2016 10:15
[2016-08-07] MEDS: CEFEPIME INJ 2,000 MG in SODIUM CHLORIDE 0.9% INJ 100 ML IV SCH ×2 (11:58→23:31)
[2016-08-07 12:38] VITALS: BP 112/62; PULSE 95; RESP 18; TEMP 96.6; O2SAT 100
--- NOTE | 2016-08-07 13:41 | HHI.PR ---
Subjective Remarks Follow-up bacteremia, postsurgical pain, L5-S1 discitis/osteomyelitis. The patient continues to report significant pain in her low back. She is reporting that the back spasms are the worst part of the pain. She is requesting a change in muscle relaxer. Denies chest pain, dyspnea, nausea, vomiting, diarrhea, constipation. Objective Vitals Vital Signs Date Time Temp Pulse Resp B/P Pulse Ox O2 Delivery O2 Flow Rate FiO2 08/07/16 12:38 96.6 95 18 112/62 100 08/07/16 08:26 96.3 77 18 109/64 100 08/07/16 06:58 20 08/07/16 06:16 20 08/07/16 04:00 97.6 90 18 110/72 100 08/07/16 00:00 97.6 96 18 106/74 100 08/06/16 22:17 20 08/06/16 20:00 97.6 97 18 107/79 100 08/06/16 18:28 08/06/16 15:15 97.5 107 18 114/71 97 I/O 08/06/16 08/06/16 08/06/16 08/07/16 08/07/16 08/07/16 07:00 15:00 23:00 07:00 15:00 23:00 Intake Total 1380 ml 1200 ml Balance 1380 ml 1200 ml Intake Oral 480 ml IV Total 900 ml 1200 ml # Voids 10 7 1 # Bowel Movements 0 Result Diagram: 08/06/16 0617 Imaging Last Impressions Chest X-Ray 08/06/16 0000 Signed Impressions: Service Date/Time: July 16:17 - CONCLUSION: 1. Right upper extremity PICC line with the tip projecting over the central venous system. 2. No acute cardiopulmonary process. Bruno Jin MD Lumbar Spine X-Ray 07/30/16 0000 Signed Impressions: Service Date/Time: July 21:10 - CONCLUSION: 1. Surgical instruments overlie posterior elements at lumbosacral junction. Ovidio Mac MD Lumbar Spine MRI 07/30/16 0000 Signed Impressions: Service Date/Time: July 09:15 - CONCLUSION: 1. Acute discitis and associated osteomyelitis involving the L5-S1 level and the L5 and S1 vertebral bodies with moderate-sized anterior epidural abscess extending from the top of L5 to the bottom of S1 centrally and within the left paracentral region. The epidural abscess appears to impinge upon the left S1 nerve root and effaces the left anterior lateral aspect of the thecal sac at this level. 2. Moderate bilateral foraminal narrowing at L5-S1 secondary to diffuse disc bulge and facet joint hypertrophy bilaterally. 3. Minimal bilateral foraminal narrowing at L2-3 and L3-4. Vincent Olsen MD Abdomen/Pelvis CT 07/27/16 1623 Signed Impressions: Service Date/Time: Wednesday, July 27, 2016 19:04 - CONCLUSION: 1. Left lower lobe consolidation medially most characteristic of pneumonia. Right lung is clear. 2. Moderate constipation with ileus. 3. No renal calculi or evidence for obstructive uropathy. 4. Bladder mildly distended. No bladder calculi. Ovidio Mac MD Objective Remarks General: No acute distress. Heart: Regular rate and rhythm. No murmur. Lungs: Clear to auscultation bilaterally. No wheezes, rales, or rhonchi. Breathing is nonlabored. Abdomen: Soft, nontender, nondistended. Extremities: No lower extremity edema. Psych: Alert and oriented. Procedures 07/30/16 left L5 semi-hemilaminectomy, evacuation of epidural abscess, resection of degenerative herniated disc Urinary Catheter: No Vascular Central Line Catheter: Yes Assessment to: Continue Line: PICC A/P Problem List: (1) Bacteremia ICD Code: R78.81 Status: Acute (2) Left lower lobe pneumonia ICD Code: J18.1 Status: Acute (3) IVDU (intravenous drug user) ICD Code: F19.90 Status: Acute (4) Discitis of lumbosacral region ICD Code: M46.47 Status: Acute (5) Abscess in epidural space of lumbar spine ICD Code: G06.1 Status: Acute (6) Tobacco abuse ICD Code: Z72.0 Status: Chronic Assessment and Plan 1. Bacteremia, L5-S1 discitis/osteomyelitis with epidural abscess: Status post surgical intervention by neurosurgery on 07/30/16. Appreciate infectious disease recommendations. Continue IV antibiotics. 2. Postsurgical back pain: Continue pain medications. 3. Abnormal UA: Possible UTI. Urine culture shows mixed lyndsay, likely contaminants. Rocephin discontinued. 4. Pneumonia: Continue Levaquin. 5. IV drug abuse: Counseled. Most recent use was 8 days prior to admission. 6. Tobacco abuse: Counseled quit smoking. Nicotine patch as needed. 7. DVT prophylaxis: Lovenox. Problem Qualifiers (1) Left lower lobe pneumonia: Qualified Code: J18.1 - Pneumonia of left lower lobe due to infectious organism Guevara Perrin MD Aug 07, 2016 13:41
[2016-08-07 15:57] VITALS: BP 110/66; PULSE 93; RESP 18; TEMP 97.1; O2SAT 100
[2016-08-07] MEDS: SODIUM CHLOR 0.9% 1000 ML INJ 1,000 ML IV SCH (19:30)
[2016-08-07 20:00] VITALS: BP 111/58; PULSE 94; RESP 18; TEMP 98.2; O2SAT 99
[2016-08-08] VITALS: BP 112/60; PULSE 90; RESP 18; TEMP 98.4; O2SAT 99
[2016-08-08] MEDS: MORPHINE SULFATE 4 MG/ML INJ IV PUSH PRN ×6 (01:41→23:09)
[2016-08-08 04:00] VITALS: BP 114/64; PULSE 92; RESP 18; TEMP 98.4; O2SAT 99
[2016-08-08] MEDS: VANCOMYCIN 1,000 MG/NS 250 ML IV SCH ×6 (05:09→21:27)
[2016-08-08] MEDS: CYCLOBENZAPRINE HCL 10 MG TAB PO PRN ×3 (05:17→21:28)
[2016-08-08] MEDS: SODIUM CHLOR 0.9% 1000 ML INJ 1,000 ML IV SCH ×2 (05:18→14:24)
[2016-08-08] MEDS: ACETAMINOPHEN/HYDROcodone 325 MG/5 MG TAB PO PRN ×4 (07:41→21:29)
[2016-08-08 08:00] VITALS: BP 115/71; PULSE 79; RESP 16; TEMP 97.2; O2SAT 100
[2016-08-08] MEDS: NYSTAT/DIPHENHY/LIDO MOUTHWASH (Adult) 120ML SWISH-SWAL SCH ×4 (08:30→21:28)
[2016-08-08] MEDS: MORPHINE SULFATE 30 MG CONTROLLED RELEASE TAB PO SCH ×2 (08:30→21:27)
[2016-08-08] MEDS: SODIUM CHLORIDE 0.9% FLUSH 5 ML FLUSH FLUSH SCH ×2 (08:31→21:00)
[2016-08-08] MEDS: DOCUSATE SODIUM 50 MG/SENNA 8.6 MG TAB PO SCH (08:31)
[2016-08-08] MEDS: guaiFENesin E.R. 600 MG TAB PO SCH ×2 (08:31→21:27)
[2016-08-08] MEDS: CHOLECALCIFEROL (VIT D3) 1000 UNIT TAB PO SCH (08:31)
[2016-08-08] MEDS: BISACODYL 10 MG SUPP RECTAL SCH (08:31)
[2016-08-08] MEDS: NICOTINE 14 MG/24 HR PATCH TD SCH (08:32)
[2016-08-08] MEDS: REMOVE OLD PATCH TD SCH (08:32)
[2016-08-08] MEDS: CEFEPIME INJ 2,000 MG in SODIUM CHLORIDE 0.9% INJ 100 ML IV SCH ×2 (11:03→23:09)
[2016-08-08] MEDS: LEVOFLOXACIN 750 MG TAB PO SCH (11:03)
[2016-08-08 12:00] VITALS: BP 98/53; PULSE 82; RESP 16; TEMP 96.9; O2SAT 99
--- NOTE | 2016-08-08 14:50 | HHI.PR ---
Subjective Remarks Follow-up bacteremia, postsurgical pain, L5-S1 discitis/osteomyelitis. Patient states that she feels "about the same" as yesterday. Reporting constipation and abdominal bloating. Objective Vitals Vital Signs Date Time Temp Pulse Resp B/P Pulse Ox O2 Delivery O2 Flow Rate FiO2 08/08/16 14:08 18 08/08/16 12:00 96.9 82 16 98/53 99 08/08/16 09:12 18 08/08/16 08:23 16 08/08/16 08:00 97.2 79 16 115/71 100 08/08/16 04:00 98.4 92 18 114/64 99 08/08/16 00:00 98.4 90 18 112/60 99 08/07/16 20:00 98.2 94 18 111/58 99 08/07/16 15:57 97.1 93 18 110/66 100 I/O 08/07/16 08/07/16 08/07/16 08/08/16 08/08/16 08/08/16 07:00 15:00 23:00 07:00 15:00 23:00 Intake Total 1200 ml 240 ml 600 ml Balance 1200 ml 240 ml 600 ml Intake Oral 240 ml 600 ml IV Total 1200 ml # Voids 1 4 Result Diagram: 08/08/16 0730 Imaging Last Impressions Chest X-Ray 08/06/16 0000 Signed Impressions: Service Date/Time: July 16:17 - CONCLUSION: 1. Right upper extremity PICC line with the tip projecting over the central venous system. 2. No acute cardiopulmonary process. Bruno Jin MD Lumbar Spine X-Ray 07/30/16 0000 Signed Impressions: Service Date/Time: July 21:10 - CONCLUSION: 1. Surgical instruments overlie posterior elements at lumbosacral junction. Ovidio Mac MD Lumbar Spine MRI 07/30/16 0000 Signed Impressions: Service Date/Time: July 09:15 - CONCLUSION: 1. Acute discitis and associated osteomyelitis involving the L5-S1 level and the L5 and S1 vertebral bodies with moderate-sized anterior epidural abscess extending from the top of L5 to the bottom of S1 centrally and within the left paracentral region. The epidural abscess appears to impinge upon the left S1 nerve root and effaces the left anterior lateral aspect of the thecal sac at this level. 2. Moderate bilateral foraminal narrowing at L5-S1 secondary to diffuse disc bulge and facet joint hypertrophy bilaterally. 3. Minimal bilateral foraminal narrowing at L2-3 and L3-4. Vincent Olsen MD Abdomen/Pelvis CT 07/27/16 1623 Signed Impressions: Service Date/Time: Wednesday, July 27, 2016 19:04 - CONCLUSION: 1. Left lower lobe consolidation medially most characteristic of pneumonia. Right lung is clear. 2. Moderate constipation with ileus. 3. No renal calculi or evidence for obstructive uropathy. 4. Bladder mildly distended. No bladder calculi. Ovidio Mac MD Objective Remarks Examined in presence of the nurse. General: No acute distress. Heart: Regular rate and rhythm. No murmur. Lungs: Clear to auscultation bilaterally. No wheezes, rales, or rhonchi. Breathing is nonlabored. Abdomen: Soft, nontender, nondistended. Extremities: No lower extremity edema. Psych: Alert and oriented. Procedures 07/30/16 left L5 semi-hemilaminectomy, evacuation of epidural abscess, resection of degenerative herniated disc Urinary Catheter: No Vascular Central Line Catheter: Yes Assessment to: Continue Line: PICC A/P Problem List: (1) Bacteremia ICD Code: R78.81 Status: Acute (2) Left lower lobe pneumonia ICD Code: J18.1 Status: Acute (3) IVDU (intravenous drug user) ICD Code: F19.90 Status: Acute (4) Discitis of lumbosacral region ICD Code: M46.47 Status: Acute (5) Abscess in epidural space of lumbar spine ICD Code: G06.1 Status: Acute (6) Tobacco abuse ICD Code: Z72.0 Status: Chronic Assessment and Plan 1. Bacteremia, L5-S1 discitis/osteomyelitis with epidural abscess: Status post surgical intervention by neurosurgery on 07/30/16. Appreciate infectious disease recommendations. Continue IV antibiotics. 2. Postsurgical back pain: Continue pain medications, Flexeril. 3. Abnormal UA: Possible UTI. Urine culture shows mixed lyndsay, likely contaminants. Rocephin discontinued. 4. Pneumonia: Continue Levaquin. 5. IV drug abuse: Counseled. Most recent use was reportedly 8 days prior to admission. 6. Tobacco abuse: Counseled quit smoking. Nicotine patch as needed. 7. DVT prophylaxis: Lovenox. 8. Constipation: Continue bowel regimen. Problem Qualifiers (1) Left lower lobe pneumonia: Qualified Code: J18.1 - Pneumonia of left lower lobe due to infectious organism Guevara Perrin MD Aug 08, 2016 14:50
[2016-08-08 16:01] VITALS: BP 108/73; PULSE 94; RESP 16; TEMP 96.7; O2SAT 100
[2016-08-08] MEDS ORDERED: PHARMACY ORDERED LAB XX ONE (19:45)
[2016-08-08 20:00] VITALS: BP 109/58; PULSE 101; RESP 20; TEMP 96.7; O2SAT 100
[2016-08-08] MEDS: SODIUM CHLORIDE 0.9% FLUSH 5 ML FLUSH FLUSH PRN (23:07)
[2016-08-09] VITALS: BP 126/70; PULSE 89; RESP 20; TEMP 98.1; O2SAT 98
[2016-08-09] MEDS: ACETAMINOPHEN/HYDROcodone 325 MG/5 MG TAB PO PRN ×6 (01:46→22:06)
[2016-08-09 04:00] VITALS: BP 99/55; PULSE 71; RESP 20; TEMP 96.3; O2SAT 97
[2016-08-09] MEDS: MORPHINE SULFATE 4 MG/ML INJ IV PUSH PRN ×5 (04:12→19:51)
[2016-08-09] MEDS: VANCOMYCIN 1,000 MG/NS 250 ML IV SCH ×6 (04:15→19:47)
[2016-08-09] MEDS: SODIUM CHLOR 0.9% 1000 ML INJ 1,000 ML IV SCH ×3 (04:20→19:52)
[2016-08-09] MEDS: CYCLOBENZAPRINE HCL 10 MG TAB PO PRN ×3 (05:48→22:07)
[2016-08-09] MEDS: NYSTAT/DIPHENHY/LIDO MOUTHWASH (Adult) 120ML SWISH-SWAL SCH ×4 (08:04→19:49)
[2016-08-09] MEDS: SODIUM CHLORIDE 0.9% FLUSH 5 ML FLUSH FLUSH SCH ×2 (08:04→19:53)
[2016-08-09] MEDS: CHOLECALCIFEROL (VIT D3) 1000 UNIT TAB PO SCH (08:05)
[2016-08-09] MEDS: guaiFENesin E.R. 600 MG TAB PO SCH ×2 (08:05→19:48)
[2016-08-09] MEDS: MORPHINE SULFATE 30 MG CONTROLLED RELEASE TAB PO SCH ×2 (08:06→19:48)
[2016-08-09] MEDS: BISACODYL 10 MG SUPP RECTAL SCH (08:07)
[2016-08-09] MEDS: DOCUSATE SODIUM 50 MG/SENNA 8.6 MG TAB PO SCH (08:07)
[2016-08-09] MEDS: REMOVE OLD PATCH TD SCH (08:07)
[2016-08-09] MEDS: NICOTINE 14 MG/24 HR PATCH TD SCH (08:07)
[2016-08-09 08:10] VITALS: BP 103/68; PULSE 77; RESP 18; TEMP 97.2; O2SAT 97
[2016-08-09] MEDS: LEVOFLOXACIN 750 MG TAB PO SCH (09:56)
[2016-08-09] MEDS: CEFEPIME INJ 2,000 MG in SODIUM CHLORIDE 0.9% INJ 100 ML IV SCH ×2 (09:56→22:06)
[2016-08-09 12:10] VITALS: BP 80/46; PULSE 68; RESP 18; TEMP 97.5; O2SAT 100
--- NOTE | 2016-08-09 13:35 | HHI.PR ---
Subjective Remarks Follow up pain control, low BP. Patient states that she has had severe pain in her low back for the last 2 days. She did not mention this yesterday when I examined her. The nurse, who is present for my examination and was also present yesterday, confirms that the patient had not reported this previously. Patient states that her pain is better now that she is lying still. Objective Vitals Vital Signs Date Time Temp Pulse Resp B/P Pulse Ox O2 Delivery O2 Flow Rate FiO2 08/09/16 12:10 97.5 68 18 80/46 100 08/09/16 08:10 97.2 77 18 103/68 97 08/09/16 07:05 18 08/09/16 04:00 96.3 71 20 99/55 97 08/09/16 00:00 98.1 89 20 126/70 98 08/08/16 20:00 96.7 101 20 109/58 100 08/08/16 16:01 96.7 94 16 108/73 100 08/08/16 14:08 18 I/O 08/08/16 08/08/16 08/08/16 08/09/16 08/09/16 08/09/16 07:00 15:00 23:00 07:00 15:00 23:00 Intake Total 600 ml 600 ml 240 ml 240 ml Balance 600 ml 600 ml 240 ml 240 ml Intake Oral 600 ml 600 ml 240 ml 240 ml # Voids 4 6 1 4 # Bowel Movements 1 0 0 Result Diagram: 08/08/16 0730 Imaging Last Impressions Chest X-Ray 08/06/16 0000 Signed Impressions: Service Date/Time: July 16:17 - CONCLUSION: 1. Right upper extremity PICC line with the tip projecting over the central venous system. 2. No acute cardiopulmonary process. Bruno Jin MD Lumbar Spine X-Ray 07/30/16 0000 Signed Impressions: Service Date/Time: July 21:10 - CONCLUSION: 1. Surgical instruments overlie posterior elements at lumbosacral junction. Ovidio Mac MD Lumbar Spine MRI 07/30/16 0000 Signed Impressions: Service Date/Time: July 09:15 - CONCLUSION: 1. Acute discitis and associated osteomyelitis involving the L5-S1 level and the L5 and S1 vertebral bodies with moderate-sized anterior epidural abscess extending from the top of L5 to the bottom of S1 centrally and within the left paracentral region. The epidural abscess appears to impinge upon the left S1 nerve root and effaces the left anterior lateral aspect of the thecal sac at this level. 2. Moderate bilateral foraminal narrowing at L5-S1 secondary to diffuse disc bulge and facet joint hypertrophy bilaterally. 3. Minimal bilateral foraminal narrowing at L2-3 and L3-4. Vincent Olsen MD Abdomen/Pelvis CT 07/27/16 1623 Signed Impressions: Service Date/Time: Wednesday, July 27, 2016 19:04 - CONCLUSION: 1. Left lower lobe consolidation medially most characteristic of pneumonia. Right lung is clear. 2. Moderate constipation with ileus. 3. No renal calculi or evidence for obstructive uropathy. 4. Bladder mildly distended. No bladder calculi. Ovidio Mac MD Objective Remarks Examined in presence of the nurse. General: No acute distress. Heart: Regular rate and rhythm. No murmur. Lungs: Clear to auscultation bilaterally. No wheezes, rales, or rhonchi. Breathing is nonlabored. Abdomen: Soft, nontender, nondistended. Extremities: No lower extremity edema. Psych: Alert and oriented. Procedures 07/30/16 left L5 semi-hemilaminectomy, evacuation of epidural abscess, resection of degenerative herniated disc Urinary Catheter: No Vascular Central Line Catheter: No Line: PICC A/P Problem List: (1) Bacteremia ICD Code: R78.81 Status: Acute (2) Left lower lobe pneumonia ICD Code: J18.1 Status: Acute (3) IVDU (intravenous drug user) ICD Code: F19.90 Status: Acute (4) Discitis of lumbosacral region ICD Code: M46.47 Status: Acute (5) Abscess in epidural space of lumbar spine ICD Code: G06.1 Status: Acute (6) Tobacco abuse ICD Code: Z72.0 Status: Chronic Assessment and Plan 1. Bacteremia, L5-S1 discitis/osteomyelitis with epidural abscess: Status post surgical intervention by neurosurgery on 07/30/16. Appreciate infectious disease recommendations. Continue IV antibiotics. Patient will need repeat CT on . 2. Postsurgical back pain: Continue pain medications, Flexeril. 3. Abnormal UA: Possible UTI. Urine culture shows mixed lyndsay, likely contaminants. Rocephin discontinued. 4. Pneumonia: Continue Levaquin. 5. IV drug abuse: Counseled. Most recent use was reportedly 8 days prior to admission. 6. Tobacco abuse: Counseled quit smoking. Nicotine patch as needed. 7. DVT prophylaxis: Lovenox. 8. Constipation: Continue bowel regimen. 9. Hypotension: Caution with pain medications. Continue IV fluids. Problem Qualifiers (1) Left lower lobe pneumonia: Qualified Code: J18.1 - Pneumonia of left lower lobe due to infectious organism Guevara Perrin MD Aug 09, 2016 13:35
[2016-08-09 16:34] VITALS: BP 124/79; PULSE 91; RESP 18; TEMP 97.9; O2SAT 98
[2016-08-09 20:00] VITALS: BP 106/62; PULSE 83; RESP 20; TEMP 98.5; O2SAT 100
[2016-08-10] VITALS (7 sets, daily range): BP systolic 104–195; BP diastolic 68–91; PULSE 50–101; RESP 17–20; TEMP 97.3–98.8; O2SAT 95–100
[2016-08-10] MEDS: MORPHINE SULFATE 4 MG/ML INJ IV PUSH PRN ×6 (00:04→22:56)
[2016-08-10] MEDS: ACETAMINOPHEN/HYDROcodone 325 MG/5 MG TAB PO PRN ×5 (03:35→20:25)
[2016-08-10] MEDS: VANCOMYCIN 1,000 MG/NS 250 ML IV SCH ×4 (03:35→12:28)
[2016-08-10] MEDS: CYCLOBENZAPRINE HCL 10 MG TAB PO PRN ×2 (06:55→16:15)
[2016-08-10] MEDS: SODIUM CHLOR 0.9% 1000 ML INJ 1,000 ML IV SCH ×3 (06:55→21:13)
[2016-08-10 08:06] LABS: BICARBONATE 29.5 MEQ/L (21.0-32.0); POTASSIUM 4.2 MEQ/L (3.5-5.1)
--- NOTE | 2016-08-10 08:45 | HHI.PR ---
Subjective Remarks Follow up back pain, hypotension. States that she had fewer episodes of muscle spasm overnight. She feels a little better today. Objective Vitals Vital Signs Date Time Temp Pulse Resp B/P Pulse Ox O2 Delivery O2 Flow Rate FiO2 08/10/16 08:04 18 08/10/16 04:00 98.2 85 20 104/68 99 08/10/16 00:00 98.6 101 20 135/70 96 08/09/16 20:00 98.5 83 20 106/62 100 08/09/16 16:34 97.9 91 18 124/79 98 08/09/16 12:10 97.5 68 18 80/46 100 I/O 08/09/16 08/09/16 08/09/16 08/10/16 08/10/16 08/10/16 07:00 15:00 23:00 07:00 15:00 23:00 Intake Total 240 ml 360 ml 1463 ml 480 ml Balance 240 ml 360 ml 1463 ml 480 ml Intake Oral 240 ml 360 ml 480 ml IV Total 1463 ml # Voids 4 3 3 2 # Bowel Movements 0 0 Result Diagram: 08/08/16 0730 Imaging Last Impressions Chest X-Ray 08/06/16 0000 Signed Impressions: Service Date/Time: July 16:17 - CONCLUSION: 1. Right upper extremity PICC line with the tip projecting over the central venous system. 2. No acute cardiopulmonary process. Bruno Jin MD Lumbar Spine X-Ray 07/30/16 0000 Signed Impressions: Service Date/Time: July 21:10 - CONCLUSION: 1. Surgical instruments overlie posterior elements at lumbosacral junction. Ovidio Mac MD Lumbar Spine MRI 07/30/16 0000 Signed Impressions: Service Date/Time: July 09:15 - CONCLUSION: 1. Acute discitis and associated osteomyelitis involving the L5-S1 level and the L5 and S1 vertebral bodies with moderate-sized anterior epidural abscess extending from the top of L5 to the bottom of S1 centrally and within the left paracentral region. The epidural abscess appears to impinge upon the left S1 nerve root and effaces the left anterior lateral aspect of the thecal sac at this level. 2. Moderate bilateral foraminal narrowing at L5-S1 secondary to diffuse disc bulge and facet joint hypertrophy bilaterally. 3. Minimal bilateral foraminal narrowing at L2-3 and L3-4. Vincent Olsen MD Abdomen/Pelvis CT 07/27/16 1623 Signed Impressions: Service Date/Time: Wednesday, July 27, 2016 19:04 - CONCLUSION: 1. Left lower lobe consolidation medially most characteristic of pneumonia. Right lung is clear. 2. Moderate constipation with ileus. 3. No renal calculi or evidence for obstructive uropathy. 4. Bladder mildly distended. No bladder calculi. Ovidio Mac MD Objective Remarks Examined in presence of the nurse. General: No acute distress. Heart: Regular rate and rhythm. No murmur. Lungs: Clear to auscultation bilaterally. No wheezes, rales, or rhonchi. Breathing is nonlabored. Abdomen: Soft, nontender, nondistended. Extremities: No lower extremity edema. Psych: Alert and oriented. Procedures 07/30/16 left L5 semi-hemilaminectomy, evacuation of epidural abscess, resection of degenerative herniated disc Urinary Catheter: No Vascular Central Line Catheter: Yes Assessment to: Continue Line: PICC A/P Problem List: (1) Bacteremia ICD Code: R78.81 Status: Acute (2) Left lower lobe pneumonia ICD Code: J18.1 Status: Acute (3) IVDU (intravenous drug user) ICD Code: F19.90 Status: Acute (4) Discitis of lumbosacral region ICD Code: M46.47 Status: Acute (5) Abscess in epidural space of lumbar spine ICD Code: G06.1 Status: Acute (6) Tobacco abuse ICD Code: Z72.0 Status: Chronic Assessment and Plan 1. Bacteremia, L5-S1 discitis/osteomyelitis with epidural abscess: Status post surgical intervention by neurosurgery on 07/30/16. Appreciate infectious disease recommendations. Continue IV antibiotics. Patient will need repeat CT on . 2. Postsurgical back pain: Continue pain medications, Flexeril. 3. Abnormal UA: Possible UTI. Urine culture shows mixed lyndsay, likely contaminants. Rocephin discontinued. 4. Pneumonia: Continue Levaquin. 5. IV drug abuse: Counseled. Most recent use was reportedly 8 days prior to admission. 6. Tobacco abuse: Counseled quit smoking. Nicotine patch as needed. 7. DVT prophylaxis: Lovenox. 8. Constipation: Continue bowel regimen. 9. Hypotension: BP improved. Continue IV fluids. Caution with pain meds. Problem Qualifiers (1) Left lower lobe pneumonia: Qualified Code: J18.1 - Pneumonia of left lower lobe due to infectious organism Guevara Perrin MD Aug 10, 2016 08:45
[2016-08-10] MEDS: REMOVE OLD PATCH TD SCH (09:00)
[2016-08-10] MEDS: BISACODYL 10 MG SUPP RECTAL SCH (09:00)
[2016-08-10] MEDS: MORPHINE SULFATE 30 MG CONTROLLED RELEASE TAB PO SCH ×2 (09:07→21:17)
[2016-08-10] MEDS: CHOLECALCIFEROL (VIT D3) 1000 UNIT TAB PO SCH (09:07)
[2016-08-10] MEDS: DOCUSATE SODIUM 50 MG/SENNA 8.6 MG TAB PO SCH (09:07)
[2016-08-10] MEDS: guaiFENesin E.R. 600 MG TAB PO SCH ×2 (09:07→21:17)
[2016-08-10] MEDS: NICOTINE 14 MG/24 HR PATCH TD SCH (09:07)
[2016-08-10] MEDS: NYSTAT/DIPHENHY/LIDO MOUTHWASH (Adult) 120ML SWISH-SWAL SCH ×4 (09:08→21:00)
[2016-08-10] MEDS: SODIUM CHLORIDE 0.9% FLUSH 5 ML FLUSH FLUSH SCH ×2 (09:21→21:22)
[2016-08-10] MEDS: CEFEPIME INJ 2,000 MG in SODIUM CHLORIDE 0.9% INJ 100 ML IV SCH ×2 (10:46→22:56)
[2016-08-10] MEDS: LEVOFLOXACIN 750 MG TAB PO SCH (10:46)
--- NOTE | 2016-08-10 16:32 | HHI.IDPN ---
Subjective Subjective Remarks Notes reviewed No fever pain seems to be better C/S from OR with rare PSAE BC on admission with Staph hominis Repeat BC negative so far TTE report noted, no mention of vegetation 07/30 - Had hemilaminectomy, evac of epidural abscess and resection of degenerated herniated disc Antibiotics Cefepime Vanco Levaquin Lines PIV Past Medical History chronic back pain sciatica migraines 2 pregnancies, and 2 spontaneous vaginal delivery Previous HIV testing negative, last one probably in the last 6-12 months done in the outreach clinic Allergies: Coded Allergies: Dimetapp (Verified Allergy, Severe, Hives, 11/21/15) Objective . Vital Signs Date Time Temp Pulse Resp B/P Pulse Ox O2 Delivery O2 Flow Rate FiO2 08/10/16 12:00 98.8 76 18 115/76 99 08/10/16 10:07 19 08/10/16 09:18 19 08/10/16 08:04 18 08/10/16 08:00 97.5 80 18 114/73 96 08/10/16 04:00 98.2 85 20 104/68 99 08/10/16 00:00 98.6 101 20 135/70 96 08/09/16 20:00 98.5 83 20 106/62 100 08/09/16 16:34 97.9 91 18 124/79 98 08/09/16 08/09/16 08/10/16 15:00 23:00 07:00 Intake Total 360 ml 1463 ml 480 ml Balance 360 ml 1463 ml 480 ml Intake Oral 360 ml 480 ml IV Total 1463 ml # Voids 3 3 2 # Bowel Movements 0 . Laboratory Tests Test 08/10/16 07:10 Sodium Level 141 MEQ/L Potassium Level 4.2 MEQ/L Chloride Level 106 MEQ/L Carbon Dioxide Level 29.5 MEQ/L Anion Gap 6 MEQ/L Blood Urea Nitrogen 11 MG/DL Creatinine 0.50 MG/DL Estimat Glomerular Filtration 140 ML/MIN Rate Random Glucose 84 MG/DL Calcium Level 8.7 MG/DL Imaging Last Impressions Lumbar Spine MRI 07/30/16 0000 Signed Impressions: Service Date/Time: July 09:15 - CONCLUSION: 1. Acute discitis and associated osteomyelitis involving the L5-S1 level and the L5 and S1 vertebral bodies with moderate-sized anterior epidural abscess extending from the top of L5 to the bottom of S1 centrally and within the left paracentral region. The epidural abscess appears to impinge upon the left S1 nerve root and effaces the left anterior lateral aspect of the thecal sac at this level. 2. Moderate bilateral foraminal narrowing at L5-S1 secondary to diffuse disc bulge and facet joint hypertrophy bilaterally. 3. Minimal bilateral foraminal narrowing at L2-3 and L3-4. Vincent Olsen MD Lumbar Spine X-Ray 07/28/16 0000 Signed Impressions: Service Date/Time: Thursday, July 28, 2016 18:52 - CONCLUSION: 1. No acute findings. Degenerative change as above. Ovidio Mac MD Abdomen/Pelvis CT 07/27/16 1623 Signed Impressions: Service Date/Time: Wednesday, July 27, 2016 19:04 - CONCLUSION: 1. Left lower lobe consolidation medially most characteristic of pneumonia. Right lung is clear. 2. Moderate constipation with ileus. 3. No renal calculi or evidence for obstructive uropathy. 4. Bladder mildly distended. No bladder calculi. Ovidio Mac MD Chest X-Ray 07/27/16 0000 Signed Impressions: Service Date/Time: Wednesday, July 27, 2016 20:57 - CONCLUSION: No acute disease. Ovidio Mac MD Physical Exam GENERAL: awake and alert, not in respiratory distress. SKIN: Warm and moist, no generalized rash. No embolic lesions. She has some track hernandez in her upper extremities. HEENT: Pale conjunctivae. No scleral icterus. Moist oral mucosa. Throat without erythema or exudate. NECK: Has some cervical lymphadenopathy. Supple, nontender, no meningeal signs. CARDIOVASCULAR: Regular rate and rhythm without murmurs, gallops, or rubs. RESPIRATORY: Clear to auscultation. Breath sounds equal bilaterally. No wheezes , rales, or rhonchi. GASTROINTESTINAL: Abdomen soft, non-tender, nondistended. No hepato-splenomegaly , or palpable masses. Bowel sounds are present and normoactive. No guarding. MUSCULOSKELETAL: Extremities without clubbing, cyanosis, or edema. No joint tenderness, effusion, or edema noted. No calf tenderness. NEUROLOGICAL: Non-focal BACK: Incision dry, no redness, has old dried blood LINE: PICC with no evidence of infection Assessment & Plan Remarks IMPRESSION Sepsis on presentation, has Staph hominis (+) BC on admission, patient with IVDU and back pain - Fup BC negative MRI with L5-S1 discitis, osteo and epidural abscess - S/P surgery - C/S with PSAE (+) UA, no significant symptoms Known active IVDU RECOMMENDATION Follow BC Stop vancomycin Continue Levaquin Continue Cefepime Monitor progress Will need a long course of IV Abx Will do CT spine at least 2 weeks post op Aug 12 Repeat CBC tomorrow Needs labs weekly while on Abx: CBC, creatinine.LFT Tamika Leiva MD Aug 10, 2016 16:32
[2016-08-11] MEDS: ACETAMINOPHEN/HYDROcodone 325 MG/5 MG TAB PO PRN ×3 (01:02→17:40)
[2016-08-11] MEDS: CYCLOBENZAPRINE HCL 10 MG TAB PO PRN ×3 (01:02→21:01)
[2016-08-11] MEDS: MORPHINE SULFATE 4 MG/ML INJ IV PUSH PRN ×3 (03:39→21:11)
[2016-08-11 04:00] VITALS: BP 112/69; PULSE 73; RESP 18; TEMP 96.7; O2SAT 98
[2016-08-11 06:06] LABS: AUTOMATED NEUTROPHIL # 3.4 TH/MM3 (1.8-7.7); BASOPHIL % 0.7 % (0.0-2.0); EOSINOPHIL # 0.1 TH/MM3 (0-0.4); EOSINOPHIL % 1.4 % (0.0-4.0); HEMO FLAGS DIFF FINAL; LYMPH % 29.2 % (9.0-44.0); LYMPHOCYTE # 1.6 TH/MM3 (1.0-4.8); MEAN CELL VOLUME 84.9 FL (80.0-100.0); MEAN CORPUSCULAR HEMOGLOBIN 28.8 PG (27.0-34.0); MEAN CORPUSCULAR HGB CONC 33.9 % (32.0-36.0); MONO % 6.1 % (0.0-8.0); NEUT % 62.6 % (16.0-70.0); PLATELET COUNT 279 TH/MM3 (150-450); RED BLOOD COUNT 3.77 MIL/MM3 (4.00-5.30); RED CELL DISTRIBUTION WIDTH 13.5 % (11.6-17.2); WHITE BLOOD COUNT 5.4 TH/MM3 (4.0-11.0)
[2016-08-11 08:00] VITALS: BP 106/66; PULSE 83; RESP 18; TEMP 97; O2SAT 99
[2016-08-11] MEDS: REMOVE OLD PATCH TD SCH (08:15)
[2016-08-11] MEDS: SODIUM CHLORIDE 0.9% FLUSH 5 ML FLUSH FLUSH SCH ×2 (08:17→21:02)
[2016-08-11] MEDS: NYSTAT/DIPHENHY/LIDO MOUTHWASH (Adult) 120ML SWISH-SWAL SCH ×4 (08:17→21:00)
[2016-08-11] MEDS: guaiFENesin E.R. 600 MG TAB PO SCH ×2 (08:18→21:01)
[2016-08-11] MEDS: CHOLECALCIFEROL (VIT D3) 1000 UNIT TAB PO SCH (08:19)
[2016-08-11] MEDS: MORPHINE SULFATE 30 MG CONTROLLED RELEASE TAB PO SCH ×2 (08:19→21:01)
[2016-08-11] MEDS: BISACODYL 10 MG SUPP RECTAL SCH (08:21)
[2016-08-11] MEDS: NICOTINE 14 MG/24 HR PATCH TD SCH (08:22)
[2016-08-11] MEDS: SODIUM CHLOR 0.9% 1000 ML INJ 1,000 ML IV SCH ×2 (08:40→21:03)
--- NOTE | 2016-08-11 11:11 | HHI.PR ---
Subjective Remarks Follow up back pain, abscess. The patient states that she is feeling slightly better today. Still having back pain. Objective Vitals Vital Signs Date Time Temp Pulse Resp B/P Pulse Ox O2 Delivery O2 Flow Rate FiO2 08/11/16 08:30 18 08/11/16 08:00 97.0 83 18 106/66 99 08/11/16 04:00 96.7 73 18 112/69 98 08/10/16 23:52 98.0 74 17 121/81 100 08/10/16 22:17 18 08/10/16 21:25 18 08/10/16 21:01 98.1 50 17 155/91 98 08/10/16 16:00 97.3 96 19 147/68 95 08/10/16 12:00 98.8 76 18 115/76 99 I/O 08/10/16 08/10/16 08/10/16 08/11/16 08/11/16 08/11/16 07:00 15:00 23:00 07:00 15:00 23:00 Intake Total 480 ml 525 ml 600 ml Balance 480 ml 525 ml 600 ml Intake Oral 480 ml 525 ml 600 ml # Voids 2 4 5 # Bowel Movements 0 0 Result Diagram: 08/11/16 0550 08/10/16 0710 Imaging Last Impressions Chest X-Ray 08/06/16 0000 Signed Impressions: Service Date/Time: July 16:17 - CONCLUSION: 1. Right upper extremity PICC line with the tip projecting over the central venous system. 2. No acute cardiopulmonary process. Bruno Jin MD Lumbar Spine X-Ray 07/30/16 0000 Signed Impressions: Service Date/Time: July 21:10 - CONCLUSION: 1. Surgical instruments overlie posterior elements at lumbosacral junction. Ovidio Mac MD Lumbar Spine MRI 07/30/16 0000 Signed Impressions: Service Date/Time: July 09:15 - CONCLUSION: 1. Acute discitis and associated osteomyelitis involving the L5-S1 level and the L5 and S1 vertebral bodies with moderate-sized anterior epidural abscess extending from the top of L5 to the bottom of S1 centrally and within the left paracentral region. The epidural abscess appears to impinge upon the left S1 nerve root and effaces the left anterior lateral aspect of the thecal sac at this level. 2. Moderate bilateral foraminal narrowing at L5-S1 secondary to diffuse disc bulge and facet joint hypertrophy bilaterally. 3. Minimal bilateral foraminal narrowing at L2-3 and L3-4. Vincent Olsen MD Abdomen/Pelvis CT 07/27/16 1623 Signed Impressions: Service Date/Time: Wednesday, July 27, 2016 19:04 - CONCLUSION: 1. Left lower lobe consolidation medially most characteristic of pneumonia. Right lung is clear. 2. Moderate constipation with ileus. 3. No renal calculi or evidence for obstructive uropathy. 4. Bladder mildly distended. No bladder calculi. Ovidio Mac MD Objective Remarks Examined in presence of the nurse. General: No acute distress. Heart: Regular rate and rhythm. No murmur. Lungs: Clear to auscultation bilaterally. No wheezes, rales, or rhonchi. Breathing is nonlabored. Abdomen: Soft, nontender, nondistended. Extremities: No lower extremity edema. Psych: Alert and oriented. Procedures 07/30/16 left L5 semi-hemilaminectomy, evacuation of epidural abscess, resection of degenerative herniated disc Urinary Catheter: No Vascular Central Line Catheter: Yes Assessment to: Continue Line: PICC A/P Problem List: (1) Bacteremia ICD Code: R78.81 Status: Acute (2) Left lower lobe pneumonia ICD Code: J18.1 Status: Acute (3) IVDU (intravenous drug user) ICD Code: F19.90 Status: Acute (4) Discitis of lumbosacral region ICD Code: M46.47 Status: Acute (5) Abscess in epidural space of lumbar spine ICD Code: G06.1 Status: Acute (6) Tobacco abuse ICD Code: Z72.0 Status: Chronic Assessment and Plan Reviewed/updated 08/11/16. No change. Continue antibiotics, pain meds. 1. Bacteremia, L5-S1 discitis/osteomyelitis with epidural abscess: Status post surgical intervention by neurosurgery on 07/30/16. Appreciate infectious disease recommendations. Continue IV antibiotics. Patient will need repeat CT on . 2. Postsurgical back pain: Continue pain medications, Flexeril. 3. Abnormal UA: Possible UTI. Urine culture shows mixed lyndsay, likely contaminants. Rocephin discontinued. 4. Pneumonia: Continue Levaquin. 5. IV drug abuse: Counseled. Most recent use was reportedly 8 days prior to admission. 6. Tobacco abuse: Counseled quit smoking. Nicotine patch as needed. 7. DVT prophylaxis: Lovenox. 8. Constipation: Continue bowel regimen. 9. Hypotension: BP improved. Continue IV fluids. Problem Qualifiers (1) Left lower lobe pneumonia: Qualified Code: J18.1 - Pneumonia of left lower lobe due to infectious organism Guevara Perrin MD Aug 11, 2016 11:11
[2016-08-11] MEDS: DOCUSATE SODIUM 50 MG/SENNA 8.6 MG TAB PO SCH (11:36)
[2016-08-11] MEDS: LEVOFLOXACIN 750 MG TAB PO SCH (11:36)
[2016-08-11 12:25] VITALS: BP 110/65; PULSE 76; RESP 18; TEMP 96.5; O2SAT 98
[2016-08-11] MEDS: CEFEPIME INJ 2,000 MG in SODIUM CHLORIDE 0.9% INJ 100 ML IV SCH ×2 (12:30→23:00)
[2016-08-11 16:24] VITALS: BP 137/84; PULSE 118; RESP 18; TEMP 98.3; O2SAT 98
[2016-08-11 20:00] VITALS: BP 128/58; PULSE 66; RESP 18; TEMP 97.8; O2SAT 98
[2016-08-11] MEDS: diphenhydrAMINE HCL 25 MG CAP PO SCH (21:01)
[2016-08-12 00:30] VITALS: BP 116/59; PULSE 64; RESP 18; TEMP 98; O2SAT 98
[2016-08-12] MEDS: ACETAMINOPHEN/HYDROcodone 325 MG/5 MG TAB PO PRN ×6 (00:49→21:43)
[2016-08-12] MEDS: MORPHINE SULFATE 4 MG/ML INJ IV PUSH PRN ×6 (01:57→23:19)
[2016-08-12 04:00] VITALS: BP 118/58; PULSE 64; RESP 18; TEMP 97.8; O2SAT 97
[2016-08-12 08:05] VITALS: BP 126/79; PULSE 99; RESP 18; TEMP 96.8; O2SAT 97
[2016-08-12] MEDS: CHOLECALCIFEROL (VIT D3) 1000 UNIT TAB PO SCH (08:50)
[2016-08-12] MEDS: guaiFENesin E.R. 600 MG TAB PO SCH ×2 (08:50→21:42)
[2016-08-12] MEDS: REMOVE OLD PATCH TD SCH (08:50)
[2016-08-12] MEDS: NICOTINE 14 MG/24 HR PATCH TD SCH (08:50)
[2016-08-12] MEDS: MORPHINE SULFATE 30 MG CONTROLLED RELEASE TAB PO SCH ×2 (08:51→21:42)
[2016-08-12] MEDS: CYCLOBENZAPRINE HCL 10 MG TAB PO PRN ×2 (08:51→16:55)
[2016-08-12] MEDS: SODIUM CHLORIDE 0.9% FLUSH 5 ML FLUSH FLUSH SCH ×2 (08:52→21:43)
[2016-08-12] MEDS: IBUPROFEN 600 MG TAB PO SCH ×3 (08:52→16:55)
[2016-08-12] MEDS: DOCUSATE SODIUM 50 MG/SENNA 8.6 MG TAB PO SCH (08:53)
[2016-08-12] MEDS: SODIUM CHLOR 0.9% 1000 ML INJ 1,000 ML IV SCH ×2 (08:54→16:57)
[2016-08-12] MEDS: NYSTAT/DIPHENHY/LIDO MOUTHWASH (Adult) 120ML SWISH-SWAL SCH ×4 (08:54→21:43)
[2016-08-12] MEDS: BISACODYL 10 MG SUPP RECTAL SCH (08:54)
[2016-08-12] MEDS: CEFEPIME INJ 2,000 MG in SODIUM CHLORIDE 0.9% INJ 100 ML IV SCH ×2 (10:28→21:44)
[2016-08-12 12:00] VITALS: BP 103/57; PULSE 74; RESP 20; TEMP 97.3; O2SAT 98
--- NOTE | 2016-08-12 12:34 | HHI.IDPN ---
Subjective Subjective Remarks Notes reviewed No fever Pain seems to be under better control Working with PT C/S from OR with rare PSAE BC on admission with Staph hominis Repeat BC negative so far TTE report noted, no mention of vegetation 07/30 - Had hemilaminectomy, evac of epidural abscess and resection of degenerated herniated disc Antibiotics Cefepime Levaquin Lines PIV Past Medical History chronic back pain sciatica migraines 2 pregnancies, and 2 spontaneous vaginal delivery Previous HIV testing negative, last one probably in the last 6-12 months done in the outreach clinic Allergies: Coded Allergies: Dimetapp (Verified Allergy, Severe, Hives, 11/21/15) Objective . Vital Signs Date Time Temp Pulse Resp B/P Pulse Ox O2 Delivery O2 Flow Rate FiO2 08/12/16 10:38 18 08/12/16 09:51 18 08/12/16 09:51 18 08/12/16 09:51 18 08/12/16 08:05 96.8 99 18 126/79 97 08/12/16 04:00 97.8 64 18 118/58 97 08/12/16 00:30 98.0 64 18 116/59 98 Manual Cuff/Auscultation 08/11/16 20:00 97.8 66 18 128/58 98 08/11/16 16:24 98.3 118 18 137/84 98 08/11/16 08/11/16 08/12/16 15:00 23:00 07:00 Intake Total 3165 ml 480 ml 360 ml Balance 3165 ml 480 ml 360 ml Intake Oral 360 ml 480 ml 360 ml IV Total 2805 ml # Voids 2 2 2 . Laboratory Tests Test 08/11/16 05:50 White Blood Count 5.4 TH/MM3 Red Blood Count 3.77 MIL/MM3 Hemoglobin 10.8 GM/DL Hematocrit 32.0 % Mean Corpuscular Volume 84.9 FL Mean Corpuscular Hemoglobin 28.8 PG Mean Corpuscular Hemoglobin 33.9 % Concent Red Cell Distribution Width 13.5 % Platelet Count 279 TH/MM3 Mean Platelet Volume 7.8 FL Neutrophils (%) (Auto) 62.6 % Lymphocytes (%) (Auto) 29.2 % Monocytes (%) (Auto) 6.1 % Eosinophils (%) (Auto) 1.4 % Basophils (%) (Auto) 0.7 % Neutrophils # (Auto) 3.4 TH/MM3 Lymphocytes # (Auto) 1.6 TH/MM3 Monocytes # (Auto) 0.3 TH/MM3 Eosinophils # (Auto) 0.1 TH/MM3 Basophils # (Auto) 0.0 TH/MM3 CBC Comment DIFF FINAL Differential Comment Imaging Last Impressions Lumbar Spine MRI 07/30/16 0000 Signed Impressions: Service Date/Time: July 09:15 - CONCLUSION: 1. Acute discitis and associated osteomyelitis involving the L5-S1 level and the L5 and S1 vertebral bodies with moderate-sized anterior epidural abscess extending from the top of L5 to the bottom of S1 centrally and within the left paracentral region. The epidural abscess appears to impinge upon the left S1 nerve root and effaces the left anterior lateral aspect of the thecal sac at this level. 2. Moderate bilateral foraminal narrowing at L5-S1 secondary to diffuse disc bulge and facet joint hypertrophy bilaterally. 3. Minimal bilateral foraminal narrowing at L2-3 and L3-4. Vincent Olsen MD Lumbar Spine X-Ray 07/28/16 0000 Signed Impressions: Service Date/Time: Thursday, July 28, 2016 18:52 - CONCLUSION: 1. No acute findings. Degenerative change as above. Ovidio Mac MD Abdomen/Pelvis CT 07/27/16 1623 Signed Impressions: Service Date/Time: Wednesday, July 27, 2016 19:04 - CONCLUSION: 1. Left lower lobe consolidation medially most characteristic of pneumonia. Right lung is clear. 2. Moderate constipation with ileus. 3. No renal calculi or evidence for obstructive uropathy. 4. Bladder mildly distended. No bladder calculi. Ovidio Mac MD Chest X-Ray 07/27/16 0000 Signed Impressions: Service Date/Time: Wednesday, July 27, 2016 20:57 - CONCLUSION: No acute disease. Ovidio Mac MD Physical Exam GENERAL: awake and alert, not in respiratory distress. SKIN: Warm and moist, no generalized rash. No embolic lesions. She has some track hernandez in her upper extremities. HEENT: Pale conjunctivae. No scleral icterus. Moist oral mucosa. Throat without erythema or exudate. NECK: Has some cervical lymphadenopathy. Supple, nontender, no meningeal signs. CARDIOVASCULAR: Regular rate and rhythm without murmurs, gallops, or rubs. RESPIRATORY: Clear to auscultation. Breath sounds equal bilaterally. No wheezes , rales, or rhonchi. GASTROINTESTINAL: Abdomen soft, non-tender, nondistended. No hepato-splenomegaly , or palpable masses. Bowel sounds are present and normoactive. No guarding. MUSCULOSKELETAL: Extremities without clubbing, cyanosis, or edema. No joint tenderness, effusion, or edema noted. No calf tenderness. NEUROLOGICAL: Non-focal BACK: Incision dry, no redness, has old dried blood LINE: PICC with no evidence of infection Assessment & Plan Remarks IMPRESSION Sepsis on presentation, has Staph hominis (+) BC on admission, patient with IVDU and back pain - Fup BC negative MRI with L5-S1 discitis, osteo and epidural abscess - S/P surgery - C/S with PSAE (+) UA, no significant symptoms Known active IVDU RECOMMENDATION Continue Levaquin Continue Cefepime Monitor progress Will need a long course of IV Abx CT lumbar spine today Needs labs weekly while on Abx: CBC, creatinine.LFT D/W Tamika Tamez MD Aug 12, 2016 12:34
[2016-08-12] MEDS: LEVOFLOXACIN 750 MG TAB PO SCH (12:37)
--- NOTE | 2016-08-12 13:20 | HHI.PR ---
Subjective Remarks Follow up abscess, back pain. Still having back pain, unchanged. Patient has been ambulating more today. No other complaints at this time. Objective Vitals Vital Signs Date Time Temp Pulse Resp B/P Pulse Ox O2 Delivery O2 Flow Rate FiO2 08/12/16 12:00 97.3 74 20 103/57 98 08/12/16 10:38 18 08/12/16 09:51 18 08/12/16 09:51 18 08/12/16 09:51 18 08/12/16 08:05 96.8 99 18 126/79 97 08/12/16 04:00 97.8 64 18 118/58 97 08/12/16 00:30 98.0 64 18 116/59 98 Manual Cuff/Auscultation 08/11/16 20:00 97.8 66 18 128/58 98 08/11/16 16:24 98.3 118 18 137/84 98 I/O 08/11/16 08/11/16 08/11/16 08/12/16 08/12/16 08/12/16 07:00 15:00 23:00 07:00 15:00 23:00 Intake Total 600 ml 3165 ml 480 ml 360 ml 960 ml Output Total 3000 ml Balance 600 ml 3165 ml 480 ml 360 ml -2040 ml Intake Oral 600 ml 360 ml 480 ml 360 ml 960 ml IV Total 2805 ml Output Urine Total 3000 ml # Voids 5 2 2 2 1 Result Diagram: 08/11/16 0550 08/10/16 0710 Imaging Last Impressions Chest X-Ray 08/06/16 0000 Signed Impressions: Service Date/Time: July 16:17 - CONCLUSION: 1. Right upper extremity PICC line with the tip projecting over the central venous system. 2. No acute cardiopulmonary process. Bruno Jin MD Lumbar Spine X-Ray 07/30/16 0000 Signed Impressions: Service Date/Time: July 21:10 - CONCLUSION: 1. Surgical instruments overlie posterior elements at lumbosacral junction. Ovidio Mac MD Lumbar Spine MRI 07/30/16 0000 Signed Impressions: Service Date/Time: July 09:15 - CONCLUSION: 1. Acute discitis and associated osteomyelitis involving the L5-S1 level and the L5 and S1 vertebral bodies with moderate-sized anterior epidural abscess extending from the top of L5 to the bottom of S1 centrally and within the left paracentral region. The epidural abscess appears to impinge upon the left S1 nerve root and effaces the left anterior lateral aspect of the thecal sac at this level. 2. Moderate bilateral foraminal narrowing at L5-S1 secondary to diffuse disc bulge and facet joint hypertrophy bilaterally. 3. Minimal bilateral foraminal narrowing at L2-3 and L3-4. Vincent Olsen MD Abdomen/Pelvis CT 07/27/16 1623 Signed Impressions: Service Date/Time: Wednesday, July 27, 2016 19:04 - CONCLUSION: 1. Left lower lobe consolidation medially most characteristic of pneumonia. Right lung is clear. 2. Moderate constipation with ileus. 3. No renal calculi or evidence for obstructive uropathy. 4. Bladder mildly distended. No bladder calculi. Ovidio Mac MD Objective Remarks Examined in presence of the nurse. General: No acute distress. Sitting up in a chair. Heart: Regular rate and rhythm. No murmur. Lungs: Clear to auscultation bilaterally. No wheezes, rales, or rhonchi. Breathing is nonlabored. Abdomen: Soft, nontender, nondistended. Back: Bandage over lumbar region is clean/dry/intact. Extremities: No lower extremity edema. Psych: Alert and oriented. Procedures 07/30/16 left L5 semi-hemilaminectomy, evacuation of epidural abscess, resection of degenerative herniated disc Urinary Catheter: No Vascular Central Line Catheter: Yes Assessment to: Continue Line: PICC A/P Problem List: (1) Bacteremia ICD Code: R78.81 Status: Acute (2) Left lower lobe pneumonia ICD Code: J18.1 Status: Acute (3) IVDU (intravenous drug user) ICD Code: F19.90 Status: Acute (4) Discitis of lumbosacral region ICD Code: M46.47 Status: Acute (5) Abscess in epidural space of lumbar spine ICD Code: G06.1 Status: Acute (6) Tobacco abuse ICD Code: Z72.0 Status: Chronic Assessment and Plan Reviewed/updated 08/12/16. No change. Continue antibiotics, pain meds. CT of lumbar spine ordered by infectious disease. 1. Bacteremia, L5-S1 discitis/osteomyelitis with epidural abscess: Status post surgical intervention by neurosurgery on 07/30/16. Appreciate infectious disease recommendations. Continue IV antibiotics. 2. Postsurgical back pain: Continue pain medications, Flexeril. 3. Abnormal UA: Possible UTI. Urine culture shows mixed lyndsay, likely contaminants. Rocephin discontinued. 4. Pneumonia: Continue Levaquin. 5. IV drug abuse: Counseled. Most recent use was reportedly 8 days prior to admission. 6. Tobacco abuse: Counseled quit smoking. Nicotine patch as needed. 7. DVT prophylaxis: Lovenox. 8. Constipation: Continue bowel regimen. 9. Hypotension: BP improved. Continue IV fluids. Problem Qualifiers (1) Left lower lobe pneumonia: Qualified Code: J18.1 - Pneumonia of left lower lobe due to infectious organism Guevara Perrin MD Aug 12, 2016 13:20
[2016-08-12 16:00] VITALS: BP 119/70; PULSE 88; RESP 18; TEMP 97.7; O2SAT 97
[2016-08-12] MEDS ORDERED: IOHEXOL 350 MG/ML 10 ML VIAL (for RAD DIAG) IV ONE (16:36)
--- NOTE | 2016-08-12 16:56 | RADRPT ---
EXAM DATE/TIME: 08/12/2016 16:32 [facility] COMPARISON: MRI LUMBAR SPINE W & W/O CONTRAST, July 30, 2016, 9:15. SPINE LUMBAR LATERAL ONLY, July 30, 2016, 21:10. INDICATIONS : Follow up and eval for lumbar epidural abscess. IV CONTRAST: 76 cc Omnipaque 350 (iohexol) IV RADIATION DOSE: 35.86 CTDIvol (mGy) MEDICAL HISTORY : Seizures. Lumbar epidural abscess. SURGICAL HISTORY : None. ENCOUNTER: Subsequent ACUITY: 2 weeks PAIN SCALE: 5/10 LOCATION: Par[facility] TECHNIQUE: Volumetric scanning of the lumbar spine was performed. Multiplanar reconstructions in the sagittal, coronal and oblique axial planes were performed. Using automated exposure control and adjustment of the mA and/or kV according to patient size, radiation dose was kept as low as reasonably achievable t o obtain optimal diagnostic quality images. FINDINGS: CONUS MEDULLARIS: Normal. PARASPINAL SOFT TISSUES: Normal. LUMBAR CORD: Normal. DURAL SAC: Normal. L1-L2: The disc, uncovertebral joints, central canal, foramina, and facets are normal. L2-L3: The disc, uncovertebral joints, central canal, foramina, and facets are normal. L3-L4: The disc, uncovertebral joints, central canal, foramina, and facets are normal. L4-L5: The disc, uncovertebral joints, central canal, foramina, and facets are normal. CONCLUSION: Findings of discitis as described L5-S1. The left posterior to S1 there is a 9 mm more this bone frag ment encroaching upon the canal and left lateral S1 recess. Timothy Mann MD on August 12, 2016 at 16:49 Board Certified Radiologist. This report was verified electronically.
[2016-08-12 20:05] VITALS: BP 110/63; PULSE 103; RESP 18; TEMP 98; O2SAT 100
[2016-08-12] MEDS: diphenhydrAMINE HCL 25 MG CAP PO SCH (21:42)
[2016-08-13] VITALS (7 sets, daily range): BP systolic 98–120; BP diastolic 53–80; PULSE 79–97; RESP 18; TEMP 96.7–99; O2SAT 96–100
[2016-08-13] MEDS: CYCLOBENZAPRINE HCL 10 MG TAB PO PRN ×3 (03:23→18:42)
[2016-08-13] MEDS: ACETAMINOPHEN/HYDROcodone 325 MG/5 MG TAB PO PRN ×5 (03:24→21:23)
[2016-08-13] MEDS: MORPHINE SULFATE 4 MG/ML INJ IV PUSH PRN ×5 (04:21→22:59)
[2016-08-13] MEDS: SODIUM CHLOR 0.9% 1000 ML INJ 1,000 ML IV SCH ×2 (04:23→16:25)
[2016-08-13 07:06] LABS: AUTOMATED NEUTROPHIL # 2.7 TH/MM3 (1.8-7.7); BASOPHIL % 0.5 % (0.0-2.0); EOSINOPHIL # 0.1 TH/MM3 (0-0.4); EOSINOPHIL % 2.4 % (0.0-4.0); HEMATOCRIT 29.5 % (35.0-46.0); HEMO FLAGS DIFF FINAL; LYMPH % 35.8 % (9.0-44.0); LYMPHOCYTE # 1.8 TH/MM3 (1.0-4.8); MEAN CELL VOLUME 85.7 FL (80.0-100.0); MEAN CORPUSCULAR HEMOGLOBIN 28.3 PG (27.0-34.0); MONO % 7.5 % (0.0-8.0); NEUT % 53.8 % (16.0-70.0); PLATELET COUNT 234 TH/MM3 (150-450); RED BLOOD COUNT 3.44 MIL/MM3 (4.00-5.30); RED CELL DISTRIBUTION WIDTH 14.2 % (11.6-17.2)
[2016-08-13 07:34] LABS: BICARBONATE 27.9 MEQ/L (21.0-32.0); POTASSIUM 3.9 MEQ/L (3.5-5.1)
[2016-08-13] MEDS: MORPHINE SULFATE 30 MG CONTROLLED RELEASE TAB PO SCH ×2 (08:32→21:23)
[2016-08-13] MEDS: CHOLECALCIFEROL (VIT D3) 1000 UNIT TAB PO SCH (08:33)
[2016-08-13] MEDS: DOCUSATE SODIUM 50 MG/SENNA 8.6 MG TAB PO SCH (08:33)
[2016-08-13] MEDS: guaiFENesin E.R. 600 MG TAB PO SCH ×2 (08:33→21:23)
[2016-08-13] MEDS: BISACODYL 10 MG SUPP RECTAL SCH (08:34)
[2016-08-13] MEDS: IBUPROFEN 600 MG TAB PO SCH ×3 (08:34→16:22)
[2016-08-13] MEDS: NYSTAT/DIPHENHY/LIDO MOUTHWASH (Adult) 120ML SWISH-SWAL SCH ×4 (08:35→21:25)
[2016-08-13] MEDS: REMOVE OLD PATCH TD SCH (08:35)
[2016-08-13] MEDS: NICOTINE 14 MG/24 HR PATCH TD SCH (08:35)
[2016-08-13] MEDS: SODIUM CHLORIDE 0.9% FLUSH 5 ML FLUSH FLUSH SCH ×2 (08:42→21:00)
[2016-08-13] MEDS: CEFEPIME INJ 2,000 MG in SODIUM CHLORIDE 0.9% INJ 100 ML IV SCH ×2 (11:00→21:25)
[2016-08-13] MEDS: LEVOFLOXACIN 750 MG TAB PO SCH (11:19)
--- NOTE | 2016-08-13 11:54 | HHI.PR ---
Subjective Remarks Having bowel movements. Having low back pain but no weakness in the lower extremities and is ambulating. Objective Vitals Vital Signs Date Time Temp Pulse Resp B/P Pulse Ox O2 Delivery O2 Flow Rate FiO2 08/13/16 08:18 96.9 90 18 101/73 96 08/13/16 07:47 18 08/13/16 04:24 105/53 08/13/16 04:06 97.0 79 18 98/58 100 08/13/16 00:10 97.6 91 18 107/63 100 08/12/16 22:49 18 08/12/16 20:05 98.0 103 18 110/63 100 08/12/16 18:23 18 08/12/16 16:00 97.7 88 18 119/70 97 08/12/16 15:22 20 08/12/16 12:00 97.3 74 20 103/57 98 I/O 08/12/16 08/12/16 08/12/16 08/13/16 08/13/16 08/13/16 07:00 15:00 23:00 07:00 15:00 23:00 Intake Total 360 ml 1440 ml 1080 ml 240 ml Output Total 3000 ml Balance 360 ml -1560 ml 1080 ml 240 ml Intake Oral 360 ml 1440 ml 1080 ml 240 ml Output Urine Total 3000 ml # Voids 2 1 2 2 Result Diagram: 08/13/1639 08/13/1639 Objective Remarks GENERAL: Well-nourished, well-developed pleasant lean female patient. SKIN: Warm and dry. HEAD: Normocephalic. EYES: No scleral icterus. No injection or drainage. NECK: Supple, trachea midline. No JVD or lymphadenopathy. CARDIOVASCULAR: Regular rate and rhythm without murmurs, gallops, or rubs. RESPIRATORY: Breath sounds equal bilaterally. No accessory muscle use. GASTROINTESTINAL: Abdomen soft, non-tender, nondistended. EXTREMITIES: No cyanosis, or edema. NEUROLOGICAL: Awake, alert, and oriented x 3. Non-focal. Procedures 07/30/16 left L5 semi-hemilaminectomy, evacuation of epidural abscess, resection of degenerative herniated disc Line: PICC A/P Problem List: (1) Bacteremia ICD Code: R78.81 Status: Acute (2) Left lower lobe pneumonia ICD Code: J18.1 Status: Acute (3) IVDU (intravenous drug user) ICD Code: F19.90 Status: Acute (4) Discitis of lumbosacral region ICD Code: M46.47 Status: Acute (5) Abscess in epidural space of lumbar spine ICD Code: G06.1 Status: Acute (6) Tobacco abuse ICD Code: Z72.0 Status: Chronic Assessment and Plan 1. Bacteremia (staph hominis), L5-S1 discitis/osteomyelitis with epidural abscess (C/S with PSAE): Status post laminectomy by neurosurgery on 07/30/16-. Appreciate infectious disease recommendations. Continue IV antibiotics cefepime , levaquin Lumbar CT 08/12 noted. 2-D echo was negative for vegetations. Repeat blood cultures are negative. Weekly labs with CBC, creatinine and LFTs. 2. Postsurgical back pain: Continue pain medications, Flexeril. 3. IV drug abuse: Counseled. Most recent use was reportedly 8 days prior to admission. 6. Tobacco abuse: Counseled quit smoking. Nicotine patch as needed. 7. DVT prophylaxis: Lovenox. 8. Constipation: Continue bowel regimen. 9. Left lower lobe pneumonia on admission. Now resolved. Problem Qualifiers (1) Left lower lobe pneumonia: Qualified Code: J18.1 - Pneumonia of left lower lobe due to infectious organism Linda Roman MD Aug 13, 2016 11:54
[2016-08-13] MEDS: diphenhydrAMINE HCL 25 MG CAP PO SCH (21:00)
[2016-08-14] VITALS (7 sets, daily range): BP systolic 98–136; BP diastolic 59–82; PULSE 66–92; RESP 16–18; TEMP 96.8–98.7; O2SAT 93–100
[2016-08-14] MEDS: ACETAMINOPHEN/HYDROcodone 325 MG/5 MG TAB PO PRN ×4 (01:09→16:13)
[2016-08-14] MEDS: SODIUM CHLOR 0.9% 1000 ML INJ 1,000 ML IV SCH ×3 (01:30→21:30)
[2016-08-14] MEDS: CYCLOBENZAPRINE HCL 10 MG TAB PO PRN ×3 (02:37→16:13)
[2016-08-14] MEDS: SODIUM CHLORIDE 0.9% FLUSH 5 ML FLUSH FLUSH PRN (02:38)
[2016-08-14] MEDS: MORPHINE SULFATE 4 MG/ML INJ IV PUSH PRN ×5 (02:41→23:46)
[2016-08-14] MEDS: NICOTINE 14 MG/24 HR PATCH TD SCH (08:32)
[2016-08-14] MEDS: REMOVE OLD PATCH TD SCH (08:32)
[2016-08-14] MEDS: guaiFENesin E.R. 600 MG TAB PO SCH ×2 (08:33→21:15)
[2016-08-14] MEDS: BISACODYL 10 MG SUPP RECTAL SCH (08:33)
[2016-08-14] MEDS: NYSTAT/DIPHENHY/LIDO MOUTHWASH (Adult) 120ML SWISH-SWAL SCH ×4 (08:34→21:21)
[2016-08-14] MEDS: CHOLECALCIFEROL (VIT D3) 1000 UNIT TAB PO SCH (08:34)
[2016-08-14] MEDS: DOCUSATE SODIUM 50 MG/SENNA 8.6 MG TAB PO SCH (08:34)
[2016-08-14] MEDS: SODIUM CHLORIDE 0.9% FLUSH 5 ML FLUSH FLUSH SCH ×2 (08:39→21:19)
[2016-08-14] MEDS: IBUPROFEN 600 MG TAB PO SCH ×3 (08:40→16:14)
[2016-08-14] MEDS: MORPHINE SULFATE 30 MG CONTROLLED RELEASE TAB PO SCH ×2 (08:40→21:17)
--- NOTE | 2016-08-14 10:27 | HHI.PR ---
Subjective Remarks Follow up for bacteremia with staph hominis and L5-S1 discitis with epidural abscess. Patient is currently doing well. Took shower and feels better. She wants to know if she can go home with her parents and continue IV abx via [facility]. Denies any fever, chills. Objective Vitals Vital Signs Date Time Temp Pulse Resp B/P Pulse Ox O2 Delivery O2 Flow Rate FiO2 08/14/16 08:16 96.8 80 18 106/70 100 08/14/16 07:21 16 08/14/16 07:21 16 08/14/16 04:34 97.3 66 18 103/64 100 08/14/16 00:03 98.1 88 16 109/66 100 08/13/16 22:23 18 08/13/16 20:21 99.0 97 18 120/80 96 08/13/16 16:07 97.5 80 18 101/64 100 08/13/16 12:54 96.7 90 18 108/69 99 I/O 08/13/16 08/13/16 08/13/16 08/14/16 08/14/16 08/14/16 07:00 15:00 23:00 07:00 15:00 23:00 Intake Total 240 ml 720 ml 480 ml 240 ml Balance 240 ml 720 ml 480 ml 240 ml Intake Oral 240 ml 720 ml 480 ml 240 ml # Voids 2 3 2 2 Result Diagram: 08/13/16 0639 08/13/16 0639 Imaging Last Impressions Lumbar Spine CT 08/12/16 0000 Signed Impressions: Service Date/Time: Friday, August 12, 2016 16:32 - CONCLUSION: Findings of discitis as described L5-S1. The left posterior to S1 there is a 9 mm more this bone fragment encroaching upon the canal and left lateral S1 recess. Timothy Mann MD Chest X-Ray 08/06/16 0000 Signed Impressions: Service Date/Time: July 16:17 - CONCLUSION: 1. Right upper extremity PICC line with the tip projecting over the central venous system. 2. No acute cardiopulmonary process. Bruno Jin MD Lumbar Spine X-Ray 07/30/16 0000 Signed Impressions: Service Date/Time: July 21:10 - CONCLUSION: 1. Surgical instruments overlie posterior elements at lumbosacral junction. Ovidio Mac MD Lumbar Spine MRI 07/30/16 0000 Signed Impressions: Service Date/Time: July 09:15 - CONCLUSION: 1. Acute discitis and associated osteomyelitis involving the L5-S1 level and the L5 and S1 vertebral bodies with moderate-sized anterior epidural abscess extending from the top of L5 to the bottom of S1 centrally and within the left paracentral region. The epidural abscess appears to impinge upon the left S1 nerve root and effaces the left anterior lateral aspect of the thecal sac at this level. 2. Moderate bilateral foraminal narrowing at L5-S1 secondary to diffuse disc bulge and facet joint hypertrophy bilaterally. 3. Minimal bilateral foraminal narrowing at L2-3 and L3-4. Vincent Olsen MD Abdomen/Pelvis CT 07/27/16 1623 Signed Impressions: Service Date/Time: Wednesday, July 27, 2016 19:04 - CONCLUSION: 1. Left lower lobe consolidation medially most characteristic of pneumonia. Right lung is clear. 2. Moderate constipation with ileus. 3. No renal calculi or evidence for obstructive uropathy. 4. Bladder mildly distended. No bladder calculi. Ovidio Mac MD Objective Remarks GENERAL: AOX3, NAD. SKIN: Warm and dry. HEAD: Normocephalic. EYES: No scleral icterus. No injection or drainage. NECK: Supple, trachea midline. No JVD or lymphadenopathy. CARDIOVASCULAR: Regular rate and rhythm without murmurs, gallops, or rubs. RESPIRATORY: Breath sounds equal bilaterally. No accessory muscle use. GASTROINTESTINAL: Abdomen soft, non-tender, nondistended. MUSCULOSKELETAL: No cyanosis, or edema. BACK: Nontender without obvious deformity. No CVA tenderness. Procedures 07/30/16 left L5 semi-hemilaminectomy, evacuation of epidural abscess, resection of degenerative herniated disc Line: PICC A/P Problem List: (1) Bacteremia ICD Code: R78.81 Status: Acute (2) Left lower lobe pneumonia ICD Code: J18.1 Status: Acute (3) IVDU (intravenous drug user) ICD Code: F19.90 Status: Acute (4) Discitis of lumbosacral region ICD Code: M46.47 Status: Acute (5) Abscess in epidural space of lumbar spine ICD Code: G06.1 Status: Acute (6) Tobacco abuse ICD Code: Z72.0 Status: Chronic Assessment and Plan Ms. Morse is a 36-year-old female with history of IVDU, chronic back pain, sciatica, migraines, admitted on 07/28/2016 with a one-week history of back pain. She underwent left L5 semi-hemilaminectomy, evacuation epidural abscess, resection degenerative herniated disc by Dr. Baer (Neurosurgery) on 07/30/2016. Abscess cx grew Pseudomonas and blood culture grew Staph hominis. TTE negative for any vegetation. 1. Bacteremia (staph hominis), L5-S1 discitis/osteomyelitis with epidural abscess (Cx positive for pseudomonas): Status post laminectomy by neurosurgery on 07/30/16-. Appreciate infectious disease recommendations. Continue IV antibiotics cefepime, Levaquin Lumbar CT 08/12 noted. 2-D echo was negative for vegetations. Repeat blood cultures are negative. Weekly labs with CBC, creatinine and LFTs. If patient cannot be discharged home, transferring to [facility] would be a feasible option. 2. Postsurgical back pain: Continue pain medications, Flexeril. 3. IV drug abuse: Counseled. Most recent use was reportedly 8 days prior to admission. 4. Tobacco abuse: Counseled to quit smoking. Nicotine patch as needed. 5. Left lower lobe pneumonia on admission. Now resolved. Full code. SCDs. Lovenox or Heparin SQ if okay with neurosurgery. Problem Qualifiers (1) Left lower lobe pneumonia: Qualified Code: J18.1 - Pneumonia of left lower lobe due to infectious organism Radhika Pringle DO Aug 14, 2016 10:27
[2016-08-14] MEDS: CEFEPIME INJ 2,000 MG in SODIUM CHLORIDE 0.9% INJ 100 ML IV SCH ×2 (12:04→21:16)
[2016-08-14] MEDS: LEVOFLOXACIN 750 MG TAB PO SCH (12:05)
--- NOTE | 2016-08-14 15:37 | HHI.IDPN ---
Subjective Subjective Remarks Notes reviewed No fever Pain under better control No N/V or diarrhea No rash or itching NOted some vaginal discharge, but no burning or pain C/S from OR with rare PSAE BC on admission with Staph hominis Repeat BC negative so far TTE report noted, no mention of vegetation 07/30 - Had hemilaminectomy, evac of epidural abscess and resection of degenerated herniated disc Antibiotics Cefepime Levaquin Lines PIV Past Medical History chronic back pain sciatica migraines 2 pregnancies, and 2 spontaneous vaginal delivery Previous HIV testing negative, last one probably in the last 6-12 months done in the [facility] Allergies: Coded Allergies: Dimetapp (Verified Allergy, Severe, Hives, 11/21/15) Objective . Vital Signs Date Time Temp Pulse Resp B/P Pulse Ox O2 Delivery O2 Flow Rate FiO2 08/14/16 15:24 97.4 89 18 109/62 97 08/14/16 12:52 97.0 75 18 98/59 95 08/14/16 08:16 96.8 80 18 106/70 100 08/14/16 07:21 16 08/14/16 07:21 16 08/14/16 04:34 97.3 66 18 103/64 100 08/14/16 00:03 98.1 88 16 109/66 100 08/13/16 22:23 18 08/13/16 20:21 99.0 97 18 120/80 96 08/13/16 16:07 97.5 80 18 101/64 100 08/13/16 08/13/16 08/14/16 15:00 23:00 07:00 Intake Total 720 ml 480 ml 240 ml Balance 720 ml 480 ml 240 ml Intake Oral 720 ml 480 ml 240 ml # Voids 3 2 2 . Laboratory Tests Test 08/13/16 06:39 White Blood Count 5.0 TH/MM3 Red Blood Count 3.44 MIL/MM3 Hemoglobin 9.7 GM/DL Hematocrit 29.5 % Mean Corpuscular Volume 85.7 FL Mean Corpuscular Hemoglobin 28.3 PG Mean Corpuscular Hemoglobin 33.0 % Concent Red Cell Distribution Width 14.2 % Platelet Count 234 TH/MM3 Mean Platelet Volume 8.0 FL Neutrophils (%) (Auto) 53.8 % Lymphocytes (%) (Auto) 35.8 % Monocytes (%) (Auto) 7.5 % Eosinophils (%) (Auto) 2.4 % Basophils (%) (Auto) 0.5 % Neutrophils # (Auto) 2.7 TH/MM3 Lymphocytes # (Auto) 1.8 TH/MM3 Monocytes # (Auto) 0.4 TH/MM3 Eosinophils # (Auto) 0.1 TH/MM3 Basophils # (Auto) 0.0 TH/MM3 CBC Comment DIFF FINAL Differential Comment Laboratory Tests Test 08/13/16 06:39 Sodium Level 144 MEQ/L Potassium Level 3.9 MEQ/L Chloride Level 110 MEQ/L Carbon Dioxide Level 27.9 MEQ/L Anion Gap 6 MEQ/L Blood Urea Nitrogen 9 MG/DL Creatinine 0.42 MG/DL Estimat Glomerular Filtration 171 ML/MIN Rate Random Glucose 81 MG/DL Calcium Level 8.3 MG/DL Imaging Lumbar Spine CT 08/12/16 0000 Signed Impressions: Service Date/Time: Friday, August 12, 2016 16:32 - CONCLUSION: Findings of discitis as described L5-S1. The left posterior to S1 there is a 9 mm more this bone fragment encroaching upon the canal and left lateral S1 recess. Timothy Mann MD Chest X-Ray 08/06/16 0000 Signed Impressions: Service Date/Time: July 16:17 - CONCLUSION: 1. Right upper extremity PICC line with the tip projecting over the central venous system. 2. No acute cardiopulmonary process. Bruno Jin MD Lumbar Spine X-Ray 07/30/16 0000 Signed Impressions: Service Date/Time: July 21:10 - CONCLUSION: 1. Surgical instruments overlie posterior elements at lumbosacral junction. Ovidio Mac MD Lumbar Spine MRI 07/30/16 0000 Signed Impressions: Service Date/Time: July 09:15 - CONCLUSION: 1. Acute discitis and associated osteomyelitis involving the L5-S1 level and the L5 and S1 vertebral bodies with moderate-sized anterior epidural abscess extending from the top of L5 to the bottom of S1 centrally and within the left paracentral region. The epidural abscess appears to impinge upon the left S1 nerve root and effaces the left anterior lateral aspect of the thecal sac at this level. 2. Moderate bilateral foraminal narrowing at L5-S1 secondary to diffuse disc bulge and facet joint hypertrophy bilaterally. 3. Minimal bilateral foraminal narrowing at L2-3 and L3-4. Vincent Olsen MD Abdomen/Pelvis CT 07/27/16 1623 Signed Impressions: Service Date/Time: Wednesday, July 27, 2016 19:04 - CONCLUSION: 1. Left lower lobe consolidation medially most characteristic of pneumonia. Right lung is clear. 2. Moderate constipation with ileus. 3. No renal calculi or evidence for obstructive uropathy. 4. Bladder mildly distended. No bladder calculi. Ovidio Mac MD Physical Exam GENERAL: awake and alert, not in respiratory distress. SKIN: Warm and moist, no generalized rash. HEENT: Pale conjunctivae. No scleral icterus. Moist oral mucosa. No thrush NECK: Has some cervical lymphadenopathy. Supple, nontender, no meningeal signs. CARDIOVASCULAR: Regular rate and rhythm without murmurs, gallops, or rubs. RESPIRATORY: Clear to auscultation. Breath sounds equal bilaterally. No wheezes , rales, or rhonchi. GASTROINTESTINAL: Abdomen soft, non-tender, mildly distended. Bowel sounds are present and normoactive. No guarding. MUSCULOSKELETAL: Extremities without clubbing, cyanosis, or edema. No joint tenderness, effusion, or edema noted. No calf tenderness. NEUROLOGICAL: Non-focal BACK: Incision dry, ok LINE: PICC with no evidence of infection EXT Genitalia: No evidence of annabel yeast infection Assessment & Plan Remarks IMPRESSION Sepsis on presentation, has Staph hominis (+) BC on admission, patient with IVDU and back pain - Fup BC negative MRI with L5-S1 discitis, osteo and epidural abscess - S/P surgery - C/S with PSAE - Fup CT no abscess seen (+) UA, no significant symptoms Known active IVDU RECOMMENDATION Continue Levaquin Continue Cefepime Monitor progress Will need a long course of IV Abx, plan 6-8 weeks Needs labs weekly while on Abx: CBC, creatinine.LFT Add Lactinex Explained plan to patient Tamika Leiva MD Aug 14, 2016 15:37
[2016-08-14] MEDS: LACTOBACILLUS ACIDOPHILUS TAB PO SCH (18:00)
[2016-08-14] MEDS: diphenhydrAMINE HCL 25 MG CAP PO SCH (21:15)
[2016-08-15] MEDS: ACETAMINOPHEN/HYDROcodone 325 MG/5 MG TAB PO PRN ×5 (01:25→22:50)
[2016-08-15 04:00] VITALS: BP 132/90; PULSE 95; RESP 20; TEMP 98.6; O2SAT 100
[2016-08-15] MEDS: MORPHINE SULFATE 4 MG/ML INJ IV PUSH PRN ×4 (04:54→18:52)
[2016-08-15] MEDS: SODIUM CHLOR 0.9% 1000 ML INJ 1,000 ML IV SCH ×2 (07:30→17:30)
[2016-08-15] MEDS: MORPHINE SULFATE 30 MG CONTROLLED RELEASE TAB PO SCH ×2 (08:10→22:49)
[2016-08-15] MEDS: CHOLECALCIFEROL (VIT D3) 1000 UNIT TAB PO SCH (08:11)
[2016-08-15] MEDS: IBUPROFEN 600 MG TAB PO SCH ×3 (08:11→18:52)
[2016-08-15] MEDS: guaiFENesin E.R. 600 MG TAB PO SCH ×2 (08:11→22:49)
[2016-08-15] MEDS: DOCUSATE SODIUM 50 MG/SENNA 8.6 MG TAB PO SCH (08:11)
[2016-08-15] MEDS: NYSTAT/DIPHENHY/LIDO MOUTHWASH (Adult) 120ML SWISH-SWAL SCH ×4 (08:12→22:50)
[2016-08-15] MEDS: BISACODYL 10 MG SUPP RECTAL SCH (08:12)
[2016-08-15] MEDS: SODIUM CHLORIDE 0.9% FLUSH 5 ML FLUSH FLUSH SCH ×2 (08:16→22:48)
[2016-08-15] MEDS: REMOVE OLD PATCH TD SCH (08:17)
[2016-08-15] MEDS: LACTOBACILLUS ACIDOPHILUS TAB PO SCH ×3 (08:17→18:00)
[2016-08-15] MEDS: NICOTINE 14 MG/24 HR PATCH TD SCH (08:17)
[2016-08-15 08:57] VITALS: BP 121/80; PULSE 95; RESP 18; TEMP 97.3; O2SAT 100
--- NOTE | 2016-08-15 11:03 | HHI.PR ---
Subjective Remarks Follow up for bacteremia with staph hominis and L5-S1 discitis with epidural abscess. Patient is currently doing well. She reports low back pain. No fever or chills. Objective Vitals Vital Signs Date Time Temp Pulse Resp B/P Pulse Ox O2 Delivery O2 Flow Rate FiO2 08/15/16 08:57 97.3 95 18 121/80 100 08/15/16 04:00 98.6 95 20 132/90 100 08/14/16 23:00 98.7 91 18 136/82 93 08/14/16 20:00 97.5 92 18 99/64 93 08/14/16 15:24 97.4 89 18 109/62 97 08/14/16 12:52 97.0 75 18 98/59 95 I/O 08/14/16 08/14/16 08/14/16 08/15/16 08/15/16 08/15/16 07:00 15:00 23:00 07:00 15:00 23:00 Intake Total 240 ml 480 ml 240 ml Balance 240 ml 480 ml 240 ml Intake Oral 240 ml 480 ml 240 ml # Voids 2 3 4 2 # Bowel Movements 1 0 Result Diagram: 08/13/16 0639 08/13/16 0639 Imaging Last Impressions Lumbar Spine CT 08/12/16 0000 Signed Impressions: Service Date/Time: Friday, August 12, 2016 16:32 - CONCLUSION: Findings of discitis as described L5-S1. The left posterior to S1 there is a 9 mm more this bone fragment encroaching upon the canal and left lateral S1 recess. Timothy Mann MD Chest X-Ray 08/06/16 0000 Signed Impressions: Service Date/Time: July 16:17 - CONCLUSION: 1. Right upper extremity PICC line with the tip projecting over the central venous system. 2. No acute cardiopulmonary process. Bruno Jin MD Lumbar Spine X-Ray 07/30/16 0000 Signed Impressions: Service Date/Time: July 21:10 - CONCLUSION: 1. Surgical instruments overlie posterior elements at lumbosacral junction. Ovidio Mac MD Lumbar Spine MRI 07/30/16 0000 Signed Impressions: Service Date/Time: July 09:15 - CONCLUSION: 1. Acute discitis and associated osteomyelitis involving the L5-S1 level and the L5 and S1 vertebral bodies with moderate-sized anterior epidural abscess extending from the top of L5 to the bottom of S1 centrally and within the left paracentral region. The epidural abscess appears to impinge upon the left S1 nerve root and effaces the left anterior lateral aspect of the thecal sac at this level. 2. Moderate bilateral foraminal narrowing at L5-S1 secondary to diffuse disc bulge and facet joint hypertrophy bilaterally. 3. Minimal bilateral foraminal narrowing at L2-3 and L3-4. Vincent Olsen MD Abdomen/Pelvis CT 07/27/16 1623 Signed Impressions: Service Date/Time: Wednesday, July 27, 2016 19:04 - CONCLUSION: 1. Left lower lobe consolidation medially most characteristic of pneumonia. Right lung is clear. 2. Moderate constipation with ileus. 3. No renal calculi or evidence for obstructive uropathy. 4. Bladder mildly distended. No bladder calculi. Ovidio Mac MD Objective Remarks GENERAL: AOX3, NAD. SKIN: Warm and dry. HEAD: Normocephalic. EYES: No scleral icterus. No injection or drainage. NECK: Supple, trachea midline. No JVD or lymphadenopathy. CARDIOVASCULAR: Regular rate and rhythm without murmurs, gallops, or rubs. RESPIRATORY: Breath sounds equal bilaterally. No accessory muscle use. GASTROINTESTINAL: Abdomen soft, non-tender, nondistended. MUSCULOSKELETAL: No cyanosis, or edema. BACK: Nontender without obvious deformity. No CVA tenderness. Procedures 07/30/16 left L5 semi-hemilaminectomy, evacuation of epidural abscess, resection of degenerative herniated disc Line: PICC A/P Problem List: (1) Bacteremia ICD Code: R78.81 Status: Acute (2) Left lower lobe pneumonia ICD Code: J18.1 Status: Acute (3) IVDU (intravenous drug user) ICD Code: F19.90 Status: Acute (4) Discitis of lumbosacral region ICD Code: M46.47 Status: Acute (5) Abscess in epidural space of lumbar spine ICD Code: G06.1 Status: Acute (6) Tobacco abuse ICD Code: Z72.0 Status: Chronic Assessment and Plan Ms. Morse is a 36-year-old female with history of IVDU, chronic back pain, sciatica, migraines, admitted on 07/28/2016 with a one-week history of back pain. She underwent left L5 semi-hemilaminectomy, evacuation epidural abscess, resection degenerative herniated disc by Dr. Baer (Neurosurgery) on 07/30/2016. Abscess cx grew Pseudomonas and blood culture grew Staph hominis. TTE negative for any vegetation. 1. Bacteremia (staph hominis), L5-S1 discitis/osteomyelitis with epidural abscess (Cx positive for pseudomonas): Status post laminectomy by neurosurgery on 07/30/16-. Appreciate infectious disease recommendations. Continue IV antibiotics cefepime, Levaquin Lumbar CT 08/12 noted. 2-D echo was negative for vegetations. Repeat blood cultures are negative. Weekly labs with CBC, creatinine and LFTs. If patient cannot be discharged home, transferring to [facility] would be a feasible option. Will discuss with ID on 2016. 2. Postsurgical back pain: Continue pain medications, Flexeril. 3. IV drug abuse: Counseled. Most recent use was reportedly 8 days prior to admission. 4. Tobacco abuse: Counseled to quit smoking. Nicotine patch as needed. 5. Left lower lobe pneumonia on admission. Now resolved. Full code. SCDs. Lovenox or Heparin SQ if okay with neurosurgery. Problem Qualifiers (1) Left lower lobe pneumonia: Qualified Code: J18.1 - Pneumonia of left lower lobe due to infectious organism Radhika Pringle DO Aug 15, 2016 11:03 am
[2016-08-15] MEDS: LEVOFLOXACIN 750 MG TAB PO SCH (11:15)
[2016-08-15] MEDS: CEFEPIME INJ 2,000 MG in SODIUM CHLORIDE 0.9% INJ 100 ML IV SCH ×2 (11:18→22:50)
[2016-08-15 12:52] VITALS: BP 153/61; PULSE 96; RESP 18; TEMP 97.6; O2SAT 98
[2016-08-15 16:27] VITALS: BP 109/78; PULSE 94; RESP 18; TEMP 97.7; O2SAT 98
[2016-08-15 20:00] VITALS: BP 123/81; PULSE 94; RESP 18; TEMP 96.9; O2SAT 100
[2016-08-15] MEDS: diphenhydrAMINE HCL 25 MG CAP PO SCH (21:00)
[2016-08-16] VITALS: BP 127/83; PULSE 84; RESP 18; TEMP 96.3; O2SAT 98
[2016-08-16] MEDS: MORPHINE SULFATE 4 MG/ML INJ IV PUSH PRN ×2 (00:51→04:59)
[2016-08-16] MEDS: SODIUM CHLOR 0.9% 1000 ML INJ 1,000 ML IV SCH ×3 (03:30→23:30)
[2016-08-16 04:00] VITALS: BP 120/78; PULSE 85; RESP 18; TEMP 96.8; O2SAT 99
[2016-08-16] MEDS: ACETAMINOPHEN/HYDROcodone 325 MG/5 MG TAB PO PRN ×5 (04:10→19:53)
[2016-08-16] MEDS: CYCLOBENZAPRINE HCL 10 MG TAB PO PRN ×2 (04:12→19:53)
[2016-08-16 08:20] VITALS: BP 117/80; PULSE 78; RESP 20; TEMP 96.8; O2SAT 100
--- NOTE | 2016-08-16 08:23 | HHI.PR ---
Subjective Remarks Follow up for bacteremia with staph hominis and L5-S1 discitis with epidural abscess. Patient is complaining of low back pain especially when she is in bed. Pain is better when she is standing up or sitting in her chair. No fever or chills. Objective Vitals Vital Signs Date Time Temp Pulse Resp B/P Pulse Ox O2 Delivery O2 Flow Rate FiO2 08/16/16 04:00 96.8 85 18 120/78 99 08/16/16 00:00 96.3 84 18 127/83 98 08/15/16 20:00 96.9 94 18 123/81 100 08/15/16 16:27 97.7 94 18 109/78 98 08/15/16 12:52 97.6 96 18 153/61 98 08/15/16 08:57 97.3 95 18 121/80 100 I/O 08/15/16 08/15/16 08/15/16 08/16/16 08/16/16 08/16/16 07:00 15:00 23:00 07:00 15:00 23:00 Intake Total 240 ml 850 ml Balance 240 ml 850 ml Intake Oral 240 ml 850 ml # Voids 2 5 4 # Bowel Movements 0 2 Result Diagram: 08/13/16 0639 08/13/16 0639 Imaging Last Impressions Lumbar Spine CT 08/12/16 0000 Signed Impressions: Service Date/Time: Friday, August 12, 2016 16:32 - CONCLUSION: Findings of discitis as described L5-S1. The left posterior to S1 there is a 9 mm more this bone fragment encroaching upon the canal and left lateral S1 recess. Timothy Mnan MD Chest X-Ray 08/06/16 0000 Signed Impressions: Service Date/Time: July 16:17 - CONCLUSION: 1. Right upper extremity PICC line with the tip projecting over the central venous system. 2. No acute cardiopulmonary process. Bruno Jin MD Lumbar Spine X-Ray 07/30/16 0000 Signed Impressions: Service Date/Time: July 21:10 - CONCLUSION: 1. Surgical instruments overlie posterior elements at lumbosacral junction. Ovidio Mac MD Lumbar Spine MRI 07/30/16 0000 Signed Impressions: Service Date/Time: July 09:15 - CONCLUSION: 1. Acute discitis and associated osteomyelitis involving the L5-S1 level and the L5 and S1 vertebral bodies with moderate-sized anterior epidural abscess extending from the top of L5 to the bottom of S1 centrally and within the left paracentral region. The epidural abscess appears to impinge upon the left S1 nerve root and effaces the left anterior lateral aspect of the thecal sac at this level. 2. Moderate bilateral foraminal narrowing at L5-S1 secondary to diffuse disc bulge and facet joint hypertrophy bilaterally. 3. Minimal bilateral foraminal narrowing at L2-3 and L3-4. Vincent Olsen MD Abdomen/Pelvis CT 07/27/16 1623 Signed Impressions: Service Date/Time: Wednesday, July 27, 2016 19:04 - CONCLUSION: 1. Left lower lobe consolidation medially most characteristic of pneumonia. Right lung is clear. 2. Moderate constipation with ileus. 3. No renal calculi or evidence for obstructive uropathy. 4. Bladder mildly distended. No bladder calculi. Ovidio Mac MD Objective Remarks GENERAL: AOX3, NAD. SKIN: Warm and dry. HEAD: Normocephalic. EYES: No scleral icterus. No injection or drainage. NECK: Supple, trachea midline. No JVD or lymphadenopathy. CARDIOVASCULAR: Regular rate and rhythm without murmurs, gallops, or rubs. RESPIRATORY: Breath sounds equal bilaterally. No accessory muscle use. GASTROINTESTINAL: Abdomen soft, non-tender, nondistended. MUSCULOSKELETAL: No cyanosis, or edema. BACK: Nontender without obvious deformity. No CVA tenderness. Procedures 07/30/16 left L5 semi-hemilaminectomy, evacuation of epidural abscess, resection of degenerative herniated disc Line: PICC A/P Problem List: (1) Bacteremia ICD Code: R78.81 Status: Acute (2) Left lower lobe pneumonia ICD Code: J18.1 Status: Acute (3) IVDU (intravenous drug user) ICD Code: F19.90 Status: Acute (4) Discitis of lumbosacral region ICD Code: M46.47 Status: Acute (5) Abscess in epidural space of lumbar spine ICD Code: G06.1 Status: Acute (6) Tobacco abuse ICD Code: Z72.0 Status: Chronic Assessment and Plan Ms. Morse is a 36-year-old female with history of IVDU, chronic back pain, sciatica, migraines, admitted on 07/28/2016 with a one-week history of back pain. She underwent left L5 semi-hemilaminectomy, evacuation epidural abscess, resection degenerative herniated disc by Dr. Baer (Neurosurgery) on 07/30/2016. Abscess cx grew Pseudomonas and blood culture grew Staph hominis. TTE negative for any vegetation. 1. Bacteremia (staph hominis), L5-S1 discitis/osteomyelitis with epidural abscess (Cx positive for pseudomonas): Status post laminectomy by neurosurgery on 07/30/16-. Appreciate infectious disease recommendations. Continue IV antibiotics cefepime, Levaquin Lumbar CT 08/12 noted. 2-D echo was negative for vegetations. Repeat blood cultures are negative. Weekly labs with CBC, creatinine and LFTs. If patient cannot be discharged home, transferring to [facility] would be a feasible option. Will discuss with ID on 2016. 2. Postsurgical back pain: Continue Flexeril and pain medications - Morphine SR 30mg Q12hrs, Mallard PRN and Morphine IV 2mg IV Q4hrs PRN. 3. IV drug abuse: Counseled. Most recent use was reportedly 8 days prior to admission. 4. Tobacco abuse: Counseled to quit smoking. Nicotine patch as needed. 5. Left lower lobe pneumonia on admission. Now resolved. Full code. SCDs. Lovenox or Heparin SQ if okay with neurosurgery. Continue ambulation. Problem Qualifiers (1) Left lower lobe pneumonia: Qualified Code: J18.1 - Pneumonia of left lower lobe due to infectious organism Radhika Pringle DO Aug 16, 2016 8:23 am
[2016-08-16] MEDS: BISACODYL 10 MG SUPP RECTAL SCH (09:00)
[2016-08-16] MEDS: REMOVE OLD PATCH TD SCH (09:00)
[2016-08-16] MEDS: MORPHINE SULFATE 30 MG CONTROLLED RELEASE TAB PO SCH ×2 (09:39→19:53)
[2016-08-16] MEDS: NYSTAT/DIPHENHY/LIDO MOUTHWASH (Adult) 120ML SWISH-SWAL SCH ×4 (09:39→19:54)
[2016-08-16] MEDS: NICOTINE 14 MG/24 HR PATCH TD SCH (09:40)
[2016-08-16] MEDS: DOCUSATE SODIUM 50 MG/SENNA 8.6 MG TAB PO SCH (09:41)
[2016-08-16] MEDS: LACTOBACILLUS ACIDOPHILUS TAB PO SCH ×3 (09:41→17:55)
[2016-08-16] MEDS: CHOLECALCIFEROL (VIT D3) 1000 UNIT TAB PO SCH (09:42)
[2016-08-16] MEDS: guaiFENesin E.R. 600 MG TAB PO SCH ×2 (09:42→19:53)
[2016-08-16] MEDS: IBUPROFEN 600 MG TAB PO SCH ×3 (09:42→17:56)
[2016-08-16] MEDS: SODIUM CHLORIDE 0.9% FLUSH 5 ML FLUSH FLUSH SCH ×2 (09:43→19:53)
[2016-08-16 12:28] VITALS: BP 109/77; PULSE 77; RESP 20; TEMP 96; O2SAT 100
[2016-08-16] MEDS: LEVOFLOXACIN 750 MG TAB PO SCH (12:29)
[2016-08-16] MEDS: CEFEPIME INJ 2,000 MG in SODIUM CHLORIDE 0.9% INJ 100 ML IV SCH ×2 (12:30→23:47)
[2016-08-16 16:42] VITALS: BP 110/77; PULSE 90; RESP 20; TEMP 98.6; O2SAT 99
[2016-08-16] MEDS: diphenhydrAMINE HCL 25 MG CAP PO SCH (19:51)
[2016-08-16 20:52] VITALS: BP 117/80; PULSE 92; RESP 17; TEMP 97.3; O2SAT 98
[2016-08-17 00:36] VITALS: BP 125/91; PULSE 101; RESP 17; TEMP 97.6; O2SAT 98
[2016-08-17] MEDS: ACETAMINOPHEN/HYDROcodone 325 MG/5 MG TAB PO PRN ×3 (02:53→17:06)
[2016-08-17 04:51] VITALS: BP 118/74; PULSE 85; RESP 16; TEMP 97.5; O2SAT 98
[2016-08-17] MEDS: CYCLOBENZAPRINE HCL 10 MG TAB PO PRN (05:36)
[2016-08-17 08:01] VITALS: BP 134/81; PULSE 66; RESP 20; TEMP 97.4; O2SAT 100
[2016-08-17] MEDS: BISACODYL 10 MG SUPP RECTAL SCH (09:00)
[2016-08-17] MEDS: REMOVE OLD PATCH TD SCH (09:00)
[2016-08-17] MEDS: MORPHINE SULFATE 30 MG CONTROLLED RELEASE TAB PO SCH ×2 (09:19→21:55)
[2016-08-17] MEDS: CHOLECALCIFEROL (VIT D3) 1000 UNIT TAB PO SCH (09:19)
[2016-08-17] MEDS: IBUPROFEN 600 MG TAB PO SCH ×3 (09:20→17:07)
[2016-08-17] MEDS: LACTOBACILLUS ACIDOPHILUS TAB PO SCH ×3 (09:20→17:06)
[2016-08-17] MEDS: NYSTAT/DIPHENHY/LIDO MOUTHWASH (Adult) 120ML SWISH-SWAL SCH ×4 (09:20→21:53)
[2016-08-17] MEDS: DOCUSATE SODIUM 50 MG/SENNA 8.6 MG TAB PO SCH (09:20)
[2016-08-17] MEDS: NICOTINE 14 MG/24 HR PATCH TD SCH (09:21)
[2016-08-17] MEDS: SODIUM CHLORIDE 0.9% FLUSH 5 ML FLUSH FLUSH SCH ×2 (09:22→22:02)
[2016-08-17] MEDS: SODIUM CHLOR 0.9% 1000 ML INJ 1,000 ML IV SCH ×2 (09:24→22:03)
[2016-08-17] MEDS: guaiFENesin E.R. 600 MG TAB PO SCH ×2 (09:33→21:55)
--- NOTE | 2016-08-17 10:57 | HHI.PR ---
Subjective Remarks Follow up for bacteremia with staph hominis and L5-S1 discitis with epidural abscess. Ms. Morse is doing well. She had some sweating today but no fever, chills. Tolerating diet well. We again discussed about possibility of her going home with her parents. I later discussed with patient's mother who will call me back after she discusses with her . Objective Vitals Vital Signs Date Time Temp Pulse Resp B/P Pulse Ox O2 Delivery O2 Flow Rate FiO2 08/17/16 08:01 97.4 66 20 134/81 100 08/17/16 04:51 97.5 85 16 118/74 98 08/17/16 00:36 97.6 101 17 125/91 98 08/16/16 20:52 97.3 92 17 117/80 98 08/16/16 18:55 16 08/16/16 18:55 16 08/16/16 16:42 98.6 90 20 110/77 99 08/16/16 12:28 96.0 77 20 109/77 100 I/O 08/16/16 08/16/16 08/16/16 08/17/16 08/17/16 08/17/16 07:00 15:00 23:00 07:00 15:00 23:00 Intake Total 850 ml 862 ml 480 ml Balance 850 ml 862 ml 480 ml Intake Oral 850 ml 720 ml 480 ml IV Total 142 ml # Voids 4 3 6 4 # Bowel Movements 1 1 Result Diagram: 08/13/16 0639 08/13/16 0639 Imaging Last Impressions Lumbar Spine CT 08/12/16 0000 Signed Impressions: Service Date/Time: Friday, August 12, 2016 16:32 - CONCLUSION: Findings of discitis as described L5-S1. The left posterior to S1 there is a 9 mm more this bone fragment encroaching upon the canal and left lateral S1 recess. Timothy Mann MD Chest X-Ray 08/06/16 0000 Signed Impressions: Service Date/Time: July 16:17 - CONCLUSION: 1. Right upper extremity PICC line with the tip projecting over the central venous system. 2. No acute cardiopulmonary process. Bruno Jin MD Lumbar Spine X-Ray 07/30/16 0000 Signed Impressions: Service Date/Time: July 21:10 - CONCLUSION: 1. Surgical instruments overlie posterior elements at lumbosacral junction. Ovidio Mac MD Lumbar Spine MRI 07/30/16 0000 Signed Impressions: Service Date/Time: July 09:15 - CONCLUSION: 1. Acute discitis and associated osteomyelitis involving the L5-S1 level and the L5 and S1 vertebral bodies with moderate-sized anterior epidural abscess extending from the top of L5 to the bottom of S1 centrally and within the left paracentral region. The epidural abscess appears to impinge upon the left S1 nerve root and effaces the left anterior lateral aspect of the thecal sac at this level. 2. Moderate bilateral foraminal narrowing at L5-S1 secondary to diffuse disc bulge and facet joint hypertrophy bilaterally. 3. Minimal bilateral foraminal narrowing at L2-3 and L3-4. Vincent Olsen MD Abdomen/Pelvis CT 07/27/16 1623 Signed Impressions: Service Date/Time: Wednesday, July 27, 2016 19:04 - CONCLUSION: 1. Left lower lobe consolidation medially most characteristic of pneumonia. Right lung is clear. 2. Moderate constipation with ileus. 3. No renal calculi or evidence for obstructive uropathy. 4. Bladder mildly distended. No bladder calculi. Ovidio Mac MD Objective Remarks GENERAL: AOX3, NAD. SKIN: Warm and dry. HEAD: Normocephalic. EYES: No scleral icterus. No injection or drainage. NECK: Supple, trachea midline. No JVD or lymphadenopathy. CARDIOVASCULAR: Regular rate and rhythm without murmurs, gallops, or rubs. RESPIRATORY: Breath sounds equal bilaterally. No accessory muscle use. GASTROINTESTINAL: Abdomen soft, non-tender, nondistended. MUSCULOSKELETAL: No cyanosis, or edema. BACK: Nontender without obvious deformity. No CVA tenderness. Procedures 07/30/16 left L5 semi-hemilaminectomy, evacuation of epidural abscess, resection of degenerative herniated disc Line: PICC A/P Problem List: (1) Bacteremia ICD Code: R78.81 Status: Acute (2) Left lower lobe pneumonia ICD Code: J18.1 Status: Acute (3) IVDU (intravenous drug user) ICD Code: F19.90 Status: Acute (4) Discitis of lumbosacral region ICD Code: M46.47 Status: Acute (5) Abscess in epidural space of lumbar spine ICD Code: G06.1 Status: Acute (6) Tobacco abuse ICD Code: Z72.0 Status: Chronic Assessment and Plan Ms. Morse is a 36-year-old female with history of IVDU, chronic back pain, sciatica, migraines, admitted on 07/28/2016 with a one-week history of back pain. She underwent left L5 semi-hemilaminectomy, evacuation epidural abscess, resection degenerative herniated disc by Dr. Baer (Neurosurgery) on 07/30/2016. Abscess cx grew Pseudomonas and blood culture grew Staph hominis. TTE negative for any vegetation. 1. Bacteremia (staph hominis), L5-S1 discitis/osteomyelitis with epidural abscess (Cx positive for pseudomonas): Status post laminectomy by neurosurgery on 07/30/16-. Appreciate infectious disease recommendations. Continue IV antibiotics cefepime, Levaquin Lumbar CT 08/12 noted. 2-D echo was negative for vegetations. Repeat blood cultures are negative. Weekly labs with CBC, creatinine and LFTs. Patient can potentially go home with her parents and receive Abx via an infusion pump. - I discussed with patient's mother who will discuss with her . They will get back to me later. - If patient's parents agree to keep a very close eye on their daughter, we will likely consider discharging her home with infusion pump. 2. Postsurgical back pain: Switch Flexeril to Baclofen. Continue pain medications - Morphine SR 30mg Q12hrs, [place] PRN 3. IV drug abuse: Counseled. Most recent use was reportedly 8 days prior to admission. 4. Tobacco abuse: Counseled to quit smoking. Nicotine patch as needed. 5. Left lower lobe pneumonia on admission. Now resolved. Full code. SCDs. Lovenox or Heparin SQ if okay with neurosurgery. Continue ambulation. Problem Qualifiers (1) Left lower lobe pneumonia: Qualified Code: J18.1 - Pneumonia of left lower lobe due to infectious organism Radhika Pringle DO Aug 17, 2016 10:57 am
[2016-08-17 12:17] VITALS: BP 117/70; PULSE 70; RESP 20; TEMP 98; O2SAT 95
[2016-08-17] MEDS: LEVOFLOXACIN 750 MG TAB PO SCH (12:24)
[2016-08-17] MEDS: CEFEPIME INJ 2,000 MG in SODIUM CHLORIDE 0.9% INJ 100 ML IV SCH ×2 (12:25→22:02)
[2016-08-17] MEDS: BACLOFEN 10 MG TAB PO SCH ×2 (13:52→21:56)
[2016-08-17 15:01] VITALS: BP 110/63; PULSE 74; RESP 20; TEMP 97.4; O2SAT 100
[2016-08-17 20:35] VITALS: BP 129/81; PULSE 91; RESP 18; TEMP 98.8; O2SAT 99
[2016-08-17] MEDS: diphenhydrAMINE HCL 25 MG CAP PO SCH (21:00)
[2016-08-18 00:19] VITALS: BP 107/67; PULSE 99; RESP 20; TEMP 97.6; O2SAT 100
[2016-08-18] MEDS: ACETAMINOPHEN/HYDROcodone 325 MG/5 MG TAB PO PRN ×4 (00:24→17:56)
[2016-08-18 05:26] VITALS: BP 118/66; PULSE 75; RESP 20; TEMP 98.2; O2SAT 100
[2016-08-18] MEDS: SODIUM CHLOR 0.9% 1000 ML INJ 1,000 ML IV SCH ×2 (05:30→14:35)
[2016-08-18] MEDS: BACLOFEN 10 MG TAB PO SCH ×2 (06:57→14:33)
[2016-08-18 08:10] VITALS: BP 112/61; PULSE 74; RESP 20; TEMP 97.6; O2SAT 97
[2016-08-18] MEDS: NICOTINE 14 MG/24 HR PATCH TD SCH (08:50)
[2016-08-18] MEDS: NYSTAT/DIPHENHY/LIDO MOUTHWASH (Adult) 120ML SWISH-SWAL SCH ×2 (08:50→12:14)
[2016-08-18] MEDS: REMOVE OLD PATCH TD SCH (08:50)
[2016-08-18] MEDS: guaiFENesin E.R. 600 MG TAB PO SCH (08:51)
[2016-08-18] MEDS: DOCUSATE SODIUM 50 MG/SENNA 8.6 MG TAB PO SCH (08:53)
[2016-08-18] MEDS: IBUPROFEN 600 MG TAB PO SCH ×2 (08:53→12:14)
[2016-08-18] MEDS: BISACODYL 10 MG SUPP RECTAL SCH (08:53)
[2016-08-18] MEDS: CHOLECALCIFEROL (VIT D3) 1000 UNIT TAB PO SCH (08:53)
[2016-08-18] MEDS: LACTOBACILLUS ACIDOPHILUS TAB PO SCH ×2 (08:56→12:14)
[2016-08-18] MEDS: MORPHINE SULFATE 30 MG CONTROLLED RELEASE TAB PO SCH (08:56)
[2016-08-18] MEDS: SODIUM CHLORIDE 0.9% FLUSH 5 ML FLUSH FLUSH SCH (08:57)
--- NOTE | 2016-08-18 11:15 | HHI.FF ---
Infusion Therapy Location of Infusion Therapy: Ambulatory Infusion Therapy Order Patient Information Patient Weight 59 kg Diagnosis: Diagnosis PSAE epidural abscess, discitis Coded Allergies: Dimetapp (Verified Allergy, Severe, Hives, 11/21/15) Administer Medication Cefepime Cefepime 4 gm IV continuous infusion daily Stop Treatment: Sep 23, 2016 Additional Information Additional Medications Cipro 500 mg PO BID x 28 days Additional Instructions [x] Peripheral flush and dressing changes per protocol [x] Implanted port and central service line layer: * Implanted port: 10 ml Normal Saline followed by 5 ml Heparin 100 units/ml Heparin flush after each use and monthly to maintain. [] May leave port accessed during therapy. [] May leave peripheral site accessed for duration of therapy. [x] If patient has SOB or respiratory distress, check oxygen saturation. If less than 90% or clinical signs of respiratory distress, administer oxygen at 2 L/min. via nasal cannula and notify physician. [x] Anaphylaxis/Reaction orders: * Stop infusion. * Keep IV line open with saline flush. * Notify physician. * Monitor vital signs every 15 minutes until symptoms resolve. * Check Oxygen saturation; Oxygen at 2 L/min. via nasal cannula if less than 90% or clinical signs of respiratory distress. * Administer diphenhydramine (Benadryl) 25 mg IV STAT, (unless patient has received as pre-med). May repeat once, if necessary. * Solu-Cortef 250 mg IVP over 30-60 seconds, use 100 mg vials for each dissolution. * Epinephrine (1mg/1 ml) 0.3 mg subcutaneously or IVP now with any signs of respiratory distress. * Check with physician for new additional pre-med orders if patient is re- challenged or re-treated. [x] May remove PICC line when treatment complete, after confirming with Physician. [x] If the patient is admitted to the hospital, the ED, or transferred via [facility] , complete transfer form including medication reconciliation order sheet. Laboratory Tests Weekly Labs: CMP, Creatinine, CRP, LFT's (Hepatic function test) (Every Wednesday - copy to me please) Tamika Leiva MD Aug 18, 2016 11:15
[2016-08-18] MEDS ORDERED: LACT PO (12:02)
[2016-08-18] MEDS ORDERED: MAGICADU2 SWISH-SWAL (12:02)
[2016-08-18] MEDS ORDERED: CIPR500T2 PO (12:02)
[2016-08-18] MEDS ORDERED: HYDR-3516 PO (12:02)
[2016-08-18] MEDS ORDERED: BACL10TA PO (12:02)
--- NOTE | 2016-08-18 12:09 | HHI.DS ---
Discharge Summary Admission Date Jul 29, 2016 at 15:38 Discharge Date: Aug 18, 2016 Admitting Diagnosis pyelonephritis, LLL pneumonia (1) Bacteremia ICD Code: R78.81 (2) Left lower lobe pneumonia ICD Code: J18.1 (3) IVDU (intravenous drug user) ICD Code: F19.90 (4) Discitis of lumbosacral region ICD Code: M46.47 (5) Abscess in epidural space of lumbar spine ICD Code: G06.1 (6) Tobacco abuse ICD Code: Z72.0 Procedures 07/30/16 left L5 semi-hemilaminectomy, evacuation of epidural abscess, resection of degenerative herniated disc Brief History - From Admission 36-year-old female with history of IVDU, chronic back pain, sciatica, migraines , presents with a one-week history of back pain. 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 Denies fevers or chills. She went to [facility], given Lortab and muscle relaxers without any relief. States she has been mostly nonambulatory over the past few days. Her friend gave her a milligrams of oral Dilaudid which did eventually help the pain. Patient initially reported increase in urinary urgency and dysuria, UA with possible UTI. She denies any nausea/vomiting/diarrhea/ constipation. CT abdomen was done in the ER, showed LLL infiltrate. Upon questioning, she does report productive cough with yellow sputum for 1 month now worse over the past week. Denies any chest pain. She states the cough exacerbates her back pain. She admits to IV drug use, mostly with opiates, last use 8 days ago. She denies any history of endocarditis. She states she has been checked for HIV recently and was negative. Imaging Last Impressions Lumbar Spine CT 08/12/16 0000 Signed Impressions: Service Date/Time: Friday, August 12, 2016 16:32 - CONCLUSION: Findings of discitis as described L5-S1. The left posterior to S1 there is a 9 mm more this bone fragment encroaching upon the canal and left lateral S1 recess. Timothy Mann MD Chest X-Ray 08/06/16 0000 Signed Impressions: Service Date/Time: July 16:17 - CONCLUSION: 1. Right upper extremity PICC line with the tip projecting over the central venous system. 2. No acute cardiopulmonary process. Bruno Jin MD Lumbar Spine X-Ray 07/30/16 0000 Signed Impressions: Service Date/Time: July 21:10 - CONCLUSION: 1. Surgical instruments overlie posterior elements at lumbosacral junction. Ovidio Mac MD Lumbar Spine MRI 07/30/16 0000 Signed Impressions: Service Date/Time: July 09:15 - CONCLUSION: 1. Acute discitis and associated osteomyelitis involving the L5-S1 level and the L5 and S1 vertebral bodies with moderate-sized anterior epidural abscess extending from the top of L5 to the bottom of S1 centrally and within the left paracentral region. The epidural abscess appears to impinge upon the left S1 nerve root and effaces the left anterior lateral aspect of the thecal sac at this level. 2. Moderate bilateral foraminal narrowing at L5-S1 secondary to diffuse disc bulge and facet joint hypertrophy bilaterally. 3. Minimal bilateral foraminal narrowing at L2-3 and L3-4. Vincent Olsen MD Abdomen/Pelvis CT 07/27/16 1623 Signed Impressions: Service Date/Time: Wednesday, July 27, 2016 19:04 - CONCLUSION: 1. Left lower lobe consolidation medially most characteristic of pneumonia. Right lung is clear. 2. Moderate constipation with ileus. 3. No renal calculi or evidence for obstructive uropathy. 4. Bladder mildly distended. No bladder calculi. Ovidio Mac MD PE at Discharge GENERAL: AOX3, NAD. SKIN: Warm and dry. HEAD: Normocephalic. EYES: No scleral icterus. No injection or drainage. NECK: Supple, trachea midline. No JVD or lymphadenopathy. CARDIOVASCULAR: Regular rate and rhythm without murmurs, gallops, or rubs. RESPIRATORY: Breath sounds equal bilaterally. No accessory muscle use. GASTROINTESTINAL: Abdomen soft, non-tender, nondistended. MUSCULOSKELETAL: No cyanosis, or edema. BACK: Nontender without obvious deformity. No CVA tenderness. Pt update on day of discharge Ms. Morse is doing well. No acute concerns. Discussed with her parents yesterday. Parents are very supportive and assured that they will watch her carefully while she is on IV abx. Discussed with ID and Patient. Per ID rec, we will continue IV cefepime for 5 more days and continue Cipro for 28 days. Both of the abx can be started on 08/19/2016. Hospital Course Ms. Morse is a 36-year-old female with history of IVDU, chronic back pain, sciatica, migraines, admitted on 07/28/2016 with a one-week history of back pain. She underwent left L5 semi-hemilaminectomy, evacuation epidural abscess, resection degenerative herniated disc by Dr. Baer (Neurosurgery) on 07/30/2016. Abscess cx grew Pseudomonas and blood culture grew Staph hominis. TTE negative for any vegetation. 1. Bacteremia (staph hominis), L5-S1 discitis/osteomyelitis with epidural abscess (Cx positive for pseudomonas): Status post laminectomy by neurosurgery on 07/30/16-. Appreciate infectious disease recommendations. Continue IV antibiotics cefepime, Levaquin Lumbar CT 08/12 noted. 2-D echo was negative for vegetations. Repeat blood cultures are negative. 2. Postsurgical back pain: Switch Flexeril to Baclofen. Continue pain medications - Morphine SR 30mg Q12hrs, [place] PRN 3. IV drug abuse: Counseled. Most recent use was reportedly 8 days prior to admission. 4. Tobacco abuse: Counseled to quit smoking. Nicotine patch as needed. 5. Left lower lobe pneumonia on admission. Now resolved. Discussed with patient's parents on 08/17/2016. Her parents are willing to monitor her very closely. ID recommended IV abx for 5 more days and then PO Cipro. Patient was subsequently discharged home. Pt Condition on Discharge: Good Discharge Disposition: Discharge Home Discharge Time: > 30 minutes Discharge Instructions DIET: Follow Instructions for: As Tolerated, No Restrictions Activities you can perform: Regular-No Restrictions Follow up Referrals: PCP Follow-up - 1 Week New Medications: Ciprofloxacin (Ciprofloxacin) 500 Mg Tab 500 MG PO BID Infection #56 Ref 0 TAB Baclofen (Baclofen) 10 Mg Tab 10 MG PO Q8HR muscle spasm #30 TAB Hydrocodone-Acetaminophen (Hydrocodone-Acetaminophen) 5-325 mg Tab 1 TAB PO Q6HR PRN PAIN SCALE 6 TO 10 #28 TAB Lactobacillus Acidophilus (Acidophilus/l-Sporogenes) 1 Tab Tab 1 TAB PO TID Infection #90 TAB Qksyhrte-Oyxciirfspcaiwm-Rvdnpugst Liq (Magic Mouthwash Adult Liq) 120 Ml Susp 5 ML SWISH-SWAL QID Infection Days 10 ML Radhika Pringle DO Aug 18, 2016 12:09
[2016-08-18] MEDS: CEFEPIME INJ 2,000 MG in SODIUM CHLORIDE 0.9% INJ 100 ML IV SCH ×2 (12:13→17:36)
[2016-08-18] MEDS: LEVOFLOXACIN 750 MG TAB PO SCH (12:14)
--- NOTE | 2016-08-18 12:21 | HHI.IDPN ---
Subjective Subjective Remarks Notes reviewed D/W Dr Pringle Patient has been clinically doing well Less pain meds Patient will be staying with parents Dr Pringle spoke with parents who will keep close eye on patient Abx infusion being set up with ambulatory infuion clinic I spoke with the clinic and we will set up for continuous IV infusion and she will come back to clinic once a day and have bad changed Temps ok No N/V or diarrhea No rash or itching C/S from OR with rare PSAE BC on admission with Staph hominis Repeat BC negative so far TTE report noted, no mention of vegetation 07/30 - Had hemilaminectomy, evac of epidural abscess and resection of degenerated herniated disc Antibiotics Cefepime Levaquin Lines PIV Past Medical History chronic back pain sciatica migraines 2 pregnancies, and 2 spontaneous vaginal delivery Previous HIV testing negative, last one probably in the last 6-12 months done in the outreach clinic Allergies: Coded Allergies: Dimetapp (Verified Allergy, Severe, Hives, 11/21/15) Objective . Vital Signs Date Time Temp Pulse Resp B/P Pulse Ox O2 Delivery O2 Flow Rate FiO2 08/18/16 10:00 20 08/18/16 10:00 20 08/18/16 08:10 97.6 74 20 112/61 97 08/18/16 05:26 98.2 75 20 118/66 100 08/18/16 01:47 18 08/18/16 00:19 97.6 99 20 107/67 100 08/17/16 20:35 98.8 91 18 129/81 99 08/17/16 15:01 97.4 74 20 110/63 100 08/17/16 12:17 98.0 70 20 117/70 95 08/17/16 08/17/16 08/18/16 15:00 23:00 07:00 Intake Total 480 ml 1550 ml Balance 480 ml 1550 ml Intake Oral 480 ml 240 ml IV Total 1310 ml # Voids 4 [address] 08/12/16 0000 Signed Impressions: Service Date/Time: Friday, August 12, 2016 16:32 - CONCLUSION: Findings of discitis as described L5-S1. The left posterior to S1 there is a 9 mm more this bone fragment encroaching upon the canal and left lateral S1 recess. Timothy Mann MD Chest X-Ray 08/06/16 0000 Signed Impressions: Service Date/Time: July 16:17 - CONCLUSION: 1. Right upper extremity PICC line with the tip projecting over the central venous system. 2. No acute cardiopulmonary process. Bruno Jin MD Lumbar Spine X-Ray 07/30/16 0000 Signed Impressions: Service Date/Time: July 21:10 - CONCLUSION: 1. Surgical instruments overlie posterior elements at lumbosacral junction. Ovidio Mac MD Lumbar Spine MRI 07/30/16 0000 Signed Impressions: Service Date/Time: July 09:15 - CONCLUSION: 1. Acute discitis and associated osteomyelitis involving the L5-S1 level and the L5 and S1 vertebral bodies with moderate-sized anterior epidural abscess extending from the top of L5 to the bottom of S1 centrally and within the left paracentral region. The epidural abscess appears to impinge upon the left S1 nerve root and effaces the left anterior lateral aspect of the thecal sac at this level. 2. Moderate bilateral foraminal narrowing at L5-S1 secondary to diffuse disc bulge and facet joint hypertrophy bilaterally. 3. Minimal bilateral foraminal narrowing at L2-3 and L3-4. Vincent Olsen MD Abdomen/Pelvis CT 07/27/16 1623 Signed Impressions: Service Date/Time: Wednesday, July 27, 2016 19:04 - CONCLUSION: 1. Left lower lobe consolidation medially most characteristic of pneumonia. Right lung is clear. 2. Moderate constipation with ileus. 3. No renal calculi or evidence for obstructive uropathy. 4. Bladder mildly distended. No bladder calculi. Ovidio Mac MD Physical Exam GENERAL: awake and alert, not in respiratory distress. SKIN: Warm and moist, no generalized rash. HEENT: Pale conjunctivae. No scleral icterus. Moist oral mucosa. No thrush NECK: Has some cervical lymphadenopathy. Supple, nontender, no meningeal signs. CARDIOVASCULAR: Regular rate and rhythm without murmurs, gallops, or rubs. RESPIRATORY: Clear to auscultation. Breath sounds equal bilaterally. No wheezes , rales, or rhonchi. GASTROINTESTINAL: Abdomen soft, non-tender, mildly distended. Bowel sounds are present and normoactive. No guarding. MUSCULOSKELETAL: Extremities without clubbing, cyanosis, or edema. No joint tenderness, effusion, or edema noted. No calf tenderness. NEUROLOGICAL: Non-focal BACK: Incision dry, ok LINE: PICC with no evidence of infection EXT Genitalia: No evidence of annabel yeast infection Assessment & Plan Remarks IMPRESSION Sepsis on presentation, has Staph hominis (+) BC on admission, patient with IVDU and back pain - Fup BC negative MRI with L5-S1 discitis, osteo and epidural abscess - S/P surgery - C/S with PSAE - Fup CT no abscess seen (+) UA, no significant symptoms Known active IVDU RECOMMENDATION Abx infusion form has been filled out - give at least 8 weeks Change to Cipro - could get free at [facility] weekly while on Abx Discussion regarding her IVDU and family very supportive and will keep eye on her Her Abx will be in a continuous pump so manipulation of IV lesser since she will always be hooked up to the pump D/W [place] D/C once all arrangements made for her IV Abx in the ambulatory infusion clinic Tamika Leiva MD Aug 18, 2016 12:20
[2016-08-18 12:23] VITALS: BP 143/78; PULSE 113; RESP 20; TEMP 98; O2SAT 98
[2016-08-18 16:58] VITALS: BP 120/75; PULSE 95; RESP 20; TEMP 98; O2SAT 99
[2016-08-27] MEDS ORDERED: BACL10TA PO (11:09)
[2016-08-28] MEDS ORDERED: CEFE2INJ2 IV (14:13)
== END 2016-08-18 18:24 | disposition home or self-care (01) | DRG 853 ==
LOC: NEDAMB 14:17 → NEDA 23:13 → NEPFCDU 07-28 02:40 → OBSVTOIN 07-29 15:38 → N07B 07-30 23:14 → HPAC 07-30 23:17 → N05A 07-31 13:38
PROVIDERS: ADMIT Hospitalist; ATTEND Hospitalist
PROC: 0ST40ZZ Resection of Lumbosacral Disc, Open Approach (ICD-10-PCS; 2016-07-30)
PROC: 00C30ZZ Extirpation of Matter from Intracranial Epidural Space, Open Approach (ICD-10-PCS; principal; 2016-07-30 20:16)
PROC: 02HV33Z Insertion of Infusion Device into Superior Vena Cava, Percutaneous Approach (ICD-10-PCS; 2016-08-06)
DX: A41.9 Sepsis, unspecified organism (principal); J18.9 Pneumonia, unspecified organism; G06.1 Intraspinal abscess and granuloma; B37.0 Candidal stomatitis; K56.7 Ileus, unspecified; M46.27 Osteomyelitis of vertebra, lumbosacral region; N20.0 Calculus of kidney; G89.29 Other chronic pain; S39.012A Strain of muscle, fascia and tendon of lower back, initial encounter; M46.47 Discitis, unspecified, lumbosacral region; M51.27 Other intervertebral disc displacement, lumbosacral region; R82.90 Unspecified abnormal findings in urine; M62.838 Other muscle spasm; F11.10 Opioid abuse, uncomplicated; F17.210 Nicotine dependence, cigarettes, uncomplicated; F32.9 Major depressive disorder, single episode, unspecified
CPT/HCPCS: 36569; 71010; 72020; 72100; 72132; 72158; 74176; 76000; 76937; 80048; 80053; 80074; 80202; 81001; 82306; 82565; 82607; 83735; 84100; 84703; 85025; 85652; 86140; 86403; 86703; 87015; 87040; 87070; 87077; 87086; 87102; 87116; 87176; 87186; 87205; 87206; 93005; 93306; 94150; 96361; 96365; 96374; 96376; A9579; G0378; G8987-GP; G8988-GP; J0690; J0692; J0696; J1580; J1642; J1650; J1885; J1956; J2250; J2270; J2370; J2700; J3010; J3370; J3480; J7030; J7050; J7120; L0484; Q9967

== ENCOUNTER 2016-09-06 08:33 | Emergency (ER) | payer OTHER ==
[~2016-09-06] VITALS: Ht 165.1 cm; Wt 60.0 kg
[~2016-09-06 08:33] MED LIST changes: +BACL10TA PO; -BACT800T5 PO; +CEFE2INJ2 IV; +CIPR500T2 PO; -EFFE75CA PO; -FLUO10TA PO; +HYDR-3516 PO; -IBUP800T23 PO; +LACT PO; +MAGICADU2 SWISH-SWAL; -PRENTAB62 PO
[2016-09-06 08:40] VITALS: BP 119/79; PULSE 88; RESP 16; TEMP 98.8; O2SAT 100
--- NOTE | 2016-09-06 09:55 | PD ---
HPI Chief Complaint: Pain: Acute or Chronic Time Seen by Provider: 09:16 Travel History International Travel<30 days: No Contact w/Intl Traveler<30days: No Traveled to known affect area: No History of Present Illness HPI The patient was seen and examined in the presence of the nurse. At no point in time was I in the room without the nurse present. This patient is being treated with IV antibiotics for epidural spinal abscess which was drained by neurosurgeon. She goes to infusion clinic and will be on them for many more weeks. She complains of back pain. She has no injury. No fever. She has history of IV drug abuse but has not used since her hospital stay. Symptoms severity is moderate PFSH Past Medical History Bipolar Disorder: Yes (? PATIENT DENIES BA STATES YES) Depression: Yes Cardiovascular Problems: No Diminished Hearing: No Genitourinary: Yes (uti) Headaches: Yes Musculoskeletal: Yes Neurologic: No Psychiatric: No Reproductive: No Immunizations Current: Yes Migraines: Yes Seizures: Yes (possible drug induced) Tetanus Vaccination: < 5 Years Influenza Vaccination: No ?: Not LMP: "BEGINNING OF AUGUST 2016" Menopausal: No : 2 Para: 2 Miscarriage: 0 : 0 Social History Alcohol Use: No (PT DENIES) Tobacco Use: Yes (1/2 PPD) Substance Use: Yes (HX OF IVDA, PT DENIES TODAY AND STATES "I'VE BEEN CLEAN SINCE MY SURGERY") Allergies-Medications (Allergen,Severity, Reaction): Coded Allergies: Dimetapp (Verified Allergy, Severe, Hives, 09/06/16) Reported Meds & Prescriptions Reported Meds & Active Scripts Active Baclofen 10 Mg Tab 10 Mg PO Q8HR Ciprofloxacin (Ciprofloxacin HCl) 500 Mg Tab 500 Mg PO BID Magic Mouthwash Adult Liq (Multi-Ingredient Mouthwash/Gargle) 120 Ml Susp 5 Ml SWISH-SWAL QID 10 Days Acidophilus/l-Sporogenes (Lactobacillus Acidophilus) 1 Tab Tab 1 Tab PO TID Hydrocodone-Acetaminophen 5-325 mg Tab 1 Tab PO Q6HR PRN Reported Cefepime Inj (Cefepime HCl) 2 Gm/100 Ml Bagp 4 Gm IV CONTINUOUS Review of Systems General / Constitutional: No: Fever HENT: No: Headaches Cardiovascular: No: Chest Pain or Discomfort Respiratory: No: Cough Physical Exam Narrative GASTROINTESTINAL: Abdomen soft, non-tender, nondistended. Positive bowel sounds. No hepato-splenomegaly, or palpable masses. No guarding. SKIN: Inspection shows no rash or ulcers. Palpation shows no induration or nodules. NECK: Symmetrical appearance, midline trachea. No mass or crepitus. Thyroid without enlargement, tenderness, or mass. Back: Incision looks clean. No dehiscence or discharge or surrounding erythema or tenderness. Data Data Last Documented VS Vital Signs Date Time Temp Pulse Resp B/P Pulse Ox O2 Delivery O2 Flow Rate FiO2 09/06/16 08:40 88 16 09/06/16 08:40 98.8 119/79 100 Room Air MDM Medical Decision Making Medical Screen Exam Complete: Yes Emergency Medical Condition: Yes Medical Record Reviewed: Yes Differential Diagnosis Back pain, lumbar strain, disc herniation, epidural abscess, postsurgical pain Narrative Course I have reviewed the patient's electronic medical record. I reviewed her discharge summary and subsequent primary care follow-up visit was approximately 3 weeks ago Patient's vitals are normal Exam is encouraging I don't have any clinical suspicion of worsening of her infection but we were discussing options. I did offer to get her some pain medication. The discussion seemed to be fine and then abruptly she jumped out of the bed and started getting dressed and says she is leaving and didn't want to be treated like a junkie. There was never any demeaning attitude involved. I did ask her about her most recent drug use which I believe upset her but I think it's medically important to know if she is continuing to use. When I asked her that she got upset. She did not act very mature at all. I tried to continue to explain things to her as she jumped out of the bed but at that point there was no further talking to her and she had decided to leave. So she is leaving against advice. She did not allow me to complete my evaluation. Diagnosis Primary Impression: Left against medical advice Additional Impression: Back pain Qualified Code: M54.5 - Chronic low back pain, unspecified back pain laterality, with sciatica presence unspecified Patient Instructions: General Instructions Departure Forms: Tests/Procedures Disposition: AGAINST MEDICAL ADVICE Condition: Stable Guevara Brown MD Sep 06, 2016 09:55
== END 2016-09-06 09:50 | disposition left against medical advice (07) ==
LOC: NEPE 08:33
DX: M54.5 Low back pain (principal); G89.29 Other chronic pain
CPT/HCPCS: 99283

== ENCOUNTER 2017-04-08 08:23 | Emergency (ER) | payer SELFPAY ==
[~2017-04-08] VITALS: Ht 165.1 cm; Wt 54.0 kg
[2017-04-08 08:24] VITALS: BP 112/71; PULSE 94; RESP 15; TEMP 98.1; O2SAT 98
--- NOTE | 2017-04-08 08:41 | PD ---
HPI Chief Complaint: ENT Complaint Time Seen by Provider: 08:41 Travel History International Travel<30 days: No Contact w/Intl Traveler<30days: No Traveled to known affect area: No History of Present Illness HPI 37-year-old female presents to the emergency department with complaint of an insect in her right ear. Tried removing it at the house with tweezers with no success. Says she can feel it moving in her ear. Describes it as a crunching sensation. Denies pain. Allergies as listed on the chart. Has no other medical complaints. No other modifying factors or associated signs and symptoms. PFSH Past Medical History Bipolar Disorder: Yes (? PATIENT DENIES BA STATES YES) Depression: Yes Cardiovascular Problems: No Diminished Hearing: No Genitourinary: Yes (uti) Headaches: Yes Musculoskeletal: Yes Neurologic: No Psychiatric: No Reproductive: No Immunizations Current: Yes Migraines: Yes Seizures: Yes (possible drug induced) Menopausal: No : 2 Para: 2 Miscarriage: 0 : 0 Social History Alcohol Use: No (PT DENIES) Tobacco Use: Yes (1/2 PPD) Substance Use: Yes (HX OF IVDA, PT DENIES TODAY AND STATES "I'VE BEEN CLEAN SINCE MY SURGERY") Allergies-Medications (Allergen,Severity, Reaction): Coded Allergies: brompheniramine (Unverified Allergy, Severe, Hives, 02/02/17) phenylpropanolamine (Unverified Allergy, Severe, Hives, 02/02/17) Reported Meds & Prescriptions Reported Meds & Active Scripts Active Baclofen 10 Mg Tab 10 Mg PO Q8HR Ciprofloxacin (Ciprofloxacin HCl) 500 Mg Tab 500 Mg PO BID Magic Mouthwash Adult Liq (Multi-Ingredient Mouthwash/Gargle) 120 Ml Susp 5 Ml SWISH-SWAL QID 10 Days Acidophilus/l-Sporogenes (Lactobacillus Acidophilus) 1 Tab Tab 1 Tab PO TID Hydrocodone-Acetaminophen 5-325 mg Tab 1 Tab PO Q6HR PRN Reported Cefepime Inj (Cefepime HCl) 2 Gm/100 Ml Bagp 4 Gm IV CONTINUOUS Review of Systems Except as stated in HPI: all other systems reviewed are Neg Physical Exam Narrative GENERAL: Well-nourished, well-developed female patient, in no acute distress SKIN: Warm and dry. HEAD: Atraumatic. Normocephalic. EYES: Pupils equal and round. No scleral icterus. No injection or drainage. ENT: Mucosa pink and moist. EARS: Unable to visualize right tympanic membrane secondary to a visualized insect in the right ear. NECK: Trachea midline. CARDIOVASCULAR: Regular rate. RESPIRATORY: No accessory muscle use. GASTROINTESTINAL: Flat. MUSCULOSKELETAL: No obvious deformities. No clubbing. No cyanosis. No edema. NEUROLOGICAL: Awake and alert. Oriented 3. No obvious cranial nerve deficits. Motor grossly within normal limits. Normal speech. PSYCHIATRIC: Appropriate mood and affect; insight and judgment normal. Data Data Last Documented VS Vital Signs Date Time Temp Pulse Resp B/P (MAP) Pulse Ox O2 Delivery O2 Flow Rate FiO2 04/08/17 08:24 98.1 94 15 112/71 (85) 98 Orders Orders Ed Discharge Order (04/08/17 08:41) [facility] Medical Decision Making Medical Screen Exam Complete: Yes Emergency Medical Condition: Yes Medical Record Reviewed: Yes Differential Diagnosis Ear foreign body, cerumen impaction, medical clearance Narrative Course 37-year-old female with an insect in her right ear. See my procedure note for insect removal. Instructed patient to follow up with primary care provider. Patient verbalizes understanding and agreement with treatment plan. Patient is medically cleared and stable for discharge. Discussed reasons to return to the emergency department. Patient agrees with treatment plan. The patients vital signs are stable and the patient is stable for outpatient follow-up and treatment. Patient discharged home, stable and in no acute distress. Procedures Procedure Narrative Removal of insect from right ear: The right ear was flooded with normal saline and a cockroach crawled out of her ear. Foreign body successfully removed. Diagnosis Primary Impression: Foreign body in right ear Qualified Codes: T16.1XXA - Foreign body in right ear, initial encounter Referrals: Primary Care Physician Patient Instructions: Ear Foreign Body (ED), General Instructions Additional Instructions: Follow-up with primary care provider Return to the emergency department immediately with worsening of symptoms Med/Other Pt SpecificInfo: No Meds Exist/No RX given Disposition: 01 DISCHARGE HOME Condition: Stable Karime Abdi Apr 08, 2017 08:41
== END 2017-04-08 08:57 | disposition home or self-care (01) ==
LOC: NEPK 08:23
DX: T16.1XXA Foreign body in right ear, initial encounter (principal); F17.200 Nicotine dependence, unspecified, uncomplicated; Z86.59 Personal history of other mental and behavioral disorders; Z87.440 Personal history of urinary (tract) infections; Z87.39 Personal history of other diseases of the musculoskeletal system and connective tissue; Z86.69 Personal history of other diseases of the nervous system and sense organs; X58.XXXA Exposure to other specified factors, initial encounter
CPT/HCPCS: 99283

== ENCOUNTER 2017-06-07 15:53 | Emergency (ER) | payer SELFPAY ==
[~2017-06-07] VITALS: Ht 165.1 cm; Wt 68.2 kg
[2017-06-07 15:54] VITALS: BP 119/70; PULSE 101; RESP 18; TEMP 99; O2SAT 97
[2017-06-07] MEDS ORDERED: CLIN300C5 PO (17:47)
--- NOTE | 2017-06-07 17:47 | PD ---
HPI Chief Complaint: Skin Problem Time Seen by Provider: 17:48 Travel History International Travel<30 days: No Contact w/Intl Traveler<30days: No Traveled to known affect area: No History of Present Illness HPI 37-year-old female here for evaluation of possible skin infection to the right lower extremity. She reports symptoms have been present for the last 4-5 days. Denies injury or trauma to the area. She reports the area developed a clear blister which prompted her visit today. She denies fever or chills. She has a history of IV drug abuse but reports she is not currently using. PFSH Past Medical History Bipolar Disorder: Yes (? PATIENT DENIES BA STATES YES) Depression: Yes Cardiovascular Problems: No Diminished Hearing: No Gastrointestinal Disorders: No Genitourinary: Yes (uti) Headaches: Yes Musculoskeletal: Yes Neurologic: No Psychiatric: No Reproductive: No Immunizations Current: Yes Migraines: Yes Seizures: Yes (possible drug induced) Tetanus Vaccination: Unknown ?: Not Menopausal: No : 2 Para: 2 Miscarriage: 0 : 0 Social History Alcohol Use: Yes Tobacco Use: Yes Substance Use: No Allergies-Medications (Allergen,Severity, Reaction): Coded Allergies: brompheniramine (Unverified Allergy, Severe, Hives, 06/07/17) phenylpropanolamine (Unverified Allergy, Severe, Hives, 06/07/17) Reported Meds & Prescriptions Reported Meds & Active Scripts Active Clindamycin (Clindamycin HCl) 300 Mg Cap 300 Mg PO Q6H 10 Days Review of Systems Except as stated in HPI: all other systems reviewed are Neg General / Constitutional: No: Fever Eyes: No: Visual changes HENT: No: Headaches Cardiovascular: No: Chest Pain or Discomfort Respiratory: No: Shortness of Breath Gastrointestinal: No: Abdominal Pain Genitourinary: No: Dysuria Physical Exam Narrative GENERAL: Alert female. Nontoxic appearing. SKIN: Warm and dry. HEAD: Normocephalic. EYES: No scleral icterus. No injection or drainage. NECK: Supple, trachea midline. CARDIOVASCULAR: Regular rate and rhythm without murmurs, gallops, or rubs. RESPIRATORY: Breath sounds equal bilaterally. No accessory muscle use. GASTROINTESTINAL: Abdomen soft, non-tender, nondistended. MUSCULOSKELETAL: No cyanosis, or edema. Right lower extremity: 5 cm diameter area of erythema with a central blister filled with clear yellow fluid drainage located at the distal anterior aspect of the cameron. The fluid-filled blister is draining clear yellow drainage. The surrounding area is indurated without fluctuance. 2+ dorsal pedis pulse. Brisk cap refill. Data Data Last Documented VS Vital Signs Date Time Temp Pulse Resp B/P (MAP) Pulse Ox O2 Delivery O2 Flow Rate FiO2 06/07/17 18:00 06/07/17 15:54 99.0 101 18 97 Orders Orders Ed Discharge Order (06/07/17 17:48) MDM Medical Decision Making Medical Screen Exam Complete: Yes Emergency Medical Condition: Yes Differential Diagnosis Abscess, cellulitis, lymphangitis Narrative Course 37-year-old female with right lower extremity cellulitis. Patient is nontoxic- appearing. She is afebrile. No tachycardia. Normotensive. On exam she has a 5 cm diameter area of erythema with a central blister clear yellow fluid drainage. The area is indurated without fluctuance. Incision and drainage performed of the area. Patient will be put on clindamycin and instructed to follow-up with the [facility] for recheck. Diagnosis Primary Impression: Abscess Referrals: [facility] Additional Instructions: Apply warm compresses to the area several times per day. Take the antibiotic as prescribed. Follow-up with the [facility] for recheck. Scripts Clindamycin (Clindamycin) 300 Mg Cap 300 MG PO Q6H for Infection for 10 Days, #40 CAP 0 Refills Prov: Che Olmedo 06/07/17 Disposition: 01 DISCHARGE HOME Condition: Stable Che Olmedo Jun 07, 2017 17:47
== END 2017-06-07 18:00 | disposition home or self-care (01) ==
LOC: NEPK 15:53
DX: L02.91 Cutaneous abscess, unspecified (principal)
CPT/HCPCS: 99283